=== PATIENT | female | born 1945 | race Caucasian/White ===

== ENCOUNTER → 2017-06-18 | Outpatient (CLI) | payer MEDICARE, OTHER ==
--- NOTE | 2017-06-18 11:33 | RADIOLOGY REPORT (SQ) ---
EXAM DESCRIPTION: CT HEAD WITHOUT COMPLETED DATE/TIME: 06/18/2017 11:15 am REASON FOR STUDY: R20.2 PARESTHESIA OF SKIN R20.2 PARESTHESIA OF SKIN COMPARISON: MRA exam [facility] [place] 08/06/2012 CT brain 08/05/2012 TECHNIQUE: Axial images acquired through the brain without intravenous contrast. Images reviewed wi th bone, brain and subdural windows. Images stored on PACS. All CT scanners at this facility use dose modulation, iterative reconstruction, and/or weight based d osing when appropriate to reduce radiation dose to as low as reasonably achievable (ALARA). [facility]: Dose Right [facility]: CareDose [facility]: Dose Right [facility]: Teradose 4D [facility]: [employer] Digital RADIATION DOSE: CT Rad equipment meets quality standard of care and radiation dose reduction techniq ues were employed. CTDIvol: 21.6 mGy. DLP: 389 mGy-cm. mGy. LIMITATIONS: Very mild motion artifact FINDINGS: VENTRICLES: Normal size and contour. CEREBRUM: No masses. No hemorrhage. No midline shift. No evidence for acute infarction. Normal gra y/white matter differentiation. No areas of low density in the white matter. CEREBELLUM: No masses. No hemorrhage. No alteration of density. No evidence for acute infarction. EXTRAAXIAL SPACES: No fluid collections. No masses. ORBITS AND GLOBE: No intra- or extraconal masses. Normal contour of globe without masses. CALVARIUM: No fracture. PARANASAL SINUSES: No fluid or mucosal thickening. SOFT TISSUES: No mass or hematoma. OTHER: No other significant finding. IMPRESSION: NORMAL BRAIN CT WITHOUT CONTRAST. EVIDENCE OF ACUTE STROKE: NO. COMMENT: Quality ID # 436: Final reports with documentation of one or more dose reduction techniques (e.g., Automated exposure control, adjustment of the mA and/or kV according to patient size, use of iterative reconstruction technique) TECHNICAL DOCUMENTATION: JOB ID: [id number] [employer]- All Rights Reserved Reading location - IP/workstation name: [email or web address]
== END ==
LOC: RAD 11:48
PROVIDERS: ATTEND Physician Assistant
DX: R20.2 Paresthesia of skin (principal)
CPT/HCPCS: 70450

== ENCOUNTER → 2017-06-19 | Outpatient (CLI) | payer MEDICARE, MEDICAID ==
--- NOTE | 2017-06-19 12:16 | RADIOLOGY REPORT (SQ) ---
EXAM DESCRIPTION: CAROTID DOPPLER COMPLETED DATE/TIME: 06/19/2017 12:06 pm REASON FOR STUDY: PARESTHESIA OF SKIN R20.0 R20.2 PARESTHESIA OF SKIN COMPARISON: None. TECHNIQUE: Grayscale ultrasound, Doppler velocity and spectra, and color Doppler images acquired of the extra-cranial carotid and vertebral arteries. Images stored on PACS. LIMITATIONS: None. FINDINGS: RIGHT CAROTID CCA Velocities: Within normal limits. ICA Velocities Peak systolic 1.7 m/s. End diastolic 0.55 m/s. Proximal ICA/CCA peak systolic ratio 1.9. Spectra normal. No significant plaque. LEFT CAROTID CCA Velocities: Within normal limits. ICA Velocities Peak systolic 1.23 m/s. End diastolic 0.46 m/s. Proximal ICA/CCA peak systolic ratio 1.7. Spectra normal. No significant plaque. VERTEBRAL ARTERIES: Antegrade flow SUBCLAVIAN ARTERIES: No significant fine OTHER: No other significant findings IMPRESSION: Flow velocities in the right internal carotid artery are consistent with a 50 to 69% april nosis. Flow velocities in the left internal carotid artery are borderline for a 50 to 69% stenosis. COMMENT: Quality ID #[id number]: Velocity criteria are extrapolated from the diameter data as defined by t he Society of Radiologists in Ultrasound Consensus Conference. Radiology 2003: 229; 340-346. TECHNICAL DOCUMENTATION: JOB ID: [id number] [employer]- All Rights Reserved Reading location - IP/workstation name: [facility]
== END ==
LOC: SP 10:19
PROVIDERS: ATTEND Physician Assistant
DX: R20.2 Paresthesia of skin (principal)
CPT/HCPCS: 93880

== ENCOUNTER → 2017-10-08 | Outpatient (CLI) | payer MEDICARE ==
[2017-10-08 09:46] LABS: BLOOD UREA NITROGEN 11 mg/dL (7-20); CALCIUM 9.4 mg/dL (8.4-10.2); CHLORIDE 99 mmol/L (98-107); GLUCOSE 102 mg/dL (75-110); POTASSIUM 3.5 mmol/L (3.6-5.0); SODIUM 147.5 mmol/L (137-145)
[2017-10-08 10:23] LABS: ANION GAP 12 (5-19)
[2017-10-08 10:24] LABS: CARBON DIOXIDE 37 mmol/L (22-30)
== END ==
LOC: OD 08:29
PROVIDERS: ATTEND Internal Medicine Cardiovascular Disease
DX: R60.9 Edema, unspecified (principal); I10 Essential (primary) hypertension; R06.02 Shortness of breath; I48.2 Chronic atrial fibrillation; Z79.899 Other long term (current) drug therapy
CPT/HCPCS: 36415; 80048; 83735; 83880

== ENCOUNTER → 2017-10-10 | Outpatient (CLI) | payer MEDICARE ==
--- NOTE | 2017-10-10 12:15 | RADIOLOGY REPORT (SQ) ---
EXAM DESCRIPTION: CHEST 2 VIEWS COMPLETED DATE/TIME: 10/10/2017 11:58 am REASON FOR STUDY: MILD INTERMITTENT ASTHMA WITH (ACUTE) EXACERBATION COMPARISON: 08/05/2012 EXAM PARAMETERS: NUMBER OF VIEWS: two views TECHNIQUE: Digital Frontal and Lateral radiographic views of the chest acquired. RADIATION DOSE: NA LIMITATIONS: none FINDINGS: LUNGS AND PLEURA: COPD. Mild chronic interstitial changes. MEDIASTINUM AND HILAR STRUCTURES: Small hiatal hernia. HEART AND VASCULAR STRUCTURES: Mild cardiomegaly. No evidence of failure. BONES: No acute findings. Osteopenia. HARDWARE: Status post CABG and valve replacement. OTHER: No other significant finding. IMPRESSION: Chronic changes without evidence of acute cardiopulmonary disease. TECHNICAL DOCUMENTATION: JOB ID: [id number] [employer]- All Rights Reserved Reading location - IP/workstation name: [email or web address]
== END ==
LOC: RAD 11:28
PROVIDERS: ATTEND Physician Assistant
DX: J45.21 Mild intermittent asthma with (acute) exacerbation (principal)
CPT/HCPCS: 71046

== ENCOUNTER → 2017-10-15 | Outpatient (CLI) | payer MEDICARE ==
[2017-10-15 17:24] LABS: INTERNATIONAL RATION (INR) 2.26
[2017-10-15 17:40] LABS: ANION GAP 10 (5-19); BLOOD UREA NITROGEN 13 mg/dL (7-20); CARBON DIOXIDE 36 mmol/L (22-30); CHLORIDE 99 mmol/L (98-107); GLUCOSE 84 mg/dL (75-110); POTASSIUM 4.2 mmol/L (3.6-5.0); SODIUM 145.1 mmol/L (137-145)
== END ==
LOC: OD 16:01
PROVIDERS: ATTEND Internal Medicine Cardiovascular Disease
DX: E87.6 Hypokalemia (principal); R60.9 Edema, unspecified; I48.2 Chronic atrial fibrillation; I10 Essential (primary) hypertension
CPT/HCPCS: 36415; 80048; 85610

== ENCOUNTER → 2017-10-22 | Outpatient (CLI) | payer MEDICARE ==
[2017-10-22 10:59] LABS: INTERNATIONAL RATION (INR) 2.51; PROTHROMBIN TIME 28.2 SEC (11.4-15.4)
== END ==
LOC: LAB 10:22
PROVIDERS: ATTEND Internal Medicine Cardiovascular Disease
DX: I48.2 Chronic atrial fibrillation (principal)
CPT/HCPCS: 36415; 85610

== ENCOUNTER → 2017-10-30 | Outpatient (CLI) | payer MEDICAID, MEDICARE ==
--- NOTE | 2017-10-30 12:39 | XCELERA REPORT ---
[address] [address] Lower Extremity Arterial Evaluation Name: SOFIA MISTRY Age: 72 yrs Gender: Female : 1945 Patient Status: Outpatient Patient Location: Study Date: 10/30/2017 08:28 AM Procedure: A color flow and duplex scan of the lower extremity arteries was performed bilaterally with velocity and waveform anaylsis. Reason For Study: ABSENT PULSES Ordering Physician: GÓMEZ REYNOSO Performed By: Kobe Wong Measurements and Calculations Right Left REINSTATEMENT CLERK PSV 166.0 165.9 cm/sec Prox PFA PSV -157.2 -103.4 cm/sec Prox SFA PSV 111.9 163.3 cm/sec Mid SFA PSV -148.5 -130.6 cm/sec Dist SFA PSV -69.0 -93.3 cm/sec Prox Pop A PSV 130.4 128.7 cm/sec Dist SURESH PSV 71.2 76.6 cm/sec Dist TELEVISION WRITER PSV 97.8 75.5 cm/sec Rk Pedis PSV 32.2 84.0 cm/sec Right Side Arterial Evaluation Normal velocity and biphasic waveforms noted from the Common Femoral artery to the infrageniculate vessels. 20-19 % stenosis, inflow. Ankle Brachial index not done. Left Side Arterial Evaluation Normal velocity and triphasic waveforms noted in the Common Femoral artery. Biphasic thereafter to the infrageniculate vessels. 0-19% stenosis at the Femoral artery. Ankle Brachial index not done. Interpretation Summary Moderate hemodynamically significant lesions in the right lower extremity only, on duplex imaging, at rest. Mild hemodynamically significant lesions in the left lower extremity only, on duplex imaging, at rest. : GÓMEZ REYNOSO > Gómez Reynoso
== END ==
LOC: SP 07:55
PROVIDERS: ATTEND Surgery
DX: R09.89 Other specified symptoms and signs involving the circulatory and respiratory systems (principal)
CPT/HCPCS: 93925

== ENCOUNTER → 2017-11-06 | Outpatient (CLI) | payer MEDICARE ==
[2017-11-06 10:11] LABS: ANION GAP 7 (5-19); BLOOD UREA NITROGEN 14 mg/dL (7-20); CALCIUM 9.1 mg/dL (8.4-10.2); CARBON DIOXIDE 39 mmol/L (22-30); CHLORIDE 99 mmol/L (98-107); GLUCOSE 102 mg/dL (75-110); POTASSIUM 4.2 mmol/L (3.6-5.0); SODIUM 144.6 mmol/L (137-145)
[2017-11-06 10:13] LABS: INTERNATIONAL RATION (INR) 2.63; PROTHROMBIN TIME 29.3 SEC (11.4-15.4)
== END ==
LOC: LAB 09:29
PROVIDERS: ATTEND Internal Medicine Cardiovascular Disease
DX: I48.2 Chronic atrial fibrillation (principal); I10 Essential (primary) hypertension; E87.6 Hypokalemia; R60.9 Edema, unspecified; Z79.01 Long term (current) use of anticoagulants
CPT/HCPCS: 36415; 80048; 85610

== ENCOUNTER → 2017-11-26 | Outpatient (CLI) | payer MEDICARE, MEDICAID ==
[2017-11-26 14:17] LABS: INTERNATIONAL RATION (INR) 3.63; PROTHROMBIN TIME 37.8 SEC (11.4-15.4)
== END ==
LOC: LAB 13:26
PROVIDERS: ATTEND Internal Medicine Cardiovascular Disease
DX: I48.2 Chronic atrial fibrillation (principal)
CPT/HCPCS: 36415; 85610

== ENCOUNTER → 2018-01-07 | Outpatient (CLI) | payer MEDICARE, MEDICAID ==
[2018-01-07 10:23] LABS: INTERNATIONAL RATION (INR) 3.13; PROTHROMBIN TIME 33.6 SEC (11.4-15.4)
--- NOTE | 2018-01-07 11:23 | RADIOLOGY REPORT (SQ) ---
EXAM DESCRIPTION: CHEST 2 VIEWS COMPLETED DATE/TIME: 01/07/2018 10:18 am REASON FOR STUDY: SHORTNESS OF BREATH COMPARISON: 10/30/2017, 08/05/2012 EXAM PARAMETERS: NUMBER OF VIEWS: two views TECHNIQUE: Digital Frontal and Lateral radiographic views of the chest acquired. RADIATION DOSE: NA LIMITATIONS: none FINDINGS: LUNGS AND PLEURA: Lungs are hyperinflated with flattening of the hemidiaphragms. No focal acute infiltrates. No pleural effusion or pneumothorax. MEDIASTINUM AND HILAR STRUCTURES: Retrocardiac moderate-sized hiatal hernia with air-fluid level HEART AND VASCULAR STRUCTURES: Stable moderate cardiomegaly with old sternotomy and aortic valve repl acement/CABG BONES: Osteoporotic without acute thoracic compression deformity HARDWARE: None in the chest. OTHER: No other significant finding. IMPRESSION: Hyperinflation and hyperlucency from obstructive disease Stable cardiomegaly Old sternotomy with cardiac valve replacement and CABG TECHNICAL DOCUMENTATION: JOB ID: [id number] [employer]- All Rights Reserved Reading location - IP/workstation name: [facility]-[email or web address]
== END ==
LOC: LAB 09:42
PROVIDERS: ATTEND Internal Medicine Cardiovascular Disease
DX: I48.2 Chronic atrial fibrillation (principal); R06.02 Shortness of breath; I51.7 Cardiomegaly; Z95.2 Presence of prosthetic heart valve; Z95.1 Presence of aortocoronary bypass graft; K44.9 Diaphragmatic hernia without obstruction or gangrene
CPT/HCPCS: 36415; 71046; 85610

== ENCOUNTER → 2018-01-13 | Outpatient (CLI) | payer MEDICARE, MEDICAID ==
[2018-01-13 07:37] LABS: INTERNATIONAL RATION (INR) 3.06
[2018-01-14 08:14] LABS: ANION GAP 8 (5-19); BLOOD UREA NITROGEN 16 mg/dL (7-20); CALCIUM 9.7 mg/dL (8.4-10.2); CARBON DIOXIDE 35 mmol/L (22-30); CHLORIDE 100 mmol/L (98-107); GLUCOSE 92 mg/dL (75-110); POTASSIUM 4.4 mmol/L (3.6-5.0); SODIUM 143.3 mmol/L (137-145)
== END ==
LOC: LAB 07:08
PROVIDERS: ATTEND Internal Medicine Cardiovascular Disease
DX: I48.2 Chronic atrial fibrillation (principal); R06.02 Shortness of breath; R60.9 Edema, unspecified
CPT/HCPCS: 36415; 80048; 83880; 85610

== ENCOUNTER 2018-01-23 08:19 | Emergency (ER) | payer MEDICARE, MEDICAID ==
[2018-01-23] MEDS ORDERED: ACETAMINOPHEN 325 MG TABLET PO ONE (09:11)
[2018-01-23] MEDS ORDERED: DIPH/PERTUSS(ACELL)/TETANUS VAC/PF 0.5 ML SYR (>=10YO) IM ONE (09:11)
--- NOTE | 2018-01-23 09:11 | RADIOLOGY REPORT (SQ) ---
EXAM DESCRIPTION: CT HEAD WITHOUT COMPLETED DATE/TIME: 01/23/2018 9:02 am REASON FOR STUDY: fall, head injury, on coumadin COMPARISON: None. TECHNIQUE: Axial images acquired through the brain without intravenous contrast. Images reviewed wi th bone, brain and subdural windows. Additional sagittal and coronal reconstructions were generated. Images stored on PACS. All CT scanners at this facility use dose modulation, iterative reconstruction, and/or weight based d osing when appropriate to reduce radiation dose to as low as reasonably achievable (ALARA). [facility]: Dose Right [facility]: CareDose [facility]: Dose Right [facility]: Teradose 4D [facility]: [employer] RADIATION DOSE: CT Rad equipment meets quality standard of care and radiation dose reduction techniq ues were employed. CTDIvol: 23.1 mGy. DLP: 464 mGy-cm. mGy. LIMITATIONS: None. FINDINGS: VENTRICLES: Prominent. CEREBRUM: No masses. No hemorrhage. No midline shift. Areas of low density in the white matter mos t likely due to chronic micro-vascular ischemic change. No evidence for acute infarction. CEREBELLUM: No masses. No hemorrhage. No alteration of density. No evidence for acute infarction. EXTRAAXIAL SPACES: Mild age-related involutional change. No fluid collections. No masses. ORBITS AND GLOBE: No intra- or extraconal masses. Normal contour of globe without masses. CALVARIUM: No fracture. PARANASAL SINUSES: No fluid or mucosal thickening. SOFT TISSUES: Right frontal scalp hematoma. OTHER: No other significant finding. IMPRESSION: MILD CHRONIC CHANGES OF ATROPHY AND MICROVASCULAR ISCHEMIA. NO ACUTE PROCESS. EVIDENCE OF ACUTE STROKE: NO. TECHNICAL DOCUMENTATION: JOB ID: [id number] Quality ID # 436: Final reports with documentation of one or more dose reduction techniques (e.g., Au tomated exposure control, adjustment of the mA and/or kV according to patient size, use of iterative reconstruction technique) 2010 [employer]- All Rights Reserved Reading location - IP/workstation name: [email or web address]
--- NOTE | 2018-01-23 09:13 | RADIOLOGY REPORT (SQ) ---
EXAM DESCRIPTION: CT CERVICAL SPINE WITHOUT COMPLETED DATE/TIME: 01/23/2018 9:02 am REASON FOR STUDY: fall, head injury, on coumadin COMPARISON: None. TECHNIQUE: Axial images acquired through the cervical spine without intravenous contrast. Images re viewed with lung, soft tissue and bone windows. Reconstructed coronal and sagittal MPR images review ed. Images stored on PACS. All CT scanners at this facility use dose modulation, iterative reconstruction, and/or weight based d osing when appropriate to reduce radiation dose to as low as reasonably achievable (ALARA). [facility]: Dose Right [facility]: CareDose [facility]: Dose Right [facility]: Teradose 4D [facility]: [employer] RADIATION DOSE: CT Rad equipment meets quality standard of care and radiation dose reduction techniq ues were employed. CTDIvol: 36.2 mGy. DLP: 739 mGy-cm. mGy. LIMITATIONS: None. FINDINGS: ALIGNMENT: Kyphosis. MINERALIZATION: Normal. VERTEBRAL BODIES: No fractures or dislocation. DISCS: Multilevel disc space narrowing with osteophytes. FACETS, LATERAL MASSES, POSTERIOR ELEMENTS: Facet arthropathy. No fractures. No dislocation. No ac benton findings. HARDWARE: None in the spine. VISUALIZED RIBS: No fractures. LUNG APICES AND SOFT TISSUES: No significant or acute findings. OTHER: No other significant finding. IMPRESSION: CHRONIC DEGENERATIVE CHANGES. NO ACUTE FINDINGS. TECHNICAL DOCUMENTATION: JOB ID: [id number] Quality ID # [id number]: Final reports with documentation of one or more dose reduction techniques (e.g., Au tomated exposure control, adjustment of the mA and/or kV according to patient size, use of iterative reconstruction technique) 2010 [employer]- All Rights Reserved Reading location - IP/workstation name: [email or web address]
--- NOTE | 2018-01-23 09:38 | RADIOLOGY REPORT (SQ) ---
EXAM DESCRIPTION: FINGER RIGHT COMPLETED DATE/TIME: 01/23/2018 9:29 am REASON FOR STUDY: r 5th finger injury COMPARISON: None. NUMBER OF VIEWS: Three views. TECHNIQUE: AP, lateral, and oblique images acquired of the right fifth finger. LIMITATIONS: None. FINDINGS: MINERALIZATION: Osteopenia. BONES: No acute fracture or dislocation. No worrisome bone lesions. SOFT TISSUES: No soft tissue swelling. No foreign body. OTHER: No other significant finding. IMPRESSION: NO RADIOGRAPHIC EVIDENCE OF ACUTE INJURY. COMMENT: SITE OF TRAUMA/COMPLAINT MARKED/STAMP COMPLETED: NOT APPLICABLE. TECHNICAL DOCUMENTATION: JOB ID: [id number] [employer]- All Rights Reserved Reading location - IP/workstation name: [email or web address]
--- NOTE | 2018-01-23 09:40 | ER Document Report ---
ED Fall - General Chief Complaint: Fall Injury Stated Complaint: FALL Time Seen by Provider: 01/23/18 08:40 Mode of Arrival: Wheelchair Information source: Patient, Relative Notes: Patient states that she was walking on a ramp and someone had left a board on the ramp over which she tripped. Patient fell hitting her head on the ramp. Patient does take Coumadin. Patient complains of right sided forehead pain with swelling, bilateral knee abrasions and ecchymosis to right hand. Patient denies any loss of consciousness nausea or vomiting. TRAVEL OUTSIDE OF THE [place] IN LAST 30 DAYS: No - HPI Occurred: Just prior to arrival Where: Home Context: Tripped Associated symptoms: denies: Lost consciousness, Seizure, Difficulty walking Location of injury/pain: Hand, Head, Knee Quality of pain: Achy Pain Level: 1 - Related data Allergies/Adverse Reactions: JANUSZ Inhibitors [Janusz Inhibitors] Allergy (Verified 01/23/18 08:30) Rash ACEINHIBITORS [JANUSZ Inhibitors] Allergy (Verified 01/23/18 08:30) RASH fish derived [Fish derived] Allergy (Verified 01/23/18 08:30) RASH latex Allergy (Verified 01/23/18 08:30) NSAIDS (Non-Steroidal Anti-Inflamma [Nsaids] Allergy (Verified 01/23/18 08:30) RASH tramadol [Tramadol] Allergy (Verified 01/23/18 08:30) RASH Past Medical History - General Information source: Patient - Social History Smoking Status: Former Smoker Chew tobacco use (# tins/day): No Frequency of alcohol use: None Drug Abuse: None Lives with: Family Family History: CVA, DM Patient has suicidal ideation: No Patient has homicidal ideation: No - Past Medical History Cardiac Medical History: Reports: Hx Atrial Fibrillation, Hx Congestive Heart Failure, Hx Coronary Artery Disease, Hx Hypercholesterolemia, Hx Hypertension - MEDS Denies: Hx Heart Attack Pulmonary Medical History: Reports: Hx COPD Denies: Hx Asthma, Hx Bronchitis, Hx Pneumonia Neurological Medical History: Denies: Hx Cerebrovascular Accident, Hx Seizures Renal/ Medical History: Denies: Hx Peritoneal Dialysis GI Medical History: Denies: Hx Hepatitis, Hx Hiatal Hernia, Hx Ulcer Musculoskeletal Medical History: Reports Hx Arthritis Infectious Medical History: Reports: Hx MRSA. Denies: Hx Hepatitis Past Surgical History: Reports: Hx Cardiac Catheterization, Hx Cardiac Surgery, Hx Coronary Artery Bypass Graft, Hx Open Heart Surgery - CABG X2, VALVE REPLACEMENT. Denies: Hx Hysterectomy, Hx Mastectomy, Hx Pacemaker - Immunizations Hx Diphtheria, Pertussis, Tetanus Vaccination: No Hx Pneumococcal Vaccination: 12/08/11 Review of Systems - Review of Systems Constitutional: No symptoms reported. denies: Fever EENT: No symptoms reported Cardiovascular: No symptoms reported. denies: Chest pain Respiratory: No symptoms reported. denies: Cough, Short of breath Gastrointestinal: No symptoms reported. denies: Abdominal pain, Nausea, Vomiting Genitourinary: No symptoms reported Female Genitourinary: No symptoms reported Musculoskeletal: Joint pain - Right hand fifth MCP joint. denies: Back pain Skin: Other - Abrasion to bilateral knees, hematoma to right side of forehead Hematologic/Lymphatic: No symptoms reported Neurological/Psychological: Headaches Physical Exam - Vital signs Vitals: Temp Pulse Resp BP Pulse Ox 97.7 F 82 18 100/81 89 L 01/23/18 08:41 01/23/18 08:41 01/23/18 08:41 01/23/18 08:41 01/23/18 08:41 - General General appearance: Appears well, Alert In distress: None - HEENT Head: Abrasions - Abrasion overlying hematoma to right side of forehead, Ecchymosis, Tenderness. No: Racoon's eyes Eyes: Normal Conjunctiva: Normal Eyelashes: Normal Pupils: PERRL Ears: Normal External canal: Normal Tympanic membrane: Normal. No: Hemotympanum Mouth/Lips: Normal Mucous membranes: Normal Pharynx: Normal Neck: Normal, Supple, Other - Cervical tenderness C 4 through 6 area, no step- offs or deformity. No: Lymphadenopathy - Respiratory Respiratory status: No respiratory distress Chest status: Nontender Breath sounds: Normal. No: Rales, Rhonchi, Stridor, Wheezing Chest palpation: Normal - Cardiovascular Rhythm: Regular Heart sounds: S1 appreciated, S2 appreciated - Abdominal Inspection: Normal Distension: No distension Bowel sounds: Normal Tenderness: Nontender Organomegaly: No organomegaly - Back Back: Normal, Nontender. No: Deformity/step-off, CVA tenderness, Vertebra tenderness - Extremities General upper extremity: Normal strength, Other - Mild ecchymosis overlying right fifth MCP joint, normal range of motion to the joint. General lower extremity: Nontender, Normal strength Knee: Nontender, Abrasion, Patellar tendon intact. No: Deformity, Dislocation, Joint effusion, Laceration, Laxity with valgus stress, Laxity with varus stress , Pain with ROM - Neurological Neuro grossly intact: Yes Cognition: Normal Avalon Coma Scale Eye Opening: Spontaneous Romero Coma Scale Verbal: Oriented Romero Coma Scale Motor: Obeys Commands Avalon Coma Scale Total: 15 - Psychological Associated symptoms: Normal affect, Normal mood - Skin Skin Temperature: Warm Skin Moisture: Dry Skin Color: Ecchymosis - Right side of forehead, right fifth finger Course - Re-evaluation Re-evalutation: 01/23/18 10:12 Patient continues awake alert and oriented. No focal neurologic deficit. Pt without any skull fracture or intracranial hemorrhage after fall. Discussed worsening symptoms of patient should return immediately for. Patient verbalized understanding and agrees with discharge plan of care. Patient's INR is 1.99. Patient does have a mechanical valve. Patient will be advised of her INR and instructed to contact her primary care provider for further instructions regarding her medication regimen. 01/23/18 10:12 - Vital Signs Vital signs: Temp Pulse Resp BP Pulse Ox 97.9 F 80 18 119/64 94 01/23/18 10:48 01/23/18 10:48 01/23/18 10:48 01/23/18 10:48 01/23/18 10:48 - Laboratory Result Diagrams: 01/23/18 09:33 Laboratory results interpreted by me: 01/23/18 01/23/18 09:33 09:33 Hgb 15.7 H PT 23.6 H Labs- Entire Visit 01/23/18 01/23/18 09:33 09:33 WBC 5.4 RBC 4.94 Hgb 15.7 H Hct 46.8 MCV 95 MCH 31.7 MCHC 33.4 RDW 13.3 Plt Count 178 Seg Neutrophils % 67.1 Lymphocytes % 19.9 Monocytes % 9.3 Eosinophils % 2.7 Basophils % 1.0 Absolute Neutrophils 3.6 Absolute Lymphocytes 1.1 Absolute Monocytes 0.5 Absolute Eosinophils 0.1 Absolute Basophils 0.1 PT 23.6 H INR 1.99 - Diagnostic Test Radiology reviewed: Image reviewed, Reports reviewed Discharge - Discharge Clinical Impression: Abrasion of knee, bilateral Fall Qualifiers: Encounter type: initial encounter Qualified Code(s): W19.XXXA - Unspecified fall, initial encounter Head injury Qualifiers: Encounter type: initial encounter Qualified Code(s): S09.90XA - Unspecified injury of head, initial encounter Hematoma of scalp Qualifiers: Encounter type: initial encounter Qualified Code(s): S00.03XA - Contusion of scalp, initial encounter Contusion, hand Qualifiers: Encounter type: initial encounter Laterality: right Qualified Code(s): S60.221A - Contusion of right hand, initial encounter Condition: Stable Disposition: HOME, SELF-CARE Instructions: Abrasions ([facility]), Head Injury Precautions ([facility]), Scalp Hematoma ( [facility]) Additional Instructions: Return immediately for any new or worsening symptoms Followup with your primary care provider, call tomorrow to make a followup appointment You may take Tylenol [id number] to help with any body pain. Your INR today was 1.99. Contact your primary care provider and let them know about your visit today and watch her INR was. They may need to adjust your medications. Referrals: OTTO ALLEN MD [Primary Care Provider] - Follow up as needed KRUPA VANCE PA-C [NO LOCAL MD] - Follow up tomorrow
[2018-01-23 09:50] LABS: ABSOLUTE BASOPHILS # (AUTO) 0.1 10^3/uL (0.0-0.2); ABSOLUTE EOSINOPHILS # (AUTO) 0.1 10^3/uL (0.0-0.6); ABSOLUTE LYMPHOCYTES (AUTO) 1.1 10^3/uL (0.5-4.7); ABSOLUTE MONOCYTES (AUTO) 0.5 10^3/uL (0.1-1.4); ABSOLUTE NEUT (AUTO) 3.6 10^3/uL (1.7-8.2); EOSINOPHILS % (AUTO) 2.7 % (0-6); HEMATOCRIT 46.8 % (36.0-47.0); HEMOGLOBIN 15.7 g/dL (12.0-15.5); LYMPHOCYTES % (AUTO) 19.9 % (13-45); MEAN CORPUSCULAR HEMOGLOBIN 31.7 pg (27.0-33.4); MEAN CORPUSCULAR HGB CONC 33.4 g/dL (32.0-36.0); MEAN CORPUSCULAR VOLUME 95 fl (80-97); MONOCYTES % (AUTO) 9.3 % (3-13); PLATELET COUNT 178 10^3/uL (150-450); RED BLOOD COUNT 4.94 10^6/uL (3.72-5.28); RED CELL DISTRIBUTION WIDTH 13.3 % (11.5-14.0); SEGMENTED NEUTROPHILS % (AUTO) 67.1 % (42-78); TOTAL CELLS COUNTED % (AUTO) 100 %; WHITE BLOOD COUNT 5.4 10^3/uL (4.0-10.5)
[2018-01-23 09:55] LABS: INTERNATIONAL RATION (INR) 1.99; PROTHROMBIN TIME 23.6 SEC (11.4-15.4)
[2018-01-23 10:54] VITALS: BP 119/64
== END 2018-01-23 10:55 | disposition home or self-care (01) ==
LOC: ER 08:19
DX: S09.90XA Unspecified injury of head, initial encounter (principal); S00.03XA Contusion of scalp, initial encounter; S60.221A Contusion of right hand, initial encounter; S60.511A Abrasion of right hand, initial encounter; Z23 Encounter for immunization; W01.0XXA Fall on same level from slipping, tripping and stumbling without subsequent striking against object, initial encounter; Y92.009 Unspecified place in unspecified non-institutional (private) residence as the place of occurrence of the external cause; I48.91 Unspecified atrial fibrillation; I50.9 Heart failure, unspecified; E78.00 Pure hypercholesterolemia, unspecified; I11.0 Hypertensive heart disease with heart failure; J44.9 Chronic obstructive pulmonary disease, unspecified; Z95.1 Presence of aortocoronary bypass graft; Z88.6 Allergy status to analgesic agent; Z91.040 Latex allergy status; Z95.2 Presence of prosthetic heart valve
CPT/HCPCS: 36415; 70450; 72125; 85025; 85610; 90471; 90715; 99284

== ENCOUNTER → 2018-01-28 | Outpatient (CLI) | payer MEDICARE, MEDICAID ==
[2018-01-28 08:16] LABS: INTERNATIONAL RATION (INR) 3.17
== END ==
LOC: LAB 07:52
PROVIDERS: ATTEND Internal Medicine Cardiovascular Disease
DX: I48.2 Chronic atrial fibrillation (principal); Z79.01 Long term (current) use of anticoagulants
CPT/HCPCS: 36415; 85610

== ENCOUNTER → 2018-02-03 | Outpatient (CLI) | payer MEDICARE, MEDICAID ==
[2018-02-03 11:11] LABS: INTERNATIONAL RATION (INR) 1.64; PROTHROMBIN TIME 20.2 SEC (11.4-15.4)
[2018-02-03 11:31] LABS: ANION GAP 9 (5-19); BLOOD UREA NITROGEN 18 mg/dL (7-20); CALCIUM 9.5 mg/dL (8.4-10.2); CARBON DIOXIDE 39 mmol/L (22-30); CHLORIDE 96 mmol/L (98-107); GLUCOSE 106 mg/dL (75-110); POTASSIUM 4.7 mmol/L (3.6-5.0)
== END ==
LOC: LAB 10:34
PROVIDERS: ATTEND Internal Medicine Cardiovascular Disease
DX: R60.9 Edema, unspecified (principal); R06.02 Shortness of breath; I48.2 Chronic atrial fibrillation; Z79.01 Long term (current) use of anticoagulants
CPT/HCPCS: 36415; 80048; 85610

== ENCOUNTER → 2018-02-10 | Outpatient (CLI) | payer MEDICARE, MEDICAID ==
[2018-02-10 10:51] LABS: INTERNATIONAL RATION (INR) 2.55; PROTHROMBIN TIME 28.6 SEC (11.4-15.4)
[2018-02-10 11:04] LABS: ANION GAP 11 (5-19); BLOOD UREA NITROGEN 15 mg/dL (7-20); CALCIUM 9.5 mg/dL (8.4-10.2); CARBON DIOXIDE 36 mmol/L (22-30); CHLORIDE 97 mmol/L (98-107); GLUCOSE 103 mg/dL (75-110); POTASSIUM 4.6 mmol/L (3.6-5.0); SODIUM 144.2 mmol/L (137-145)
== END ==
LOC: LAB 10:13
PROVIDERS: ATTEND Internal Medicine Cardiovascular Disease
DX: R80.9 Proteinuria, unspecified (principal); I48.2 Chronic atrial fibrillation; Z79.01 Long term (current) use of anticoagulants
CPT/HCPCS: 36415; 80048; 85610

== ENCOUNTER → 2018-02-24 | Outpatient (CLI) | payer MEDICARE, MEDICAID ==
[2018-02-24 09:02] LABS: INTERNATIONAL RATION (INR) 2.86; PROTHROMBIN TIME 31.3 SEC (11.4-15.4)
[2018-02-24 09:18] LABS: ANION GAP 11 (5-19); BLOOD UREA NITROGEN 17 mg/dL (7-20); CALCIUM 9.1 mg/dL (8.4-10.2); CARBON DIOXIDE 35 mmol/L (22-30); CHLORIDE 97 mmol/L (98-107); GLUCOSE 102 mg/dL (75-110); POTASSIUM 4.2 mmol/L (3.6-5.0); SODIUM 142.7 mmol/L (137-145)
== END ==
LOC: LAB 08:34
PROVIDERS: ATTEND Internal Medicine Cardiovascular Disease
DX: I48.2 Chronic atrial fibrillation (principal); R60.9 Edema, unspecified; R06.02 Shortness of breath
CPT/HCPCS: 36415; 80048; 85610

== ENCOUNTER → 2018-03-04 | Outpatient (CLI) | payer MEDICARE, MEDICAID ==
[2018-03-04 10:17] LABS: HEMATOCRIT 38.7 % (36.0-47.0); HEMOGLOBIN 12.9 g/dL (12.0-15.5); MEAN CORPUSCULAR HEMOGLOBIN 31.9 pg (27.0-33.4); MEAN CORPUSCULAR HGB CONC 33.2 g/dL (32.0-36.0); MEAN CORPUSCULAR VOLUME 96 fl (80-97); PLATELET COUNT 162 10^3/uL (150-450); RED BLOOD COUNT 4.03 10^6/uL (3.72-5.28); RED CELL DISTRIBUTION WIDTH 13.4 % (11.5-14.0); WHITE BLOOD COUNT 4.2 10^3/uL (4.0-10.5)
[2018-03-04 10:30] LABS: INTERNATIONAL RATION (INR) 3.17
[2018-03-04 10:43] LABS: ALANINE AMINOTRANSFERASE 21 U/L (9-52); ALBUMIN 3.8 g/dL (3.5-5.0); ALKALINE PHOSPHATASE 87 U/L (38-126); ASPARTATE AMINO TRANSFERASE 28 U/L (14-36); BILIRUBIN,DIRECT 0.2 mg/dL (0.0-0.4); BILIRUBIN,TOTAL 0.4 mg/dL (0.2-1.3); BLOOD UREA NITROGEN 18 mg/dL (7-20); CHLORIDE 96 mmol/L (98-107); CHOLESTEROL 125.02 mg/dL (0-200); GLUCOSE 97 mg/dL (75-110); POTASSIUM 4.1 mmol/L (3.6-5.0); SODIUM 143.3 mmol/L (137-145); TOTAL PROTEIN 6.5 g/dL (6.3-8.2); TRIGLYCERIDES 92 mg/dL (<150)
[2018-03-04 10:50] LABS: ANION GAP 8 (5-19); CARBON DIOXIDE 39 mmol/L (22-30)
[2018-03-04 10:54] LABS: DIRECT LDL 80 mg/dL (<100)
== END ==
LOC: LAB 09:49
PROVIDERS: ATTEND Internal Medicine Cardiovascular Disease
DX: I25.10 Atherosclerotic heart disease of native coronary artery without angina pectoris (principal); I10 Essential (primary) hypertension; M25.561 Pain in right knee; M25.562 Pain in left knee; I48.2 Chronic atrial fibrillation
CPT/HCPCS: 36415; 80053; 80061; 85027; 85610

== ENCOUNTER → 2018-03-17 | Outpatient (CLI) | payer MEDICARE, MEDICAID ==
[2018-03-17 09:46] LABS: PROTHROMBIN TIME 20.8 SEC (11.4-15.4)
== END ==
LOC: LAB 09:12
PROVIDERS: ATTEND Internal Medicine Cardiovascular Disease
DX: I48.2 Chronic atrial fibrillation (principal); Z79.01 Long term (current) use of anticoagulants
CPT/HCPCS: 36415; 85610

== ENCOUNTER → 2018-03-28 | Outpatient (CLI) | payer MEDICARE, MEDICAID ==
[2018-03-28 10:58] LABS: PROTHROMBIN TIME 31.7 SEC (11.4-15.4)
== END ==
LOC: LAB 10:36
PROVIDERS: ATTEND Internal Medicine Cardiovascular Disease
DX: I48.2 Chronic atrial fibrillation (principal)
CPT/HCPCS: 36415; 85610

== ENCOUNTER → 2018-04-09 | Outpatient (CLI) | payer MEDICARE, MEDICAID ==
[2018-04-09 10:12] LABS: INTERNATIONAL RATION (INR) 1.72
[2018-04-09 10:22] LABS: ANION GAP 6 (5-19); BLOOD UREA NITROGEN 16 mg/dL (7-20); CALCIUM 9.7 mg/dL (8.4-10.2); CARBON DIOXIDE 38 mmol/L (22-30); CHLORIDE 98 mmol/L (98-107); GLUCOSE 96 mg/dL (75-110); POTASSIUM 4.1 mmol/L (3.6-5.0); SODIUM 141.7 mmol/L (137-145)
== END ==
LOC: LAB 09:36
PROVIDERS: ATTEND Internal Medicine Cardiovascular Disease
DX: R60.9 Edema, unspecified (principal); I10 Essential (primary) hypertension; Z79.899 Other long term (current) drug therapy
CPT/HCPCS: 36415; 80048; 83735; 85610

== ENCOUNTER → 2018-04-18 | Outpatient (CLI) | payer MEDICARE, MEDICAID ==
[2018-04-18 12:15] LABS: INTERNATIONAL RATION (INR) 2.43; PROTHROMBIN TIME 27.6 SEC (11.4-15.4)
== END ==
LOC: LAB 11:49
PROVIDERS: ATTEND Internal Medicine Cardiovascular Disease
DX: I48.2 Chronic atrial fibrillation (principal)
CPT/HCPCS: 36415; 85610

== ENCOUNTER → 2018-05-05 | Outpatient (CLI) | payer MEDICARE, MEDICAID ==
[2018-05-05 13:52] LABS: INTERNATIONAL RATION (INR) 2.03; PROTHROMBIN TIME 23.9 SEC (11.4-15.4)
== END ==
LOC: LAB 13:15
PROVIDERS: ATTEND Internal Medicine Cardiovascular Disease
DX: I48.2 Chronic atrial fibrillation (principal)
CPT/HCPCS: 36415; 85610

== ENCOUNTER → 2018-05-19 | Outpatient (CLI) | payer MEDICARE, MEDICAID ==
[2018-05-19 09:31] LABS: HEMATOCRIT 40.8 % (36.0-47.0); HEMOGLOBIN 13.8 g/dL (12.0-15.5); MEAN CORPUSCULAR HEMOGLOBIN 31.9 pg (27.0-33.4); MEAN CORPUSCULAR HGB CONC 33.8 g/dL (32.0-36.0); MEAN CORPUSCULAR VOLUME 95 fl (80-97); PLATELET COUNT 156 10^3/uL (150-450); RED BLOOD COUNT 4.32 10^6/uL (3.72-5.28); RED CELL DISTRIBUTION WIDTH 12.4 % (11.5-14.0)
[2018-05-19 09:46] LABS: INTERNATIONAL RATION (INR) 2.51; PROTHROMBIN TIME 28.2 SEC (11.4-15.4)
== END ==
LOC: LAB 09:12
PROVIDERS: ATTEND Internal Medicine Cardiovascular Disease
DX: I48.2 Chronic atrial fibrillation (principal); R42 Dizziness and giddiness; Z79.01 Long term (current) use of anticoagulants
CPT/HCPCS: 36415; 85027; 85610

== ENCOUNTER → 2018-06-03 | Outpatient (CLI) | payer MEDICARE, MEDICAID ==
[2018-06-03 10:49] LABS: INTERNATIONAL RATION (INR) 2.21; PROTHROMBIN TIME 25.6 SEC (11.4-15.4)
== END ==
LOC: LAB 10:10
PROVIDERS: ATTEND Internal Medicine Cardiovascular Disease
DX: I48.2 Chronic atrial fibrillation (principal)
CPT/HCPCS: 36415; 85610

== ENCOUNTER → 2018-06-17 | Outpatient (CLI) | payer MEDICARE ==
[2018-06-17 08:51] LABS: INTERNATIONAL RATION (INR) 2.26; PROTHROMBIN TIME 26.1 SEC (11.4-15.4)
--- NOTE | 2018-06-17 10:23 | RADIOLOGY REPORT (SQ) ---
EXAM DESCRIPTION: MRI CERVICAL SPINE WITHOUT COMPLETED DATE/TIME: 06/17/2018 10:06 am REASON FOR STUDY: RADICULOPATHY, CERVICAL REGION M54.12 RADICULOPATHY, CERVICAL REGION I48.2 CHRON IC ATRIAL FIBRILLATION COMPARISON: CT cervical spine 01/23/2018 TECHNIQUE: Sagittal and Axial imaging includes T1, T2, STIR and gradient echo sequences. LIMITATIONS: Patient's kyphosis prevented S from using the standard cervical coil, limited signal to noise FINDINGS: ALIGNMENT: Reversal of cervical curvature similar compared to CT exam 01/23/2018. VERTEBRAE: Intact. BONE MARROW: Normal. No marrow replacement or reactive changes. DISCS: Diffuse decreased T2 weighted intervertebral disc signal with disc space loss of height at C5- 6 and C6-7 HARDWARE: None in the spine. CORD AND BASE OF BRAIN: Normal in size and signal intensity. SOFT TISSUES: No soft tissue masses. C1-C2: No significant spinal stenosis. C2-C3: No significant spinal stenosis or exit foraminal stenosis. C3-C4: No significant spinal stenosis or exit foraminal stenosis. C4-C5: No significant spinal stenosis or exit foraminal stenosis. C5-C6: No significant spinal stenosis or exit foraminal stenosis. C6-C7: No significant spinal stenosis or exit foraminal stenosis. C7-T1: No significant spinal stenosis or exit foraminal stenosis. OTHER: No other significant finding. IMPRESSION: Reversal of cervical curvature due to patient positioning. Otherwise unremarkable study . No high-grade central or foraminal encroachment. TECHNICAL DOCUMENTATION: JOB ID: [id number] [employer]- All Rights Reserved Reading location - IP/workstation name: [email or web address]
== END ==
LOC: RAD 08:43
PROVIDERS: ATTEND Physician Assistant
DX: M54.12 Radiculopathy, cervical region (principal); I48.2 Chronic atrial fibrillation; Z79.01 Long term (current) use of anticoagulants
CPT/HCPCS: 36415; 72141; 85610

== ENCOUNTER → 2018-07-17 | Outpatient (CLI) | payer MEDICARE ==
[2018-07-17 12:44] LABS: PROTHROMBIN TIME 21.8 SEC (11.4-15.4)
== END ==
LOC: LAB 11:44
PROVIDERS: ATTEND Internal Medicine Cardiovascular Disease
DX: I48.2 Chronic atrial fibrillation (principal)
CPT/HCPCS: 36415; 85610

== ENCOUNTER → 2018-07-30 | Outpatient (CLI) | payer MEDICARE ==
[2018-07-30 09:25] LABS: INTERNATIONAL RATION (INR) 2.97; PROTHROMBIN TIME 32.3 SEC (11.4-15.4)
== END ==
LOC: LAB 08:59
PROVIDERS: ATTEND Internal Medicine Cardiovascular Disease
DX: I48.2 Chronic atrial fibrillation (principal)
CPT/HCPCS: 36415; 85610

== ENCOUNTER → 2018-08-13 | Outpatient (CLI) | payer MEDICARE, MEDICAID ==
[2018-08-13 08:43] LABS: INTERNATIONAL RATION (INR) 1.96; PROTHROMBIN TIME 23.3 SEC (11.4-15.4)
[2018-08-13 08:53] LABS: ANION GAP 8 (5-19); BLOOD UREA NITROGEN 19 mg/dL (7-20); CALCIUM 9.2 mg/dL (8.4-10.2); CARBON DIOXIDE 39 mmol/L (22-30); CHLORIDE 98 mmol/L (98-107); GLUCOSE 117 mg/dL (75-110); POTASSIUM 4.3 mmol/L (3.6-5.0); SODIUM 145.2 mmol/L (137-145)
== END ==
LOC: LAB 08:05
PROVIDERS: ATTEND Internal Medicine Cardiovascular Disease
DX: I48.2 Chronic atrial fibrillation (principal); I10 Essential (primary) hypertension; Z79.899 Other long term (current) drug therapy; Z79.01 Long term (current) use of anticoagulants
CPT/HCPCS: 36415; 80048; 85610

== ENCOUNTER → 2018-08-27 | Outpatient (CLI) | payer MEDICARE, MEDICAID ==
[2018-08-27 10:15] LABS: HEMATOCRIT 42.2 % (36.0-47.0); HEMOGLOBIN 13.8 g/dL (12.0-15.5); MEAN CORPUSCULAR HEMOGLOBIN 30.8 pg (27.0-33.4); MEAN CORPUSCULAR HGB CONC 32.6 g/dL (32.0-36.0); MEAN CORPUSCULAR VOLUME 95 fl (80-97); PLATELET COUNT 145 10^3/uL (150-450); RED BLOOD COUNT 4.47 10^6/uL (3.72-5.28); RED CELL DISTRIBUTION WIDTH 13.3 % (11.5-14.0); WHITE BLOOD COUNT 3.4 10^3/uL (4.0-10.5)
[2018-08-27 10:30] LABS: INTERNATIONAL RATION (INR) 2.47; PROTHROMBIN TIME 27.9 SEC (11.4-15.4)
[2018-08-27 10:34] LABS: ALANINE AMINOTRANSFERASE 23 U/L (9-52); ALBUMIN 3.8 g/dL (3.5-5.0); ALKALINE PHOSPHATASE 92 U/L (38-126); ANION GAP 7 (5-19); ASPARTATE AMINO TRANSFERASE 37 U/L (14-36); BILIRUBIN,DIRECT 0.3 mg/dL (0.0-0.4); BILIRUBIN,TOTAL 0.4 mg/dL (0.2-1.3); BLOOD UREA NITROGEN 20 mg/dL (7-20); CALCIUM 9.3 mg/dL (8.4-10.2); CARBON DIOXIDE 39 mmol/L (22-30); CHLORIDE 97 mmol/L (98-107); CHOLESTEROL 137.61 mg/dL (0-200); GLUCOSE 97 mg/dL (75-110); POTASSIUM 4.1 mmol/L (3.6-5.0); SODIUM 143.3 mmol/L (137-145); TOTAL PROTEIN 6.8 g/dL (6.3-8.2); TRIGLYCERIDES 88 mg/dL (<150)
[2018-08-27 10:45] LABS: DIRECT LDL 73 mg/dL (<100)
== END ==
LOC: LAB 09:47
PROVIDERS: ATTEND Internal Medicine Cardiovascular Disease
DX: I48.2 Chronic atrial fibrillation (principal); E78.00 Pure hypercholesterolemia, unspecified; I10 Essential (primary) hypertension; Z79.899 Other long term (current) drug therapy
CPT/HCPCS: 36415; 80048; 80061; 80076; 83735; 85027; 85610

== ENCOUNTER → 2018-09-12 | Outpatient (CLI) | payer MEDICARE, MEDICAID ==
[2018-09-12 11:05] LABS: INTERNATIONAL RATION (INR) 2.04
== END ==
LOC: LAB 10:31
PROVIDERS: ATTEND Internal Medicine Cardiovascular Disease
DX: I48.2 Chronic atrial fibrillation (principal)
CPT/HCPCS: 36415; 85610

== ENCOUNTER → 2018-09-25 | Outpatient (CLI) | payer MEDICARE, MEDICAID ==
[2018-09-25 10:58] LABS: INTERNATIONAL RATION (INR) 2.46; PROTHROMBIN TIME 27.8 SEC (11.4-15.4)
== END ==
LOC: LAB 10:30
PROVIDERS: ATTEND Internal Medicine Cardiovascular Disease
DX: I48.2 Chronic atrial fibrillation (principal)
CPT/HCPCS: 36415; 85610

== ENCOUNTER → 2018-10-13 | Outpatient (CLI) | payer MEDICARE, MEDICAID ==
[2018-10-13 09:48] LABS: HEMATOCRIT 41.9 % (36.0-47.0); MEAN CORPUSCULAR HEMOGLOBIN 31.5 pg (27.0-33.4); MEAN CORPUSCULAR HGB CONC 33.4 g/dL (32.0-36.0); MEAN CORPUSCULAR VOLUME 94 fl (80-97); PLATELET COUNT 141 10^3/uL (150-450); RED BLOOD COUNT 4.45 10^6/uL (3.72-5.28); RED CELL DISTRIBUTION WIDTH 13.1 % (11.5-14.0); WHITE BLOOD COUNT 4.1 10^3/uL (4.0-10.5)
[2018-10-13 09:54] LABS: INTERNATIONAL RATION (INR) 2.77; PROTHROMBIN TIME 29.8 SEC (11.4-15.4)
[2018-10-13 10:15] LABS: ANION GAP 8 (5-19); BLOOD UREA NITROGEN 19 mg/dL (7-20); CALCIUM 9.1 mg/dL (8.4-10.2); CARBON DIOXIDE 39 mmol/L (22-30); CHLORIDE 95 mmol/L (98-107); GLUCOSE 103 mg/dL (75-110); POTASSIUM 4.4 mmol/L (3.6-5.0); SODIUM 141.7 mmol/L (137-145)
== END ==
LOC: LAB 09:30
PROVIDERS: ATTEND Internal Medicine Cardiovascular Disease
DX: I48.2 Chronic atrial fibrillation (principal); R06.02 Shortness of breath
CPT/HCPCS: 36415; 80048; 83880; 85027; 85610

== ENCOUNTER → 2018-10-20 | Outpatient (CLI) | payer MEDICARE, MEDICAID ==
[2018-10-20 11:35] LABS: INTERNATIONAL RATION (INR) 2.85; PROTHROMBIN TIME 30.5 SEC (11.4-15.4)
== END ==
LOC: LAB 11:06
PROVIDERS: ATTEND Internal Medicine Cardiovascular Disease
DX: Z79.01 Long term (current) use of anticoagulants (principal); I48.2 Chronic atrial fibrillation
CPT/HCPCS: 36415; 85610

== ENCOUNTER → 2018-11-12 | Outpatient (CLI) | payer MEDICARE, MEDICAID ==
[2018-11-12 09:34] LABS: INTERNATIONAL RATION (INR) 1.85; PROTHROMBIN TIME 21.6 SEC (11.4-15.4)
== END ==
LOC: LAB 09:17
PROVIDERS: ATTEND Internal Medicine Cardiovascular Disease
DX: I48.2 Chronic atrial fibrillation (principal); Z79.01 Long term (current) use of anticoagulants
CPT/HCPCS: 36415; 85610

== ENCOUNTER → 2018-11-26 | Outpatient (CLI) | payer MEDICARE, MEDICAID ==
[2018-11-26 09:47] LABS: INTERNATIONAL RATION (INR) 1.67; PROTHROMBIN TIME 19.9 SEC (11.4-15.4)
== END ==
LOC: LAB 08:06
PROVIDERS: ATTEND Internal Medicine Cardiovascular Disease
DX: I48.2 Chronic atrial fibrillation (principal); Z79.01 Long term (current) use of anticoagulants
CPT/HCPCS: 36415; 85610

== ENCOUNTER → 2018-12-05 | Outpatient (CLI) | payer MEDICARE, MEDICAID ==
[2018-12-05 09:26] LABS: INTERNATIONAL RATION (INR) 3.48; PROTHROMBIN TIME 35.8 SEC (11.4-15.4)
== END ==
LOC: LAB 08:46
PROVIDERS: ATTEND Internal Medicine Cardiovascular Disease
DX: I48.2 Chronic atrial fibrillation (principal); Z79.01 Long term (current) use of anticoagulants
CPT/HCPCS: 36415; 85610

== ENCOUNTER → 2018-12-17 | Outpatient (CLI) | payer MEDICARE, MEDICAID ==
[2018-12-17 08:42] LABS: INTERNATIONAL RATION (INR) 2.12; PROTHROMBIN TIME 24.1 SEC (11.4-15.4)
[2018-12-17 08:58] LABS: ALBUMIN 4.2 g/dL (3.5-5.0); ALKALINE PHOSPHATASE 95 U/L (38-126); ANION GAP 8 (5-19); ASPARTATE AMINO TRANSFERASE 34 U/L (14-36); BILIRUBIN,DIRECT 0.2 mg/dL (0.0-0.4); BILIRUBIN,TOTAL 0.5 mg/dL (0.2-1.3); BLOOD UREA NITROGEN 17 mg/dL (7-20); CALCIUM 9.2 mg/dL (8.4-10.2); CARBON DIOXIDE 37 mmol/L (22-30); CHLORIDE 96 mmol/L (98-107); CHOLESTEROL 135.08 mg/dL (0-200); GLUCOSE 94 mg/dL (75-110); POTASSIUM 4.3 mmol/L (3.6-5.0); TOTAL PROTEIN 6.8 g/dL (6.3-8.2); TRIGLYCERIDES 78 mg/dL (<150)
[2018-12-17 09:09] LABS: DIRECT LDL 74 mg/dL (<100)
== END ==
LOC: LAB 08:21
PROVIDERS: ATTEND Internal Medicine Cardiovascular Disease
DX: E78.00 Pure hypercholesterolemia, unspecified (principal); I10 Essential (primary) hypertension; I48.2 Chronic atrial fibrillation; Z79.01 Long term (current) use of anticoagulants; Z79.899 Other long term (current) drug therapy
CPT/HCPCS: 36415; 80048; 80061; 80076; 85610

== ENCOUNTER → 2019-01-14 | Outpatient (CLI) | payer MEDICARE, MEDICAID ==
[2019-01-14 11:28] LABS: INTERNATIONAL RATION (INR) 2.19; PROTHROMBIN TIME 24.7 SEC (11.4-15.4)
== END ==
LOC: LAB 11:07
PROVIDERS: ATTEND Internal Medicine Cardiovascular Disease
DX: I48.20 Chronic atrial fibrillation, unspecified (principal); Z79.01 Long term (current) use of anticoagulants
CPT/HCPCS: 36415; 85610

== ENCOUNTER → 2019-02-02 | Outpatient (CLI) | payer MEDICARE, MEDICAID ==
[2019-02-02 10:55] LABS: HEMATOCRIT 42.5 % (36.0-47.0); HEMOGLOBIN 14.1 g/dL (12.0-15.5); MEAN CORPUSCULAR HEMOGLOBIN 31.1 pg (27.0-33.4); MEAN CORPUSCULAR HGB CONC 33.1 g/dL (32.0-36.0); MEAN CORPUSCULAR VOLUME 94 fl (80-97); PLATELET COUNT 147 10^3/uL (150-450); RED BLOOD COUNT 4.54 10^6/uL (3.72-5.28); RED CELL DISTRIBUTION WIDTH 13.3 % (11.5-14.0)
[2019-02-02 11:15] LABS: ALKALINE PHOSPHATASE 100 U/L (38-126); ANION GAP 6 (5-19); ASPARTATE AMINO TRANSFERASE 32 U/L (14-36); BILIRUBIN,DIRECT 0.1 mg/dL (0.0-0.4); BILIRUBIN,TOTAL 0.6 mg/dL (0.2-1.3); BLOOD UREA NITROGEN 17 mg/dL (7-20); CALCIUM 9.2 mg/dL (8.4-10.2); CARBON DIOXIDE 39 mmol/L (22-30); CHLORIDE 94 mmol/L (98-107); GLUCOSE 96 mg/dL (75-110); POTASSIUM 3.9 mmol/L (3.6-5.0); TOTAL PROTEIN 6.9 g/dL (6.3-8.2); TRIGLYCERIDES 98 mg/dL (<150)
[2019-02-02 11:16] LABS: PROTHROMBIN TIME 24.8 SEC (11.4-15.4)
[2019-02-02 11:26] LABS: DIRECT LDL 77 mg/dL (<100)
== END ==
LOC: LAB 10:34
PROVIDERS: ATTEND Internal Medicine Cardiovascular Disease
DX: I48.20 Chronic atrial fibrillation, unspecified (principal); Z79.01 Long term (current) use of anticoagulants; I10 Essential (primary) hypertension; Z79.899 Other long term (current) drug therapy
CPT/HCPCS: 36415; 80048; 80061; 80076; 83735; 85027; 85610

== ENCOUNTER → 2019-02-16 | Outpatient (CLI) | payer MEDICARE, MEDICAID ==
[2019-02-16 10:32] LABS: INTERNATIONAL RATION (INR) 3.53; PROTHROMBIN TIME 36.2 SEC (11.4-15.4)
== END ==
LOC: LAB 10:00
PROVIDERS: ATTEND Internal Medicine Cardiovascular Disease
DX: I48.20 Chronic atrial fibrillation, unspecified (principal); Z79.01 Long term (current) use of anticoagulants
CPT/HCPCS: 36415; 85610

== ENCOUNTER → 2019-03-04 | Outpatient (CLI) | payer MEDICARE, MEDICAID ==
[2019-03-04 11:08] LABS: INTERNATIONAL RATION (INR) 1.67; PROTHROMBIN TIME 19.9 SEC (11.4-15.4)
== END ==
LOC: LAB 10:34
PROVIDERS: ATTEND Internal Medicine Cardiovascular Disease
DX: I48.20 Chronic atrial fibrillation, unspecified (principal); Z79.01 Long term (current) use of anticoagulants
CPT/HCPCS: 36415; 85610

== ENCOUNTER → 2019-03-16 | Outpatient (CLI) | payer MEDICARE, MEDICAID ==
[2019-03-16 09:43] LABS: INTERNATIONAL RATION (INR) 2.04; PROTHROMBIN TIME 23.4 SEC (11.4-15.4)
[2019-03-16 10:00] LABS: ANION GAP 6 (5-19); BLOOD UREA NITROGEN 18 mg/dL (7-20); CALCIUM 9.6 mg/dL (8.4-10.2); CARBON DIOXIDE 39 mmol/L (22-30); CHLORIDE 96 mmol/L (98-107); GLUCOSE 102 mg/dL (75-110)
== END ==
LOC: LAB 09:19
PROVIDERS: ATTEND Internal Medicine Cardiovascular Disease
DX: I10 Essential (primary) hypertension (principal); R06.02 Shortness of breath; I48.20 Chronic atrial fibrillation, unspecified; Z79.01 Long term (current) use of anticoagulants; Z79.899 Other long term (current) drug therapy
CPT/HCPCS: 36415; 80048; 83880; 85610

== ENCOUNTER → 2019-05-20 | Outpatient (CLI) | payer MEDICARE, MEDICAID ==
[2019-05-20 10:26] LABS: HEMATOCRIT 34.9 % (36.0-47.0); HEMOGLOBIN 11.5 g/dL (12.0-15.5); MEAN CORPUSCULAR HEMOGLOBIN 31.2 pg (27.0-33.4); MEAN CORPUSCULAR HGB CONC 32.9 g/dL (32.0-36.0); MEAN CORPUSCULAR VOLUME 95 fl (80-97); PLATELET COUNT 342 10^3/uL (150-450); RED BLOOD COUNT 3.69 10^6/uL (3.72-5.28); RED CELL DISTRIBUTION WIDTH 15.5 % (11.5-14.0); WHITE BLOOD COUNT 13.5 10^3/uL (4.0-10.5)
[2019-05-20 10:29] LABS: INTERNATIONAL RATION (INR) 3.37; PROTHROMBIN TIME 34.9 SEC (11.4-15.4)
[2019-05-20 10:59] LABS: ABSOLUTE MONOCYTES # (MANUAL) 1.6 10^3/uL (0.1-1.4); BAND NEUTROPHILS % (MANUAL) 1 % (3-5); BASOPHILS % (MANUAL) 0 % (0-2); EOSINOPHILS % (MANUAL) 0 % (0-6); LYMPHOCYTES % (MANUAL) 0 % (13-45); MONOCYTES % (MANUAL) 12 % (3-13); SEGMENTED NEUTROPHILS % (MAN) 87 % (42-78); TOTAL CELLS COUNTED 100
[2019-05-20 11:00] LABS: ANISOCYTOSIS SLIGHT; POLYCHROMASIA SLIGHT
[2019-05-20 11:01] LABS: PLATELET COMMENT ADEQUATE
[2019-05-20 13:17] LABS: ALBUMIN 3.6 g/dL (3.5-5.0); ALKALINE PHOSPHATASE 124 U/L (38-126); ANION GAP 11 (5-19); ASPARTATE AMINO TRANSFERASE 42 U/L (14-36); BILIRUBIN,DIRECT 0.1 mg/dL (0.0-0.4); BILIRUBIN,TOTAL 0.7 mg/dL (0.2-1.3); BLOOD UREA NITROGEN 20 mg/dL (7-20); CARBON DIOXIDE 35 mmol/L (22-30); CHLORIDE 90 mmol/L (98-107); GLUCOSE 132 mg/dL (75-110); POTASSIUM 3.7 mmol/L (3.6-5.0); TOTAL PROTEIN 6.6 g/dL (6.3-8.2)
== END ==
LOC: LAB 09:40
PROVIDERS: ATTEND Internal Medicine Cardiovascular Disease
DX: I48.91 Unspecified atrial fibrillation (principal); J41.1 Mucopurulent chronic bronchitis; R25.1 Tremor, unspecified; R60.0 Localized edema; Z79.01 Long term (current) use of anticoagulants
CPT/HCPCS: 36415; 80053; 85025; 85610

== ENCOUNTER → 2019-06-02 | Outpatient (CLI) | payer MEDICARE, MEDICAID ==
[2019-06-02 10:59] LABS: BLOOD UREA NITROGEN 13 mg/dL (7-20); CALCIUM 8.6 mg/dL (8.4-10.2); CHLORIDE 90 mmol/L (98-107); GLUCOSE 112 mg/dL (75-110); POTASSIUM 3.7 mmol/L (3.6-5.0)
[2019-06-02 11:13] LABS: ANION GAP 7 (5-19)
[2019-06-02 11:29] LABS: INTERNATIONAL RATION (INR) 5.43
[2019-06-02 11:31] LABS: PROTHROMBIN TIME 51.1 SEC (11.4-15.4)
[2019-06-02 11:34] LABS: CARBON DIOXIDE 41 mmol/L (22-30)
== END ==
LOC: LAB 09:44
PROVIDERS: ATTEND Internal Medicine Cardiovascular Disease
DX: I48.20 Chronic atrial fibrillation, unspecified (principal); Z79.01 Long term (current) use of anticoagulants; Z79.899 Other long term (current) drug therapy
CPT/HCPCS: 36415; 80048; 85610

== ENCOUNTER → 2019-06-02 | Outpatient (CLI) | payer MEDICARE, MEDICAID ==
--- NOTE | 2019-06-02 17:00 | RADIOLOGY REPORT (SQ) ---
EXAM DESCRIPTION: CHEST 2 VIEWS COMPLETED DATE/TIME: 06/02/2019 1:41 pm REASON FOR STUDY: J18.9 PNEUMONIA, UNSPECIFIED ORGANISM J18.9 PNEUMONIA, UNSPECIFIED ORGANISM COMPARISON: Chest x-ray from [facility] dated 05/20/2019. NUMBER OF VIEWS: Two view. TECHNIQUE: Frontal and lateral radiographic views of the chest acquired. LIMITATIONS: None. FINDINGS: LUNGS AND PLEURA: Chronic parenchymal scarring. No infiltrates, masses or pneumothorax. N o pleural effusion. Attenuated blood vessels and flattened fatou-diaphragms. MEDIASTINUM AND HILAR STRUCTURES: No masses. No contour abnormalities. HEART AND VASCULAR STRUCTURES: Heart normal in size and contour. No evidence for failure. BONES: No acute findings. HARDWARE: Sternotomy wires and prosthetic valve. OTHER: No other significant finding. IMPRESSION: COPD. CHRONIC SCARRING. NO ACUTE RADIOGRAPHIC FINDING IN THE CHEST. TECHNICAL DOCUMENTATION: JOB ID: [id number] [employer]- All Rights Reserved Reading location - IP/workstation name: [email or web address]
== END ==
LOC: RAD 12:57
PROVIDERS: ATTEND Internal Medicine Cardiovascular Disease
DX: J18.9 Pneumonia, unspecified organism (principal)
CPT/HCPCS: 71046

== ENCOUNTER 2019-06-05 00:53 | Emergency (ER) | payer MEDICARE, MEDICAID ==
--- NOTE | 2019-06-05 04:15 | ER Document Report ---
ED General - General Chief Complaint: Skin Problem Stated Complaint: BLEEDING FROM BED SORES Time Seen by Provider: 06/05/19 03:26 Primary Care Provider: KRUPA VANCE PA-C [Primary Care Provider] - 06/05/19 Information source: Patient, Relative Notes: Patient presents due to bleeding to a decubitus ulcer to the sacral area. Patient's daughter states that her INR was recently supratherapeutic and she has been taken off of her Coumadin for the past 2 days. Patient denies any other abnormal bleeding or bruising. Patient states that she slid and scraped sacral area which was already being treated for decubitus wound. Patient without any fever. TRAVEL OUTSIDE OF THE [place] IN LAST 30 DAYS: No - HPI Onset: Just prior to arrival Onset/Duration: Worse Quality of pain: Achy Pain Level: 3 Associated symptoms: Other - Bleeding to sacral wound. denies: Fever Exacerbated by: Denies Relieved by: Denies Similar symptoms previously: No Recently seen / treated by doctor: Yes - Related Data Allergies/Adverse Reactions: JANUSZ Inhibitors [Janusz Inhibitors] Allergy (Verified 01/23/18 08:30) Rash ACEINHIBITORS [JANUSZ Inhibitors] Allergy (Verified 01/23/18 08:30) RASH fish derived [Fish derived] Allergy (Verified 01/23/18 08:30) RASH latex Allergy (Verified 01/23/18 08:30) NSAIDS (Non-Steroidal Anti-Inflamma [Nsaids] Allergy (Verified 01/23/18 08:30) RASH tramadol [Tramadol] Allergy (Verified 01/23/18 08:30) RASH Home Medications: coumadin. baclofen. Escitalopram. xtampza. Gabapentin. Ezetimibe. Lasix. atovastatin. Potassium Past Medical History - General Information source: Patient, Relative - Social History Smoking Status: Former Smoker Chew tobacco use (# tins/day): No Frequency of alcohol use: None Drug Abuse: None Lives with: Family Family History: CVA, DM Patient has suicidal ideation: No Patient has homicidal ideation: No - Past Medical History Cardiac Medical History: Reports: Hx Atrial Fibrillation, Hx Congestive Heart Failure, Hx Coronary Artery Disease, Hx Hypercholesterolemia, Hx Hypertension - MEDS Denies: Hx Heart Attack Pulmonary Medical History: Reports: Hx COPD Renal/ Medical History: Denies: Hx Peritoneal Dialysis Musculoskeletal Medical History: Reports Hx Arthritis Infectious Medical History: Reports: Hx MRSA. Denies: Hx Hepatitis Past Surgical History: Reports: Hx Cardiac Catheterization, Hx Cardiac Surgery, Hx Coronary Artery Bypass Graft, Hx Open Heart Surgery - CABG X2, VALVE REPLACEMENT - Immunizations Hx Diphtheria, Pertussis, Tetanus Vaccination: No Hx Pneumococcal Vaccination: 12/08/11 Review of Systems - Review of Systems Constitutional: No symptoms reported. denies: Fever EENT: No symptoms reported Cardiovascular: No symptoms reported. denies: Chest pain Respiratory: No symptoms reported. denies: Short of breath Gastrointestinal: No symptoms reported Genitourinary: No symptoms reported Musculoskeletal: No symptoms reported Skin: Other - Bleeding to sacral wound Hematologic/Lymphatic: No symptoms reported Neurological/Psychological: No symptoms reported Physical Exam - Vital signs Vitals: Temp Pulse Resp BP Pulse Ox 98.4 F 110 H 18 106/46 L 96 06/05/19 01:23 06/05/19 01:23 06/05/19 01:23 06/05/19 01:23 06/05/19 01:23 - General General appearance: Appears well, Alert In distress: None - HEENT Head: Normocephalic, Atraumatic Eyes: Normal Conjunctiva: Normal Nasal: Normal Mouth/Lips: Normal Mucous membranes: Normal Neck: Normal, Supple - Respiratory Respiratory status: No respiratory distress Chest status: Nontender Breath sounds: Nonproductive cough, Rhonchi Chest palpation: Normal - Cardiovascular Rhythm: Regular Heart sounds: S1 appreciated, S2 appreciated - Abdominal Inspection: Obese Distension: No distension Tenderness: Nontender - Back Back: Nontender, Scoliosis - Extremities General upper extremity: Normal inspection, Normal strength General lower extremity: Edema - bilat LE - Neurological Neuro grossly intact: Yes Clayton Coma Scale Eye Opening: Spontaneous Romero Coma Scale Verbal: Oriented Clayton Coma Scale Motor: Obeys Commands Clayton Coma Scale Total: 15 - Psychological Associated symptoms: Normal affect, Normal mood - Skin Skin Temperature: Warm Skin Moisture: Dry Skin irregularity: Decubitus ulcer - Bilateral buttocks, active bleeding to left buttock from small skin tear Course - Re-evaluation Re-evalutation: 06/05/19 06:00 Patient's bleeding stopped after application of Gelfoam dressing to the right buttock. RN to place Allevyn dressing to buttocks. Copy of patient's INR given to patient's daughter to discuss with her primary doctor. Consulted with Dr. Zhao regarding patient's diagnostic tests, no additional tests or treatment advised at this time. Agrees with discharge plan of care. Patient does have an elevated CO2 although has known COPD and her elevated CO2 is comparable to her test performed 3 days ago. - Vital Signs Vital signs: Temp Pulse Resp BP Pulse Ox 97.5 F 107 H 18 100/48 L 100 06/05/19 05:31 06/05/19 05:31 06/05/19 05:31 06/05/19 05:31 06/05/19 05:31 - Laboratory Result Diagrams: 06/05/19 04:58 06/05/19 04:58 Laboratory results interpreted by me: 06/05/19 06/05/19 06/05/19 04:58 04:58 04:58 RBC 3.39 L Hgb 10.4 L Hct 32.0 L RDW 15.4 H Lymph % (Auto) 7.6 L Seg Neutrophils % 79.5 H PT 40.7 H Potassium 3.5 L Chloride 88 L Carbon Dioxide 42 H* AST 38 H Total Protein 6.2 L Albumin 3.3 L Labs- Entire Visit 06/05/19 06/05/19 06/05/19 04:58 04:58 04:58 WBC 6.7 RBC 3.39 L Hgb 10.4 L Hct 32.0 L MCV 94 MCH 30.7 MCHC 32.5 RDW 15.4 H Plt Count 202 Lymph % (Auto) 7.6 L [place] % (Auto) 10.6 Eos % (Auto) 1.8 Baso % (Auto) 0.5 Absolute Neuts (auto) 5.3 Absolute Lymphs (auto) 0.5 Absolute Monos (auto) 0.7 Absolute Eos (auto) 0.1 Absolute Basos (auto) 0.0 Seg Neutrophils % 79.5 H PT 40.7 H INR 4.09 Sodium 137.6 Potassium 3.5 L Chloride 88 L Carbon Dioxide 42 H* Anion Gap 8 BUN 15 Creatinine 0.66 Est GFR ( Amer) > 60 Est GFR (MDRD) Non-Af > 60 Glucose 99 Calcium 8.9 Total Bilirubin 0.7 Direct Bilirubin 0.3 Neonat Total Bilirubin Not Reportable Neonat Direct Bilirubin Not Reportable Neonat Indirect Bili Not Reportable AST 38 H ALT 19 Alkaline Phosphatase 107 Total Protein 6.2 L Albumin 3.3 L Reviewed patient's outpatient lab work from this month Discharge - Discharge Clinical Impression: Decubitus skin ulcer Qualifiers: Pressure injury location: sacral region Pressure injury stage: unspecified pressure injury stage Qualified Code(s): L89.159 - Pressure ulcer of sacral region, unspecified stage Condition: Stable Disposition: HOME, SELF-CARE Instructions: Decubitus Ulcer ([facility]) Additional Instructions: Return immediately for any new or worsening symptoms Followup with your primary care provider, call today to make follow-up appointment Change positions frequently to avoid continued pressure to the sacrum Referrals: KRUPA VANCE PA-C [Primary Care Provider] - 06/05/19
[2019-06-05 05:08] LABS: ABSOLUTE EOSINOPHILS # (AUTO) 0.1 10^3/uL (0.0-0.6); ABSOLUTE LYMPHOCYTES (AUTO) 0.5 10^3/uL (0.5-4.7); ABSOLUTE MONOCYTES (AUTO) 0.7 10^3/uL (0.1-1.4); ABSOLUTE NEUT (AUTO) 5.3 10^3/uL (1.7-8.2); BASOPHILS % (AUTO) 0.5 % (0-2); EOSINOPHILS % (AUTO) 1.8 % (0-6); HEMOGLOBIN 10.4 g/dL (12.0-15.5); LYMPHOCYTES % (AUTO) 7.6 % (13-45); MEAN CORPUSCULAR HEMOGLOBIN 30.7 pg (27.0-33.4); MEAN CORPUSCULAR HGB CONC 32.5 g/dL (32.0-36.0); MEAN CORPUSCULAR VOLUME 94 fl (80-97); MONOCYTES % (AUTO) 10.6 % (3-13); PLATELET COUNT 202 10^3/uL (150-450); RED BLOOD COUNT 3.39 10^6/uL (3.72-5.28); RED CELL DISTRIBUTION WIDTH 15.4 % (11.5-14.0); SEGMENTED NEUTROPHILS % (AUTO) 79.5 % (42-78); TOTAL CELLS COUNTED % (AUTO) 100 %; WHITE BLOOD COUNT 6.7 10^3/uL (4.0-10.5)
[2019-06-05 05:14] LABS: INTERNATIONAL RATION (INR) 4.09; PROTHROMBIN TIME 40.7 SEC (11.4-15.4)
[2019-06-05 05:33] LABS: ALBUMIN 3.3 g/dL (3.5-5.0); ALKALINE PHOSPHATASE 107 U/L (38-126); ASPARTATE AMINO TRANSFERASE 38 U/L (14-36); BILIRUBIN,DIRECT 0.3 mg/dL (0.0-0.4); BILIRUBIN,TOTAL 0.7 mg/dL (0.2-1.3); BLOOD UREA NITROGEN 15 mg/dL (7-20); CALCIUM 8.9 mg/dL (8.4-10.2); CHLORIDE 88 mmol/L (98-107); GLUCOSE 99 mg/dL (75-110); POTASSIUM 3.5 mmol/L (3.6-5.0); TOTAL PROTEIN 6.2 g/dL (6.3-8.2)
[2019-06-05 05:44] LABS: ANION GAP 8 (5-19)
[2019-06-05 05:47] LABS: CARBON DIOXIDE 42 mmol/L (22-30)
[2019-06-05 06:40] VITALS: BP 123/69
== END 2019-06-05 06:41 | disposition home or self-care (01) ==
LOC: ER 00:53
DX: L89.159 Pressure ulcer of sacral region, unspecified stage (principal); I48.91 Unspecified atrial fibrillation; I50.9 Heart failure, unspecified; E78.00 Pure hypercholesterolemia, unspecified; I11.0 Hypertensive heart disease with heart failure; J44.9 Chronic obstructive pulmonary disease, unspecified; Z88.6 Allergy status to analgesic agent; Z91.040 Latex allergy status; Z86.14 Personal history of Methicillin resistant Staphylococcus aureus infection; Z95.1 Presence of aortocoronary bypass graft; Z95.2 Presence of prosthetic heart valve; E66.9 Obesity, unspecified
CPT/HCPCS: 36415; 80053; 85025; 85610; 99283

== ENCOUNTER → 2019-06-10 | Outpatient (CLI) | payer MEDICARE, MEDICAID ==
[2019-06-10 09:48] LABS: HEMATOCRIT 30.6 % (36.0-47.0); HEMOGLOBIN 10.1 g/dL (12.0-15.5); MEAN CORPUSCULAR HEMOGLOBIN 31.2 pg (27.0-33.4); MEAN CORPUSCULAR HGB CONC 33.1 g/dL (32.0-36.0); MEAN CORPUSCULAR VOLUME 94 fl (80-97); PLATELET COUNT 248 10^3/uL (150-450); RED BLOOD COUNT 3.24 10^6/uL (3.72-5.28); RED CELL DISTRIBUTION WIDTH 15.8 % (11.5-14.0); WHITE BLOOD COUNT 4.8 10^3/uL (4.0-10.5)
[2019-06-10 09:51] LABS: INTERNATIONAL RATION (INR) 2.51; PROTHROMBIN TIME 27.6 SEC (11.4-15.4)
[2019-06-10 10:11] LABS: BLOOD UREA NITROGEN 13 mg/dL (7-20); CALCIUM 8.9 mg/dL (8.4-10.2); CHLORIDE 86 mmol/L (98-107); GLUCOSE 101 mg/dL (75-110); POTASSIUM 3.3 mmol/L (3.6-5.0)
[2019-06-10 10:25] LABS: ANION GAP 10 (5-19)
[2019-06-10 10:36] LABS: CARBON DIOXIDE 42 mmol/L (22-30)
== END ==
LOC: LAB 09:22
PROVIDERS: ATTEND Internal Medicine Cardiovascular Disease
DX: D64.9 Anemia, unspecified (principal); R60.9 Edema, unspecified; I48.20 Chronic atrial fibrillation, unspecified; Z79.01 Long term (current) use of anticoagulants; Z79.899 Other long term (current) drug therapy
CPT/HCPCS: 36415; 80048; 82272; 85027; 85610

== ENCOUNTER 2019-06-16 09:44 | Inpatient (IN) | payer MEDICARE, MEDICAID ==
--- NOTE | 2019-06-16 10:03 | ER Document Report ---
ED Medical Screen (RME) - General Chief Complaint: Shortness Of Breath Stated Complaint: SHORTNESS OF BREATH Time Seen by Provider: 06/16/19 09:56 Primary Care Provider: KRUPA VANCE PA-C [Primary Care Provider] - Follow up as needed Mode of Arrival: Wheelchair Information source: Relative Notes: 74-year-old female presented to ED for dyspnea. Her O2 sats were 75% on 3 L. She has severe COPD. Family states she is been very confused for the last 3 days. She is extremely short of breath. When I have ordered BiPAP from the pit area. I have talked with Dr. Stone to and see the patient. I have greeted and performed a rapid initial assessment of this patient. A comprehensive ED assessment and evaluation of the patient, analysis of test results and completion of medical decision making process will be conducted by an additional ED providers. TRAVEL OUTSIDE OF THE [place] IN LAST 30 DAYS: No - Related Data Allergies/Adverse Reactions: JANUSZ Inhibitors [Janusz Inhibitors] Allergy (Verified 06/16/19 09:57) Rash ACEINHIBITORS [JANUSZ Inhibitors] Allergy (Verified 06/16/19 09:57) RASH fish derived [Fish derived] Allergy (Verified 06/16/19 09:57) RASH latex Allergy (Verified 06/16/19 09:57) NSAIDS (Non-Steroidal Anti-Inflamma [Nsaids] Allergy (Verified 06/16/19 09:57) RASH tramadol [Tramadol] Allergy (Verified 06/16/19 09:57) RASH Past Medical History - Past Medical History Cardiac Medical History: Reports: Hx Atrial Fibrillation, Hx Congestive Heart Failure, Hx Coronary Artery Disease, Hx Hypercholesterolemia, Hx Hypertension - MEDS Denies: Hx Heart Attack Pulmonary Medical History: Reports: Hx COPD Denies: Hx Asthma, Hx Bronchitis, Hx Pneumonia Neurological Medical History: Denies: Hx Cerebrovascular Accident, Hx Seizures Renal/ Medical History: Denies: Hx Peritoneal Dialysis GI Medical History: Denies: Hx Hepatitis, Hx Hiatal Hernia, Hx Ulcer Musculoskeltal Medical History: Reports Hx Arthritis Infectious Medical History: Reports: Hx MRSA. Denies: Hx Hepatitis Past Surgical History: Reports: Hx Cardiac Catheterization, Hx Cardiac Surgery, Hx Coronary Artery Bypass Graft, Hx Open Heart Surgery - CABG X2, VALVE REPLACEMENT. Denies: Hx Hysterectomy, Hx Mastectomy, Hx Pacemaker - Immunizations Hx Diphtheria, Pertussis, Tetanus Vaccination: No Physical Exam - Vital signs Vitals: Pulse Resp BP Pulse Ox 116 H 22 H 117/71 75 L 06/16/19 09:48 06/16/19 09:48 06/16/19 09:48 06/16/19 09:48 Course - Vital Signs Vital signs: Temp Pulse Resp BP Pulse Ox 116 H 22 H 117/71 75 L 06/16/19 09:48 06/16/19 09:48 06/16/19 09:48 06/16/19 09:48 Doctor's Discharge - Discharge Referrals: KRUPA VANCE PA-C [Primary Care Provider] - Follow up as needed
[2019-06-16 10:38] LABS: HEMATOCRIT 30.9 % (36.0-47.0); HEMOGLOBIN 10.2 g/dL (12.0-15.5); MEAN CORPUSCULAR HEMOGLOBIN 30.9 pg (27.0-33.4); MEAN CORPUSCULAR HGB CONC 33.1 g/dL (32.0-36.0); MEAN CORPUSCULAR VOLUME 94 fl (80-97); PLATELET COUNT 272 10^3/uL (150-450); RED BLOOD COUNT 3.31 10^6/uL (3.72-5.28); RED CELL DISTRIBUTION WIDTH 15.5 % (11.5-14.0); WHITE BLOOD COUNT 6.2 10^3/uL (4.0-10.5)
[2019-06-16] MEDS ORDERED: METOPROLOL TARTRATE PF/INJ 5 MG/5 ML SDV IV ONE (10:47)
[2019-06-16 10:49] LABS: ALBUMIN 3.8 g/dL (3.5-5.0); ALKALINE PHOSPHATASE 130 U/L (38-126); ASPARTATE AMINO TRANSFERASE 87 U/L (14-36); BILIRUBIN,DIRECT 0.4 mg/dL (0.0-0.4); BILIRUBIN,TOTAL 1.1 mg/dL (0.2-1.3); BLOOD UREA NITROGEN 17 mg/dL (7-20); CALCIUM 9.1 mg/dL (8.4-10.2); CHLORIDE 84 mmol/L (98-107); CREATINE KINASE 50 U/L (30-135); GLUCOSE 117 mg/dL (75-110); POTASSIUM 3.9 mmol/L (3.6-5.0); TOTAL PROTEIN 6.9 g/dL (6.3-8.2)
[2019-06-16 11:00] LABS: ANION GAP 12 (5-19); CARBON DIOXIDE 41 mmol/L (22-30)
--- NOTE | 2019-06-16 11:00 | RADIOLOGY REPORT (SQ) ---
EXAM DESCRIPTION: CHEST SINGLE VIEW COMPLETED DATE/TIME: 06/16/2019 10:48 am REASON FOR STUDY: dyspnea COMPARISON: Chest films 10/10/2017, 01/07/2018, 06/02/2019 EXAM PARAMETERS: NUMBER OF VIEWS: One view. TECHNIQUE: Single frontal radiographic view of the chest acquired. RADIATION DOSE: NA LIMITATIONS: None. FINDINGS: LUNGS AND PLEURA: New trace left pleural effusion. Padmini lines at both lung bases from m ild interstitial edema. Mild pulmonary vascular congestion. No fluffy alveolar infiltrates worrisome for alveolar edema or pneumonia. No pneumothorax. MEDIASTINUM AND HILAR STRUCTURES: No masses. Contour normal. HEART AND VASCULAR STRUCTURES: Old sternotomy and aortic valve replacement, mild cardiomegaly BONES: No acute findings. HARDWARE: Old sternotomy and aortic valve replacement OTHER: No other significant finding. IMPRESSION: Fluid overload or congestive failure TECHNICAL DOCUMENTATION: JOB ID: [id number] 2010 [employer]- All Rights Reserved Reading location - IP/workstation name: [email or web address]
[2019-06-16 11:01] LABS: ABSOLUTE LYMPHOCYTES# (MANUAL) 0.2 10^3/uL (0.5-4.7); ABSOLUTE MONOCYTES # (MANUAL) 0.6 10^3/uL (0.1-1.4); BAND NEUTROPHILS % (MANUAL) 1 % (3-5); BASOPHILS % (MANUAL) 0 % (0-2); EOSINOPHILS % (MANUAL) 0 % (0-6); LYMPHOCYTES % (MANUAL) 4 % (13-45); MONOCYTES % (MANUAL) 10 % (3-13); SEGMENTED NEUTROPHILS % (MAN) 85 % (42-78); TOTAL CELLS COUNTED 100
[2019-06-16 11:04] LABS: TROPONIN I 0.168 ng/mL
[2019-06-16 11:08] LABS: ANISOCYTOSIS SLIGHT
[2019-06-16 11:09] LABS: OVALOCYTES SLIGHT; PLATELET COMMENT ADEQUATE; TEAR DROP CELLS SLIGHT
[2019-06-16] MEDS ORDERED: FUROSEMIDE INJ/PF 40 MG/4 ML SDV IV ONE (11:18)
[2019-06-16] MEDS ORDERED: ASPIRIN 81 MG TABLET, CHEWABLE PO ONE (11:18)
[2019-06-16] MEDS ORDERED: ESMOLOL HCL INJ/PF 100 MG/10 ML SDV IV ONE (11:19)
[2019-06-16] MEDS ORDERED: ESMOLOL HCL/SOD CL 2,500 MG/250 ML RTUINJ IV PRN (11:19)
[2019-06-16 11:39] LABS: INTERNATIONAL RATION (INR) 6.43; PROTHROMBIN TIME 58.5 SEC (11.4-15.4)
--- NOTE | 2019-06-16 11:41 | EKG REPORT ---
SEVERITY:- ABNORMAL ECG - ECTOPIC ATRIAL TACHYCARDIA VS SINUS TACHYCARDIA NONSPECIFIC IVCD WITH LAD LVH WITH SECONDARY REPOLARIZATION ABNORMALITY : Confirmed by: River Alfonso 16-Jun-2019 11:41:35
[2019-06-16 12:14] LABS: APPEARANCE,URINE CLEAR; BILIRUBIN,URINE NEGATIVE (NEGATIVE); COLOR,URINE YELLOW; GLUCOSE, URINE NEGATIVE (NEGATIVE); KETONES,URINE NEGATIVE (NEGATIVE); LEUKOCYTE ESTERASE,URINE TRACE (NEGATIVE); NITRITE,URINE POSITIVE (NEGATIVE); PROTEIN,URINE NEGATIVE (NEGATIVE); UROBILINOGEN,URINE NEGATIVE mg/dL (<2.0)
[2019-06-16] MEDS ORDERED: CEFTRIAXONE 1 GM/D5W RTU 1 GM/50 ML RTUPB IV ONE (12:44)
--- NOTE | 2019-06-16 12:47 | ER Document Report ---
ED General - General Chief Complaint: Shortness Of Breath Stated Complaint: SHORTNESS OF BREATH Time Seen by Provider: 06/16/19 09:56 Mode of Arrival: Wheelchair TRAVEL OUTSIDE OF THE [place] IN LAST 30 DAYS: No - HPI Notes: This is a 74-year-old female who presents to the emergency department for evaluation of shortness of breath. Is been ongoing for the last several days. She has had a cough is been minimally productive. No fevers or chills. No nausea or vomiting. She has upper back pain which she states is not any different than her baseline. She has a history of scoliosis. She states she been taking her medications as prescribed. Her shortness of breath is worsened by laying flat. She has been waking up short of breath in the middle of the night. Patient's [id number] notes that she was on amiodarone, this was recently discontinued at the end of last month. Patient has chronic lower extremity edema, that per family may be slightly worse. Her weights have been stable. - Related Data Allergies/Adverse Reactions: JANUSZ Inhibitors [Janusz Inhibitors] Allergy (Verified 06/16/19 10:31) Rash ACEINHIBITORS [JANUSZ Inhibitors] Allergy (Verified 06/16/19 10:31) RASH fish derived [Fish derived] Allergy (Verified 06/16/19 10:31) RASH latex Allergy (Verified 06/16/19 10:31) NSAIDS (Non-Steroidal Anti-Inflamma [Nsaids] Allergy (Verified 06/16/19 10:31) RASH tramadol [Tramadol] Allergy (Verified 06/16/19 10:31) RASH Home Medications: Patient unsure of all medications, last list reviewed Past Medical History - General Information source: Patient, Relative - Social History Smoking Status: Former Smoker Family History: CVA, DM Patient has suicidal ideation: No Patient has homicidal ideation: No - Past Medical History Cardiac Medical History: Reports: Hx Atrial Fibrillation, Hx Congestive Heart Failure, Hx Coronary Artery Disease, Hx Hypercholesterolemia, Hx Hypertension - MEDS Denies: Hx Heart Attack Pulmonary Medical History: Reports: Hx COPD Denies: Hx Asthma, Hx Bronchitis, Hx Pneumonia Neurological Medical History: Denies: Hx Cerebrovascular Accident, Hx Seizures Renal/ Medical History: Denies: Hx Peritoneal Dialysis GI Medical History: Denies: Hx Hepatitis, Hx Hiatal Hernia, Hx Ulcer Musculoskeletal Medical History: Reports Hx Arthritis Infectious Medical History: Reports: Hx MRSA. Denies: Hx Hepatitis Past Surgical History: Reports: Hx Cardiac Catheterization, Hx Cardiac Surgery, Hx Coronary Artery Bypass Graft, Hx Open Heart Surgery - CABG X2, VALVE REPLACEMENT. Denies: Hx Hysterectomy, Hx Mastectomy, Hx Pacemaker - Immunizations Hx Diphtheria, Pertussis, Tetanus Vaccination: No Hx Pneumococcal Vaccination: 12/08/11 Review of Systems - Review of Systems Constitutional: Weakness Cardiovascular: See HPI Respiratory: See HPI Genitourinary: Frequency -: Yes All other systems reviewed and negative Physical Exam - Vital signs Vitals: Pulse Resp BP Pulse Ox 116 H 22 H 117/71 75 L 06/16/19 09:48 06/16/19 09:48 06/16/19 09:48 06/16/19 09:48 - Notes Notes: This is a 74-year-old female who appears older than her stated age in a mild amount of stress. She is mildly tachypneic, but no other significant signs of increased work of breathing. Vital signs reviewed, please refer to chart. Head is normocephalic, atraumatic. Pupils equal round, reactive to light. Neck is supple without meningismus. Heart is irregularly irregular. Lungs reveal rales to the apices bilaterally. Abdomen is soft, nontender, normoactive bowel sounds throughout. Extremities without cyanosis, clubbing. She does have 3+ pitting edema to bilateral lower extremities, left greater than right. Posterior calves are nontender. Peripheral pulses are equal. Skin is warm and dry. Patient is awake, alert, neurological exam is nonfocal. Course - Re-evaluation Re-evalutation: 06/16/19 12:46 Patient presents emergency department for evaluation. She was initially placed on BiPAP. She laboratory investigations as ordered. Chest x-ray showed findings consistent with congestive heart failure, she has interstitial edema as well as pulmonary Antwan vascular congestion. She was given IV Lasix. Her heart rate remained between 110 and 125. As she was in heart failure and Cardizem is not preferred, decision was made to advance with Brevibloc. She was given at push dose and then started on a drip. She was further given aspirin department her elevated troponin, but I suspect this is secondary leak from the heart failure. Patient is feeling significantly improved, although she does continue to mildly desaturate if she lays flat. Urinalysis reveals a nitrate positive specimen. This was sent for culture and she is given IV Rocephin. I spoke with Dr. Beth, then Daisy Thompson, R[place]. The patient will be admitted for further care. Protocol at this facility does not allow Brevibloc to be titrated anywhere but the ICU. The patient is stable, and her heart rate has responded. I do not think that this medication needs to be continued at this time, there is room to come up on her oral metoprolol. I discussed this with Daisy Thompson as well. The patient will be admitted to telemetry. - Vital Signs Vital signs: Temp Pulse Resp BP Pulse Ox 98 F 110 H 19 116/57 L 100 06/16/19 17:36 06/16/19 17:36 06/16/19 17:36 06/16/19 17:36 06/16/19 17:36 - Laboratory Result Diagrams: 06/16/19 15:52 06/16/19 10:15 Laboratory results interpreted by me: 06/16/19 06/16/19 06/16/19 10:15 10:15 10:15 RBC 3.31 L Hgb 10.2 L Hct 30.9 L RDW 15.5 H Seg Neuts % (Manual) 85 H Band Neutrophils % 1 L Lymphocytes % (Manual) 4 L Abs Lymphs (Manual) 0.2 L PT INR Chloride 84 L Carbon Dioxide 41 H* Glucose 117 H AST 87 H ALT 48 H Alkaline Phosphatase 130 H NT-Pro-B Natriuret Pep 3780 H Urine Blood Urine Nitrite Ur Leukocyte Esterase 06/16/19 06/16/19 10:52 12:00 RBC Hgb Hct RDW Seg Neuts % (Manual) Band Neutrophils % Lymphocytes % (Manual) Abs Lymphs (Manual) PT 58.5 H* D INR 6.43 H* Chloride Carbon Dioxide Glucose AST ALT Alkaline Phosphatase NT-Pro-B Natriuret Pep Urine Blood LARGE H Urine Nitrite POSITIVE H Ur Leukocyte Esterase TRACE H - Diagnostic Test Radiology reviewed: Image reviewed, Reports reviewed Radiology results interpreted by me: 06/16/19 12:48 Chest X-Ray 06/16/19 10:08 IMPRESSION: Fluid overload or congestive failure - EKG Interpretation by Me Additional EKG results interpreted by me: 06/16/19 12:48 Atrial fibrillation with a rate of 115 bpm. Left axis deviation. IVCD. Nonspecific ST changes but no acute changes concerning for infarction. This was a change when compared to prior study of September 07, 2014. Critical Care Note - Critical Care Note Total time excluding time spent on procedures (mins): 40 Discharge - Discharge Clinical Impression: Rapid atrial fibrillation, Urinary tract infection Congestive heart failure Qualifiers: Heart failure type: unspecified Heart failure chronicity: acute on chronic Qualified Code(s): I50.9 - Heart failure, unspecified Condition: Stable Disposition: ADMITTED INPATIENT Admitting Provider: Ignacia (Hospitalist) - Daisy Thompson NP Unit Admitted: Telemetry
[2019-06-16] MEDS ORDERED: ACETAMINOPHEN 325 MG TABLET PO PRN (14:08)
[2019-06-16] MEDS ORDERED: MAG HYDROX/AL HYDROX/SIMETH SUSP 30 ML UDCUP PO PRN (14:08)
[2019-06-16] MEDS ORDERED: MAGNESIUM HYDROXIDE SUSP 30 ML UDCUP PO PRN (14:08)
[2019-06-16] MEDS ORDERED: ONDANSETRON HCL INJ/PF 4 MG/2 ML SDV IV PRN (14:08)
[2019-06-16] MEDS ORDERED: BACLOFEN 10 MG TABLET PO PRN (14:14)
[2019-06-16] MEDS ORDERED: PHYTONADIONE 5 MG TABLET PO ONE (14:53)
--- NOTE | 2019-06-16 15:05 | PDOC H&P ---
History of Present Illness Admission Date/PCP: KRUPA VANCE PA-C Patient complains of: Shortness of breath History of Present Illness: SOFIA MISTRY is a 74 year old female with a past medical history of atrial fibrillation, chronically anticoagulated on Coumadin, CAD, CHF, chronic respiratory failure; on home O2, and obesity who presented to the emergency [facility] today with a complaint of sudden onset shortness of breath. Patient was recently discharged from [facility] where she received treatment for urinary tract infection and atrial fibrillation RVR. She was briefly placed on amiodarone but was instructed to discontinue by her primary textile converter, Dr. Camp. She has been off amiodarone for 2 weeks and has had a persistently elevated heart rate since that time. Further evaluation in the emergency department revealed atrial fibrillation RVR with a heart rate 1 15-1 20, labile blood pressures, and initial hypoxia of 70% on her baseline oxygen requirement. Laboratory evaluation revealed baseline anemia with a hemoglobin of 10.2, supratherapeutic INR at 6.43, elevated bicarb of 41, baseline proBNP of 3000, troponin of 0.168 (likely secondary to demand ischemia, and urinalysis suggestive of UTI. Chest x-ray showed vascular congestion. She was provided IV furosemide, Rocephin, and placed on BiPAP. She was briefly placed on an esmolol drip for A. fib RVR, however, this was discontinued as it made minimal difference to her heart rate. She is referred to the hospitalist service for admission and management of the above-stated complaints and findings. Past Medical History Cardiac Medical History: Reports: Atrial Fibrillation, Congestive Heart Failure, Coronary Artery Disease, Hyperlipidema, Hypertension Denies: Myocardial Infarction Pulmonary Medical History: Reports: Chronic Obstructive Pulmonary Disease (COPD), Respiratory Failure Denies: Pneumonia Neurological Medical History: Denies: Ischemic CVA, Seizures Endocrine Medical History: Reports: Obesity Denies: Hypothyroidism Renal/ Medical History: Reports: None Malignancy Medical History: Reports: None GI Medical History: Denies: Hepatitis, Hiatal Hernia Musculoskeltal Medical History: Reports: Arthritis Psychiatric Medical History: Reports: None Hematology: Reports: Anemia Denies: Sickle Cell Disease Infectious Medical History: Reports: Methicillin-Resistant Staph Aureus Past Surgical History Past Surgical History: Reports: Cardiac Catheterization, Coronary Artery Bypass Graft, Valve Replacement Denies: Amputation, Hysterectomy, Mastectomy, Pacemaker Social History Information Source: Patient, Relative Lives with: Family Smoking Status: Former Smoker Electronic Cigarette use?: No Frequency of Alcohol Use: None Hx Recreational Drug Use: No Hx Prescription Drug Abuse: No Family History Family History: CVA, DM Parental Family History Reviewed: Yes Children Family History Reviewed: Yes Sibling(s) Family History Reviewed.: Yes Medication/Allergy Home Medications: Aspirin [Ecotrin 81 mg EC Tablet] 81 mg PO QHS 01/08/12 Atorvastatin Calcium [Lipitor 40 mg Tablet] 40 mg PO QHS 01/08/12 Baclofen [Baclofen 10 mg Tablet] 10 mg PO Q8HP PRN 01/08/12 Gabapentin 800 mg PO QIDP PRN 01/08/12 Ezetimibe [Zetia 10 mg Tablet] 10 mg PO DAILY 02/06/13 Furosemide [Lasix 80 mg Tablet] 80 mg PO WESA@1000 02/06/13 Potassium Chloride [Klor-Con] 10 meq PO DAILY 02/06/13 Cholecalciferol (Vitamin D3) [Vitamin D3 1000 Unit Tablet] 5,000 unit PO DAILY 06/16/19 Escitalopram Oxalate [Lexapro 10 mg Tablet] 10 mg PO DAILY 06/16/19 Furosemide [Lasix 40 mg Tablet] 40 mg PO SUMOTUTHFR@1000 06/16/19 Guaifenesin 400 mg PO Q4HP PRN 06/16/19 Oxycodone HCl/Acetaminophen [Oxycodone-Acetaminophen 10-325] 1 each PO TIDP PRN 06/16/19 Oxycodone Myristate [Xtampza ER] 9 mg PO BID 06/16/19 Warfarin Sodium [Coumadin 1 mg Tablet] 1 mg PO DAILY 06/16/19 Allergies/Adverse Reactions: JANUSZ Inhibitors [Janusz Inhibitors] Allergy (Verified 06/16/19 10:31) Rash ACEINHIBITORS [JANUSZ Inhibitors] Allergy (Verified 06/16/19 10:31) RASH fish derived [Fish derived] Allergy (Verified 06/16/19 10:31) RASH latex Allergy (Verified 06/16/19 10:31) NSAIDS (Non-Steroidal Anti-Inflamma [Nsaids] Allergy (Verified 06/16/19 10:31) RASH tramadol [Tramadol] Allergy (Verified 06/16/19 10:31) RASH Review of Systems Constitutional: PRESENT: fatigue, weakness. ABSENT: chills, fever(s), headache(s), weight gain, weight loss Eyes: ABSENT: visual disturbances Ears: ABSENT: hearing changes Cardiovascular: PRESENT: dyspnea on exertion, edema, orthropnea. ABSENT: chest pain, palpitations Respiratory: PRESENT: cough, dyspnea, sputum. ABSENT: hemoptysis Gastrointestinal: ABSENT: abdominal pain, constipation, diarrhea, hematemesis, hematochezia, nausea, vomiting Genitourinary: ABSENT: dysuria, hematuria Musculoskeletal: ABSENT: joint swelling Integumentary: ABSENT: rash, wounds Neurological: ABSENT: abnormal gait, abnormal speech, confusion, dizziness, focal weakness, syncope Psychiatric: ABSENT: anxiety, depression, homidical ideation, suicidal ideation Endocrine: ABSENT: cold intolerance, heat intolerance, polydipsia, polyuria Hematologic/Lymphatic: ABSENT: easy bleeding, easy bruising Physical Exam Vital Signs: Temp Pulse Resp BP Pulse Ox 115 H 17 99/79 L 93 06/16/19 13:40 06/16/19 14:01 06/16/19 14:00 06/16/19 14:01 Intake & Output 06/15/19 06/16/19 06/17/19 06:59 06:59 06:59 Intake Total 67 Balance 67 Weight 84.7 kg General appearance: PRESENT: no acute distress, cooperative, obese, well- developed, well-nourished Head exam: PRESENT: atraumatic, normocephalic Eye exam: PRESENT: conjunctiva pink, EOMI, PERRLA. ABSENT: scleral icterus Ear exam: PRESENT: normal external ear exam Mouth exam: PRESENT: moist, tongue midline Neck exam: ABSENT: carotid bruit, JVD, lymphadenopathy, thyromegaly Respiratory exam: PRESENT: crackles, symmetrical, tachypnea, other - BiPAP dependent. ABSENT: rales, rhonchi, wheezes Cardiovascular exam: PRESENT: irregular rhythm, +S1, +S2, tachycardia - Heart rate 110. ABSENT: diastolic murmur, rubs, systolic murmur Pulses: PRESENT: normal dorsalis pedis pul Vascular exam: PRESENT: normal capillary refill GI/Abdominal exam: PRESENT: normal bowel sounds, soft. ABSENT: distended, gua rding, mass, organolmegaly, rebound, tenderness Rectal exam: PRESENT: deferred Extremities exam: PRESENT: full ROM, +1 edema - Pitting RLE, +2 edema - Pitting LLE. ABSENT: calf tenderness, clubbing, pedal edema Neurological exam: PRESENT: alert, awake, oriented to person, oriented to place, oriented to time, oriented to situation, CN II-XII grossly intact. ABSENT: motor sensory deficit Psychiatric exam: PRESENT: appropriate affect, normal mood. ABSENT: homicidal ideation, suicidal ideation Skin exam: PRESENT: dry, intact, warm. ABSENT: cyanosis, rash Results Laboratory Results: 06/16/19 10:15 06/16/19 10:15 06/16/19 06/16/19 06/16/19 10:15 10:15 12:00 WBC 6.2 RBC 3.31 L Hgb 10.2 L Hct 30.9 L MCV 94 MCH 30.9 MCHC 33.1 RDW 15.5 H Plt Count 272 Seg Neutrophils % Not Reportable Sodium 137.0 Potassium 3.9 Chloride 84 L Carbon Dioxide 41 H* Anion Gap 12 BUN 17 Creatinine 0.63 Est GFR ( Amer) > 60 Glucose 117 H Calcium 9.1 Magnesium 2.1 Total Bilirubin 1.1 AST 87 H Alkaline Phosphatase 130 H Total Protein 6.9 Albumin 3.8 Urine Color YELLOW Urine Appearance CLEAR Urine pH 6.0 Ur Specific [place] 1.010 Urine Protein NEGATIVE Urine Glucose (UA) NEGATIVE Urine Ketones NEGATIVE Urine Blood LARGE H Urine Nitrite POSITIVE H Ur Leukocyte Esterase TRACE H Urine WBC (Auto) 14 Urine RBC (Auto) 8 06/16/19 06/16/19 10:15 10:15 Creatine Kinase 50 Troponin I 0.168 NT-Pro-B Natriuret Pep 3780 H Impressions: Chest X-Ray 06/16/19 10:08 IMPRESSION: Fluid overload or congestive failure Assessment and Plan - Diagnosis (1) Acute and chronic respiratory failure with hypoxia Is this a current diagnosis for this admission?: Yes Plan: Secondary to acute CHF exacerbation. Patient is admitted to the medical floor on continuous cardiac telemetry. We will provide supplemental oxygen and BiPAP as needed to maintain oxygen saturations. Management of acute CHF exacerbation as below. (2) Congestive heart failure Qualifiers: Heart failure type: unspecified Heart failure chronicity: acute on chronic Qualified Code(s): I50.9 - Heart failure, unspecified Is this a current diagnosis for this admission?: Yes Plan: Likely secondary to acute respiratory failure with hypoxia. Esmolol is discontinued. Patient was briefly placed on amiodarone which was discontinued 2 weeks ago. Family does report that the patient has had persistent tachycardia since that time. We will start metoprolol 12.5 mg twice daily. Start digoxin 0.125 mg daily. Monitor on continuous cardiac telemetry. We will consult the patient's primary textile converter, Dr. Gil. We will request echocardiogram report; completed during recent admission to [facility]. IV furosemide for diuresis. Daily weights, strict I&O's, Cardiac diet. (3) Rapid atrial fibrillation Is this a current diagnosis for this admission?: Yes Plan: We will start metoprolol 12.5 mg twice daily. Start digoxin 0.125 mg daily. Monitor on continuous cardiac telemetry. We will consult the patient's primary textile converter, Dr. Gil. Coumadin as below. (4) Coronary artery disease Is this a current diagnosis for this admission?: Yes Plan: Continue daily aspirin therapy. Coumadin management as below. Will monitor on continuous cardiac telemetry. Troponin is elevated; however, this is likely secondary to demand mismatch ischemia as the patient presented with an SPO2 of 70% on her baseline oxygen requirement and currently denies chest pain. (5) Supratherapeutic INR Is this a current diagnosis for this admission?: Yes Plan: INR 6.43 P.o. vitamin K x1. Holding Coumadin. Daily PT/INR. Pharmacy to dose Coumadin when appropriate to resume. (6) Anticoagulated on Coumadin Is this a current diagnosis for this admission?: Yes Plan: Daily PT/INR. Coumadin per pharmacy. - Time Time Spent with patient: 35 or more minutes Medications reviewed and adjusted accordingly: Yes Anticipated discharge: Home with Homehealth - Inpatient Certification Based on my medical assessment, after consideration of the patient's comorbidities, presenting symptoms, or acuity I expect that the services needed warrant INPATIENT care.: Yes I certify that my determination is in accordance with my understanding of Medicare's requirements for reasonable and necessary INPATIENT services [42 CFR 412.3e].: Yes Medical Necessity: Need Close Monitoring Due to Risk of Patient Decompensation, Need For IV Fluids, Need For Continuous Telemetry Monitoring, Risk of Complication if Not Cared For in Hospital
[2019-06-16 16:55] LABS: HEMATOCRIT 31.9 % (36.0-47.0); HEMOGLOBIN 10.3 g/dL (12.0-15.5); MEAN CORPUSCULAR HEMOGLOBIN 30.1 pg (27.0-33.4); MEAN CORPUSCULAR HGB CONC 32.3 g/dL (32.0-36.0); MEAN CORPUSCULAR VOLUME 93 fl (80-97); PLATELET COUNT 241 10^3/uL (150-450); RED BLOOD COUNT 3.43 10^6/uL (3.72-5.28); RED CELL DISTRIBUTION WIDTH 15.6 % (11.5-14.0); WHITE BLOOD COUNT 5.7 10^3/uL (4.0-10.5)
[2019-06-16] MEDS: FUROSEMIDE INJ/PF 40 MG/4 ML SDV IV SCH (22:19)
[2019-06-16] MEDS: ATORVASTATIN CALCIUM 40 MG TABLET PO SCH (22:20)
[2019-06-16] MEDS: METOPROLOL SUCCINATE 25 MG TAB.SR.24H PO SCH (22:21)
[2019-06-17] MEDS: KETOROLAC TROMETHAMINE INJ/PF 30 MG/1 ML SDV IV PRN ×4 (03:10→22:19)
[2019-06-17 06:20] LABS: INTERNATIONAL RATION (INR) 8.36; PROTHROMBIN TIME 72.1 SEC (11.4-15.4)
[2019-06-17] MEDS ORDERED: PHYTONADIONE 5 MG TABLET PO ONE ×2 (07:00→11:00)
[2019-06-17] MEDS: EZETIMIBE 10 MG TABLET PO SCH (09:22)
[2019-06-17] MEDS: POTASSIUM CHLORIDE 20 MEQ PACKET PO SCH (09:22)
[2019-06-17] MEDS: FUROSEMIDE INJ/PF 40 MG/4 ML SDV IV SCH (09:22)
[2019-06-17] MEDS: ESCITALOPRAM OXALATE 10 MG TABLET PO SCH (09:22)
[2019-06-17] MEDS: ASPIRIN 81 MG TABLET, ENT COATED PO SCH (09:23)
[2019-06-17] MEDS: METOPROLOL SUCCINATE 25 MG TAB.SR.24H PO SCH (09:23)
[2019-06-17] MEDS: DOCUSATE SODIUM 100 MG CAPSULE PO SCH (09:23)
[2019-06-17] MEDS ORDERED: DIGOXIN 0.125 MG TABLET PO SCH (10:00)
[2019-06-17] MEDS: SPIRONOLACTONE 25 MG TABLET PO SCH (11:26)
--- NOTE | 2019-06-17 22:11 | PDOC PROGRESS REPORT ---
Subjective Progress Note for:: 06/17/19 Subjective:: SOFIA MISTRY is a 74 year old female with a past medical history of atrial fibrillation, chronically anticoagulated on Coumadin, CAD, CHF, chronic respiratory failure; on home O2, and obesity who was admitted 06/16/2019 with acute respiratory failure with hypoxia secondary to acute CHF exacerbation. Patient was seen on morning rounds with her son present. She was found sitting up to the edge of the bed, comfortably, on supplemental oxygen at 3 L/min. She utilizes 3 L/min at home., However, after approximately 5 to 10 minutes of sitting upright, she became very fatigued, with increased work of breathing, and accessory muscle use. She was placed on BiPAP with near immediate relief of her symptoms. She does report continued fatigue, dyspnea at rest, nonproductive cough, and peripheral edema. She does report that her orthopnea is significantly improv ed, especially when utilizing BiPAP. She denies fever, chest pain, palpitations, abdominal pain, nausea and vomiting. She does report a poor appetite. They have no questions or concerns at this time. Nursing notes decreased urinary output; have requested bladder scanning. May need to institute Loo catheter while diuresing with furosemide to accurately track I&Os Reason For Visit: HEART FAILURE Physical Exam Vital Signs: Temp Pulse Resp BP Pulse Ox 97.6 F 108 H 18 119/53 L 97 06/17/19 18:02 06/17/19 18:02 06/17/19 20:11 06/17/19 18:02 06/17/19 20:11 Intake & Output 06/16/19 06/17/19 06/18/19 06:59 06:59 06:59 Intake Total 307 480 Output Total 400 700 Balance -93 -220 Weight 67.1 kg General appearance: PRESENT: no acute distress, cooperative, hard of hearing, obese, well-developed, well-nourished Head exam: PRESENT: atraumatic, normocephalic Eye exam: PRESENT: conjunctiva pink, EOMI, PERRLA. ABSENT: scleral icterus Ear exam: PRESENT: normal external ear exam Mouth exam: PRESENT: moist, tongue midline Respiratory exam: PRESENT: accessory muscle use, crackles, symmetrical, tachypnea, other - Oxygen and intermittent BiPAP use.. ABSENT: rales, rhonchi, wheezes Cardiovascular exam: PRESENT: irregular rhythm, +S1, +S2, tachycardia. ABSENT: diastolic murmur, rubs, systolic murmur Pulses: PRESENT: +1 pedal pulses bilateral Vascular exam: PRESENT: normal capillary refill Rectal exam: PRESENT: deferred Extremities exam: PRESENT: full ROM, pedal edema, +2 edema - +2 BLE pitting edema. ABSENT: calf tenderness, clubbing Neurological exam: PRESENT: alert, awake, oriented to person, oriented to place, oriented to time, oriented to situation, CN II-XII grossly intact. ABSENT: motor sensory deficit Psychiatric exam: PRESENT: appropriate affect, normal mood. ABSENT: homicidal ideation, suicidal ideation Skin exam: PRESENT: dry, intact, warm. ABSENT: cyanosis, rash Results Laboratory Results: 06/16/19 15:52 06/16/19 10:15 06/17/19 06/17/19 04:18 04:18 Magnesium 2.1 TSH 4.51 06/16/19 06/16/19 06/17/19 10:15 10:15 04:18 Creatine Kinase 50 Troponin I 0.168 NT-Pro-B Natriuret Pep 3780 H 4040 H Impressions: Chest X-Ray 06/16/19 10:08 IMPRESSION: Fluid overload or congestive failure Assessment and Plan - Diagnosis (1) Acute and chronic respiratory failure with hypoxia Is this a current diagnosis for this admission?: Yes Plan: Slight improvement today; now tolerating periods off BiPAP. Secondary to acute CHF exacerbation. Patient is admitted to the medical floor on continuous cardiac telemetry. We will provide supplemental oxygen and BiPAP as needed to maintain oxygen saturations. Management of acute CHF exacerbation as below. (2) Congestive heart failure Qualifiers: Heart failure type: unspecified Heart failure chronicity: acute on chronic Qualified Code(s): I50.9 - Heart failure, unspecified Is this a current diagnosis for this admission?: Yes Plan: Likely secondary to uncontrolled A. fib Esmolol is discontinued. Patient was briefly placed on amiodarone which was discontinued 2 weeks ago. Family does report that the patient has had persistent tachycardia since that time. Has been increased to 25 mg twice daily Monitor on continuous cardiac telemetry. We will consult the patient's primary legal internship, Dr. Gil. Appreciate ADEEL Heaton with Dr. Gil's clinic, evaluations and recommendations. Medications have been adjusted per her expertise. Toprol increased, now on spironolactone. Furosemide is increased, additional p.o. vitamin K. Patient We will request echocardiogram report; completed during recent admission to [facility]. Daily weights, strict I&O's, Cardiac diet, fluid restricted 2 L daily (3) Rapid atrial fibrillation Is this a current diagnosis for this admission?: Yes Plan: Metoprolol increased to 25 mg twice daily Monitor on continuous cardiac telemetry. We will consult the patient's primary legal internship, Dr. Gil. Appreciate cardiology's recommendations Coumadin as below. (4) Coronary artery disease Is this a current diagnosis for this admission?: Yes Plan: Continue daily aspirin therapy. Coumadin management as below. Will monitor on continuous cardiac telemetry. Troponin is elevated; however, this is likely secondary to demand mismatch ischemia as the patient presented with an SPO2 of 70% on her baseline oxygen requirement and currently denies chest pain. (5) Supratherapeutic INR Is this a current diagnosis for this admission?: Yes Plan: INR 6.43-> 8.36 PO vitamin K 7.5 mg today. Holding Coumadin. May need to consider FFP if she has not made significant improvements by tomorrow lab eval. Daily PT/INR. Occult stool pending. Pharmacy to dose Coumadin when appropriate to resume. (6) Anticoagulated on Coumadin Is this a current diagnosis for this admission?: Yes Plan: Daily PT/INR. Coumadin per pharmacy. - Time Time Spent with patient: 35 or more minutes Medications reviewed and adjusted accordingly: Yes Anticipated discharge: Home with Homehealth
--- NOTE | 2019-06-17 22:14 | PDOC CONSULTATION ---
Consultation Consult Date: 06/17/19 Provider Consulted: OTTO GIL Consult reason:: A/C CHF History of Present Illness Admission Date/PCP: 06/16/19 13:41 KRUPA VANCE PA-C History of Present Illness: SOFIA MISTRY is a 74 year old female with a past medical history of atrial fibrillation, chronically anticoagulated on Coumadin, CAD, CHF, chronic respiratory failure; on home O2, and obesity who presented to the emergency department today with a complaint of sudden onset shortness of breath. Patient was recently discharged from [facility] where she received treatment for urinary tract infection and atrial fibrillation RVR. She was placed on amiodarone 1200mg/day there, d/c to [place] [facility] then home but was seen in the office and sent back to [facility] for eval of Amio toxicity. However, they continued the Amio at 1200/day and was on that for approx 6wks when she was instructed to discontinue by her primary director of search engine marketing, Dr Gil. She has been off amiodarone for 2 weeks and has had a persistently elevated heart rate since that time (no documentation as to what that HR elevation has been). Of note, her INR has been consistently supratherapeutic and Coumadin has been held. When in the office approx 2 wks ago, was noted to be just over 3. Further evaluation in the emergency department revealed atrial fibrillation RVR with a heart rate 115-120, labile blood pressures, and initial hypoxia of 70% on her baseline oxygen requirement. Laboratory evaluation revealed baseline anemia with a hemoglobin of 10.2, supratherapeutic INR at 6.43, elevated bicarb of 41, baseline proBNP of 3000, troponin of 0.168 (likely secondary to demand ischemia, and urinalysis suggestive of UTI). Chest x-ray showed mild pulmonary vascular congestion with breanne lines both lung bases She was provided IV furosemide, Rocephin, and placed on BiPAP. She was briefly placed on an esmolol drip for A. fib RVR, however, this was discontinued as it made minimal difference to her heart rate. At this time, urine culture is pending and so far positive for gram neg rods. Past Medical History Cardiac Medical History: Reports: Atrial Fibrillation, Congestive Heart Failure, Coronary Artery Disease, Hyperlipidema, Hypertension - MEDS Denies: Myocardial Infarction Pulmonary Medical History: Reports: Chronic Obstructive Pulmonary Disease (COPD), Respiratory Failure Denies: Asthma, Bronchitis, Pneumonia Neurological Medical History: Denies: Ischemic CVA, Seizures Endocrine Medical History: Reports: Obesity Denies: Hypothyroidism Renal/ Medical History: Reports: None Malignancy Medical History: Reports: None GI Medical History: Denies: Hepatitis, Hiatal Hernia Musculoskeltal Medical History: Reports: Arthritis Psychiatric Medical History: Reports: None Hematology: Reports: Anemia Denies: Sickle Cell Disease Infectious Medical History: Reports: Methicillin-Resistant Staph Aureus Past Surgical History Past Surgical History: Reports: Cardiac Catheterization, Coronary Artery Bypass Graft, Valve Replacement Denies: Amputation, Hysterectomy, Mastectomy, Pacemaker Social History Lives with: Family Smoking Status: Former Smoker Electronic Cigarette use?: No Frequency of Alcohol Use: None Hx Recreational Drug Use: No Hx Prescription Drug Abuse: No Family History Family History: CVA, DM Parental Family History Reviewed: Yes Children Family History Reviewed: Yes Sibling(s) Family History Reviewed.: Yes Medication/Allergy Home Medications: Aspirin [Ecotrin 81 mg EC Tablet] 81 mg PO QHS 01/08/12 Atorvastatin Calcium [Lipitor 40 mg Tablet] 40 mg PO QHS 01/08/12 Baclofen [Baclofen 10 mg Tablet] 10 mg PO Q8HP PRN 01/08/12 Gabapentin 800 mg PO QIDP PRN 01/08/12 Ezetimibe [Zetia 10 mg Tablet] 10 mg PO DAILY 02/06/13 Furosemide [Lasix 80 mg Tablet] 80 mg PO WESA@1000 02/06/13 Potassium Chloride [Klor-Con] 10 meq PO DAILY 02/06/13 Cholecalciferol (Vitamin D3) [Vitamin D3 1000 Unit Tablet] 5,000 unit PO DAILY 06/16/19 Escitalopram Oxalate [Lexapro 10 mg Tablet] 10 mg PO DAILY 06/16/19 Furosemide [Lasix 40 mg Tablet] 40 mg PO SUMOTUTHFR@1000 06/16/19 Guaifenesin 400 mg PO Q4HP PRN 06/16/19 Oxycodone HCl/Acetaminophen [Oxycodone-Acetaminophen 10-325] 1 each PO TIDP PRN 06/16/19 Oxycodone Myristate [Xtampza ER] 9 mg PO BID 06/16/19 Warfarin Sodium [Coumadin 1 mg Tablet] 1 mg PO DAILY 06/16/19 Allergies/Adverse Reactions: JANUSZ Inhibitors [Janusz Inhibitors] Allergy (Verified 06/16/19 10:31) Rash ACEINHIBITORS [JANUSZ Inhibitors] Allergy (Verified 06/16/19 10:31) RASH fish derived [Fish derived] Allergy (Verified 06/16/19 10:31) RASH latex Allergy (Verified 06/16/19 10:31) NSAIDS (Non-Steroidal Anti-Inflamma [Nsaids] Allergy (Verified 06/16/19 10:31) RASH tramadol [Tramadol] Allergy (Verified 06/16/19 10:31) RASH Review of Systems Constitutional: PRESENT: anorexia, fatigue, weakness. ABSENT: chills, fever(s), headache(s) Eyes: ABSENT: visual disturbances Ears: ABSENT: hearing changes Cardiovascular: PRESENT: dyspnea on exertion - fairly inactive at present from bed to chair, edema. ABSENT: chest pain, palpitations Respiratory: PRESENT: dyspnea Gastrointestinal: ABSENT: abdominal pain, diarrhea, melena, nausea, vomiting Genitourinary: ABSENT: difficulty urinating, dysuria, hematuria Musculoskeletal: PRESENT: back pain, joint swelling Integumentary: ABSENT: rash, wounds Neurological: ABSENT: confusion, dizziness, focal weakness, syncope, vertigo Psychiatric: ABSENT: anxiety, depression Endocrine: ABSENT: cold intolerance, heat intolerance, polydipsia, polyuria Hematologic/Lymphatic: ABSENT: easy bleeding, easy bruising Physical Exam Vital Signs: Temp Pulse Resp BP Pulse Ox 97.6 F 103 H 20 135/87 H 97 06/17/19 12:28 06/17/19 12:28 06/17/19 12:28 06/17/19 12:28 06/17/19 12:28 Intake & Output 06/16/19 06/17/19 06/18/19 06:59 06:59 06:59 Intake Total 307 480 Output Total 400 600 Balance -93 -120 Weight 67.1 kg General appearance: PRESENT: no acute distress, cooperative, obese Head exam: PRESENT: atraumatic, normocephalic Eye exam: PRESENT: conjunctiva pink, EOMI. ABSENT: scleral icterus Mouth exam: PRESENT: dry mucosa, tongue midline Neck exam: ABSENT: carotid bruit, JVD, lymphadenopathy, thyromegaly Respiratory exam: PRESENT: crackles - bilateal teran, decreased breath sounds - bilateral bases, unlabored. ABSENT: tachypnea, wheezes Cardiovascular exam: PRESENT: irregular rhythm, +S1, +S2, systolic murmur - 2/6, other - S3 on exam today Pulses: PRESENT: normal dorsalis pedis pul Vascular exam: PRESENT: normal capillary refill GI/Abdominal exam: PRESENT: normal bowel sounds, soft. ABSENT: distended, guarding, mass, organolmegaly, rebound, tenderness Extremities exam: PRESENT: +1 edema - just over her knees and trace at sacrum Musculoskeletal exam: PRESENT: ambulatory, full ROM Neurological exam: PRESENT: alert, awake, oriented to person, oriented to place, oriented to time Psychiatric exam: PRESENT: appropriate affect, normal mood Skin exam: PRESENT: dry, intact, warm. ABSENT: cyanosis, rash Results Laboratory Results: 06/16/19 15:52 06/16/19 10:15 06/16/19 06/17/19 06/17/19 15:52 04:18 04:18 WBC 5.7 RBC 3.43 L Hgb 10.3 L Hct 31.9 L MCV 93 MCH 30.1 MCHC 32.3 RDW 15.6 H Plt Count 241 Magnesium 2.1 TSH 4.51 06/16/19 06/16/19 06/17/19 10:15 10:15 04:18 Creatine Kinase 50 Troponin I 0.168 NT-Pro-B Natriuret Pep 3780 H 4040 H Impressions: Chest X-Ray 06/16/19 10:08 IMPRESSION: Fluid overload or congestive failure Assessment & Plan - Diagnosis (1) Congestive heart failure Qualifiers: Heart failure type: unspecified Heart failure chronicity: acute on chronic Qualified Code(s): I50.9 - Heart failure, unspecified Is this a current diagnosis for this admission?: Yes Plan: NTBNP 06/15 = 3780, 06/16 after IV Lasix 40mg bid = 4040. clearly needs more aggressive diuresis. Inc IV Lasix to 80mg bid likely for 2 days but will follow her RFT and NTBNP. Want her NTBNP closer to 1800 if we can get it there. Also, add Aldactone 25mg for additional diuresis and K sparing since her K is 3.9. No need for Digoxin, won't help her and will likely effect her RFT. Cont daily weights, close I&O and daily CXR for resolution of CHF. (2) Rapid atrial fibrillation Is this a current diagnosis for this admission?: Yes Plan: Change Metoprolol Succ 12.5 bid to Metoprolol Tart 50 bid for better rate control. Monitor BP and and keep her hydrated. As it is, her HR staying around 115 bpm is not excessive but needs to be decreased to control her TI and HF. Will consider going back to a much lower dose of Amio at a later date. First, need to let her LFTs recover, check PFT w/DLCO prior to discharge once her HF is improved. (3) Anticoagulated on Coumadin Is this a current diagnosis for this admission?: Yes (4) Urinary tract infection Qualifiers: Urinary tract infection type: acute cystitis Hematuria presence: with hematuria Qualified Code(s): N30.01 - Acute cystitis with hematuria Is this a current diagnosis for this admission?: Yes Plan: Was started on Rocephin pending culture results. Last check, positive for gram neg rods. Recommend cont with that until definitive tx can be planned per sensitivity. Of note, large hematuria, Hg dec to 10.2, INR supratherapeutic secondary to previous Amio dosing and Tylenol/NSAID use for pain control. (5) Acute and chronic respiratory failure with hypoxia Is this a current diagnosis for this admission?: Yes Plan: Currently on bipap with oxygen keeping her O2 sats appropriate. Continue as appropriate. Will be checking daily CXRs to follow resolution of HF. Plan to check PFT w/DLCO prior to d/c after HF improvement. (6) Supratherapeutic INR Is this a current diagnosis for this admission?: Yes Plan: Was previously on Amio at 1200/d, significantly increased INR and was holding Coumadin on outpt basis. Pos UTI with hematuria, need to follow CBC, needs stool checked for occult blood. Give one dose Vit K at 2.5mg and follow INR. (7) Coronary artery disease Is this a current diagnosis for this admission?: Yes Plan: Continue ASA 81mg, needs her bypass grafts protected. Currently denies chest pain despite elevated Troponin which is most likely due to her CHF and Afib. Check TI in as we diuresis and see if coming down.
[2019-06-17] MEDS: FUROSEMIDE INJ/PF 100 MG/10 ML SDV IV SCH (22:17)
[2019-06-17] MEDS: ATORVASTATIN CALCIUM 40 MG TABLET PO SCH (22:18)
[2019-06-17] MEDS: METOPROLOL TARTRATE 50 MG TABLET PO SCH (22:18)
[2019-06-18 06:40] LABS: HEMATOCRIT 29.8 % (36.0-47.0); HEMOGLOBIN 9.7 g/dL (12.0-15.5); MEAN CORPUSCULAR HEMOGLOBIN 30.3 pg (27.0-33.4); MEAN CORPUSCULAR HGB CONC 32.5 g/dL (32.0-36.0); MEAN CORPUSCULAR VOLUME 93 fl (80-97); PLATELET COUNT 253 10^3/uL (150-450); RED BLOOD COUNT 3.19 10^6/uL (3.72-5.28); RED CELL DISTRIBUTION WIDTH 15.5 % (11.5-14.0); WHITE BLOOD COUNT 8.2 10^3/uL (4.0-10.5)
[2019-06-18 06:48] LABS: INTERNATIONAL RATION (INR) 4.95; PROTHROMBIN TIME 47.5 SEC (11.4-15.4)
[2019-06-18 06:54] LABS: ARTERIAL BLOOD BASE EXCESS 15.6 mmol/L; ARTERIAL BLOOD HCO3 44.2 mmol/L (20-24); ARTERIAL BLOOD O2 SATURATION 97.6 % (94-98); ARTERIAL BLOOD PH 7.36 (7.35-7.45); ARTERIAL BLOOD PO2 109.2 mmHg (80-100); ARTERIAL BLOOD TOTAL CO2 46.6 mmol/L (21-25)
[2019-06-18 06:56] LABS: ARTERIAL BLOOD FIO2 45%; ARTERIAL BLOOD PCO2 79.6 mmHg (35-45)
[2019-06-18 07:07] LABS: BLOOD UREA NITROGEN 21 mg/dL (7-20); CALCIUM 8.8 mg/dL (8.4-10.2); CHLORIDE 85 mmol/L (98-107); GLUCOSE 91 mg/dL (75-110); POTASSIUM 3.8 mmol/L (3.6-5.0)
[2019-06-18 07:15] LABS: ANION GAP 7 (5-19)
[2019-06-18 07:18] LABS: CARBON DIOXIDE 47 mmol/L (22-30)
[2019-06-18] MEDS ORDERED: ALBUTEROL SULFATE 0.083% NEB 2.5 MG/3 ML AMPUL NEB PRN (07:35)
[2019-06-18] MEDS ORDERED: PHYTONADIONE 5 MG TABLET PO ONE (08:00)
[2019-06-18] MEDS: IPRATROPIUM/ALBUTEROL 0.5-2.5 MG/3 ML AMPUL NEB SCH ×2 (08:38→16:08)
[2019-06-18] MEDS: DOCUSATE SODIUM 100 MG CAPSULE PO SCH (10:05)
[2019-06-18] MEDS: POTASSIUM CHLORIDE 20 MEQ PACKET PO SCH (10:05)
[2019-06-18] MEDS: SPIRONOLACTONE 25 MG TABLET PO SCH (10:06)
[2019-06-18] MEDS: EZETIMIBE 10 MG TABLET PO SCH (10:06)
[2019-06-18] MEDS: ESCITALOPRAM OXALATE 10 MG TABLET PO SCH (10:06)
[2019-06-18] MEDS: METOPROLOL TARTRATE 50 MG TABLET PO SCH ×2 (10:06→21:39)
[2019-06-18] MEDS: ASPIRIN 81 MG TABLET, ENT COATED PO SCH (10:06)
[2019-06-18] MEDS: FUROSEMIDE INJ/PF 100 MG/10 ML SDV IV SCH ×2 (10:07→21:38)
--- NOTE | 2019-06-18 10:19 | RADIOLOGY REPORT (SQ) ---
EXAM DESCRIPTION: CHEST SINGLE VIEW COMPLETED DATE/TIME: 06/18/2019 9:34 am REASON FOR STUDY: hypoxia, dyspnea COMPARISON: 06/16/2019 NUMBER OF VIEWS: One view. TECHNIQUE: Single frontal radiographic image of the chest acquired. LIMITATIONS: None. FINDINGS: LUNGS AND PLEURA: Improved aeration in the left lung with residual small left effusion. T here is a background of chronic changes. MEDIASTINUM AND HEART: Stable heart size and mediastinal structures. BONY STRUCTURES: No acute findings. HARDWARE: Prosthetic heart valve. OTHER: No other significant finding. IMPRESSION: Improved aeration left lower lobe. TECHNICAL DOCUMENTATION: JOB ID: [id number] Reading location - IP/workstation name: [email or web address]
[2019-06-18 14:43] LABS: APPEARANCE,URINE CLEAR; BILIRUBIN,URINE NEGATIVE (NEGATIVE); COLOR,URINE YELLOW; GLUCOSE, URINE NEGATIVE (NEGATIVE); KETONES,URINE NEGATIVE (NEGATIVE); LEUKOCYTE ESTERASE,URINE NEGATIVE (NEGATIVE); NITRITE,URINE NEGATIVE (NEGATIVE); PROTEIN,URINE NEGATIVE (NEGATIVE); UROBILINOGEN,URINE NEGATIVE mg/dL (<2.0)
[2019-06-18 14:50] LABS: ADD MANUAL MICROSCOPIC YES
[2019-06-18 14:55] LABS: BACTERIA,URINE TRACE /HPF
[2019-06-18 16:58] LABS: ARTERIAL BLOOD BASE EXCESS 23.3 mmol/L; ARTERIAL BLOOD H2CO3 2.14 mmol/L (1.05-1.35); ARTERIAL BLOOD HCO3 50.4 mmol/L (20-24); ARTERIAL BLOOD O2 SATURATION 96.1 % (94-98); ARTERIAL BLOOD PH 7.47 (7.35-7.45); ARTERIAL BLOOD PO2 81.6 mmHg (80-100); ARTERIAL BLOOD TOTAL CO2 52.6 mmol/L (21-25)
[2019-06-18 17:05] LABS: ARTERIAL BLOOD FIO2 45%
[2019-06-18 17:06] LABS: ARTERIAL BLOOD PCO2 71.2 mmHg (35-45)
--- NOTE | 2019-06-18 17:32 | PDOC PROGRESS REPORT ---
Subjective Progress Note for:: 06/18/19 Subjective:: SOFIA MISTRY is a 74 year old female with a past medical history of atrial fibrillation, chronically anticoagulated on Coumadin, CAD, CHF, chronic respiratory failure; on home O2, and obesity who was admitted 06/16/2019 with acute respiratory failure with hypoxia secondary to acute CHF exacerbation. Patient was seen on morning rounds with her son present. She was found resting in bed on BiPAP. She utilizes 3 L/min at home but does not have CPAP or BiPAP.She reports increased fatigue, dyspnea, orthopnea, and general sense of feeling unwell. Peripheral edema is minimally improved. She denies fever, chest pain, palpitations, abdominal pain, nausea and vomiting. She does report a poor appetite. Discussed worsening dyspnea and elevated Bicarb with patient and family. All questions and concerns addressed. Patient confirms she is a DNR. Reason For Visit: HEART FAILURE Physical Exam Vital Signs: Temp Pulse Resp BP Pulse Ox 97.7 F 76 12 105/50 L 97 06/17/19 23:43 06/18/19 14:00 06/18/19 13:30 06/17/19 23:43 06/18/19 09:40 Intake & Output 06/17/19 06/18/19 06/19/19 06:59 06:59 06:59 Intake Total 307 480 Output Total 400 1100 Balance -93 -620 Weight 67.1 kg 66.8 kg General appearance: PRESENT: no acute distress, cooperative, hard of hearing, well-developed, well-nourished Head exam: PRESENT: atraumatic, normocephalic Eye exam: PRESENT: conjunctiva pink, EOMI, PERRLA. ABSENT: scleral icterus Ear exam: PRESENT: normal external ear exam Mouth exam: PRESENT: moist, tongue midline Respiratory exam: PRESENT: accessory muscle use, decreased breath sounds - t hroughout, symmetrical, other - shallow breaths; BiPAP. ABSENT: rales, rhonchi, wheezes Cardiovascular exam: PRESENT: irregular rhythm, +S1, +S2. ABSENT: diastolic murmur, rubs, systolic murmur Vascular exam: PRESENT: normal capillary refill Extremities exam: PRESENT: full ROM. ABSENT: calf tenderness, clubbing, pedal edema Neurological exam: PRESENT: alert, awake, oriented to person, oriented to place, oriented to time, oriented to situation, CN II-XII grossly intact, other - lethargic. ABSENT: motor sensory deficit Psychiatric exam: PRESENT: anxious, appropriate affect, normal mood. ABSENT: homicidal ideation, suicidal ideation Skin exam: PRESENT: dry, intact, warm. ABSENT: cyanosis, rash Results Laboratory Results: 06/18/19 06:25 06/18/19 06:25 06/18/19 06/18/19 06/18/19 06:25 06:25 06:35 WBC 8.2 RBC 3.19 L Hgb 9.7 L Hct 29.8 L MCV 93 MCH 30.3 MCHC 32.5 RDW 15.5 H Plt Count 253 Carbonic Acid 2.40 H HCO3/H2CO3 Ratio 18:1 ABG pH 7.36 ABG pCO2 79.6 H* ABG pO2 109.2 H ABG HCO3 44.2 H ABG O2 Saturation 97.6 ABG Base Excess 15.6 FiO2 45% Sodium 139.2 Potassium 3.8 Chloride 85 L Carbon Dioxide 47 H* Anion Gap 7 BUN 21 H Creatinine 0.74 Est GFR ( Amer) > 60 Glucose 91 Calcium 8.8 Urine Color Urine Appearance Urine pH Ur Specific Pilger Urine Protein Urine Glucose (UA) Urine Ketones Urine Blood Urine Nitrite Ur Leukocyte Esterase Ur Squamous Epith Cells 06/18/19 06/18/19 14:20 16:45 WBC RBC Hgb Hct MCV MCH MCHC RDW Plt Count Carbonic Acid 2.14 H HCO3/H2CO3 Ratio 23:1 ABG pH 7.47 H ABG pCO2 71.2 H* ABG pO2 81.6 ABG HCO3 50.4 H ABG O2 Saturation 96.1 ABG Base Excess 23.3 FiO2 45% Sodium Potassium Chloride Carbon Dioxide Anion Gap BUN Creatinine Est GFR ( Amer) Glucose Calcium Urine Color YELLOW Urine Appearance CLEAR Urine pH 5.0 Ur Specific Pilger 1.010 Urine Protein NEGATIVE Urine Glucose (UA) NEGATIVE Urine Ketones NEGATIVE Urine Blood MODERATE H Urine Nitrite NEGATIVE Ur Leukocyte Esterase NEGATIVE Ur Squamous Epith Cells FEW 06/16/19 06/16/19 06/17/19 10:15 10:15 04:18 Creatine Kinase 50 Troponin I 0.168 NT-Pro-B Natriuret Pep 3780 H 4040 H 06/18/19 06:25 Creatine Kinase Troponin I NT-Pro-B Natriuret Pep 5280 H Impressions: Chest X-Ray 06/18/19 00:00 IMPRESSION: Improved aeration left lower lobe. Assessment and Plan - Diagnosis (1) Acute and chronic respiratory failure with hypoxia Is this a current diagnosis for this admission?: Yes Plan: Worsened today; now on BiPAP ABG shows hypercapnia; PCO2 79.6. Repeat ABG after BiPAP is improved; PCO2 71.2. Repeat chest x-ray demonstrated improved aeration. Secondary to acute CHF exacerbation. Likely compounded by the patient's significant kyphosis. Patient is admitted to the medical floor on continuous cardiac telemetry. We will provide supplemental oxygen and BiPAP as needed to maintain oxygen saturations. Have asked nursing to utilize BiPAP 2 hours on 2 off while awake and continuous while sleeping. Will repeat ABG in am. Patient may require BiPAP at discharge. Management of acute CHF exacerbation as below. (2) Congestive heart failure Qualifiers: Heart failure type: unspecified Heart failure chronicity: acute on chronic Qualified Code(s): I50.9 - Heart failure, unspecified Is this a current diagnosis for this admission?: Yes Plan: Likely secondary to uncontrolled A. fib Esmolol is discontinued. Patient was briefly placed on amiodarone which was discontinued 2 weeks ago. Family does report that the patient has had persistent tachycardia since that time. Echocardiogram is pending. Medications per cardiology team. Metoprolol has been increased to 25 mg twice daily Has been placed on spironolactone. Furosemide has been increased. Patient with soft blood pressures; question whether or not she may benefit from short-term dobutamine drip while diuresing. Will defer to cardiology service. Daily weights, strict I&O's, Cardiac diet, fluid restricted 2 L daily (3) Rapid atrial fibrillation Is this a current diagnosis for this admission?: Yes Plan: Metoprolol increased to 25 mg twice daily Monitor on continuous cardiac telemetry. We will consult the patient's primary banquet captain, Dr. Gil. Appreciate cardiology's recommendations Coumadin as below. (4) Coronary artery disease Is this a current diagnosis for this admission?: Yes Plan: Continue daily aspirin therapy. Coumadin management as below. Will monitor on continuous cardiac telemetry. Troponin is elevated; however, this is likely secondary to demand mismatch ischemia as the patient presented with an SPO2 of 70% on her baseline oxygen requirement and currently denies chest pain. (5) Supratherapeutic INR Is this a current diagnosis for this admission?: Yes Plan: INR 6.43-> 8.36-> 4.95 PO vitamin K 7.5 mg yesterday Holding Coumadin. Occult stool pending. Follow up PT/INR Pharmacy to dose Coumadin when appropriate to resume. (6) Anticoagulated on Coumadin Is this a current diagnosis for this admission?: Yes Plan: Daily PT/INR. Coumadin per pharmacy. - Time Time Spent with patient: 35 or more minutes Medications reviewed and adjusted accordingly: Yes Anticipated discharge: Home with Homehealth
--- NOTE | 2019-06-18 21:29 | XCELERA REPORT ---
[address] [address] Transthoracic Echocardiogram Report Name: SOFIA MISTRY Age: 74 yrs Gender: Female : 1945 Patient Status: Inpatient Patient Location: ^[facility]^A Study Date: 06/18/2019 01:38 PM Height: 64 in Weight: 147 lb BSA: 1.7 m2 Reason For Study: chf exacerbation; acute resp failure Ordering Physician: DUKE HAYS Performed By: Geetha Greer Interpretation Summary Technically poor study, poor apical vviews, No AW visualization , LVEF probablyMild decreased 40-45%,with dilated LV, LVESD 47 mm, and multiple segmental wall motion (see pictorals), no LV diastolic dysfunction. Moderate aortic root calcium.Mild calcific aortic valvular stenosis, with no AR. MPG AV is 11mm Hg. Intact MV plasty ring, calcified M leaflets with no stenosis but moderate MR with moderate LA enlargement. R Heart enlarged,.moderate TV regurgitation with RVSP 42, and dilated IVC. MMode/2D Measurements & Calculations RVDd: 2.5 cm LVIDd: 5.8 cm FS: 18.5 % Ao root diam: 3.0 cm IVSd: 0.94 cm LVIDs: 4.7 cm EDV(Teich): Ao root area: LVPWd: 0.94 cm 166.1 ml ESV(Teich): 7.3 cm2 103.4 ml LA dimension: 4.4 cm EF(Teich): 37.8 % LVOT diam: 2.0 cm LVLd ap4: 7.1 cm SV(MOD-sp4): LVOT area: EDV(MOD-sp4): 42.0 ml 3.0 cm2 92.0 ml LVLs ap4: 5.9 cm ESV(MOD-sp4): 50.0 ml EF(MOD-sp4): 45.7 % Doppler Measurements & Calculations MV E max saleem: MV P1/2t max saleem: Ao V2 max: LV V1 max P.9 cm/sec 218.5 cm/sec 209.0 cm/sec 5.2 mmHg MV A max saleem: MV P1/2t: 83.0 msec Ao max PG: LV V1 mean P.4 cm/sec 17.5 mmHg 3.2 mmHg MV E/A: 1.6 MVA(P1/2t): 2.6 cm2 Ao V2 mean: LV V1 max: MV dec slope: 157.6 cm/sec 114.3 cm/sec 771.0 cm/sec2 MV dec time: 0.26 sec Ao mean PG: LV V1 mean: 11.4 mmHg 82.2 cm/sec Ao V2 VTI: 48.8 cm LV V1 VTI: 24.3 cm ADRIEL(I,D): 1.5 cm2 ADRIEL(V,D): 1.7 cm2 SV(LVOT): 73.8 ml PA V2 max: PI end-d saleem: TR max saleem: 100.2 cm/sec 149.3 cm/sec 291.8 cm/sec PA max P.0 mmHg TR max P.1 mmHg MV P1/2t-pr_phl: 83.0 msec Effusions Minimal pericardial effusion. I WMSI = 1.92 % Normal = 69 Segments Size X - Cannot 1 - Normal 2 - 3 - Akinetic4 - 1-2 small Interpret Hypokinetic Dyskinetic 3-5 moderate 5 - 6-14 large Aneurysmal 15-16 diffuse : DUKE HAYS Andre
[2019-06-18] MEDS: KETOROLAC TROMETHAMINE INJ/PF 30 MG/1 ML SDV IV PRN (21:38)
[2019-06-18] MEDS: ATORVASTATIN CALCIUM 40 MG TABLET PO SCH (21:39)
--- NOTE | 2019-06-18 22:11 | PDOC PROGRESS REPORT ---
Subjective Progress Note for:: 06/18/19 Subjective:: SOFIA MISTRY is a 74 year old female with a past medical history of atrial fibrillation, chronically anticoagulated on Coumadin, CAD, CHF, chronic respiratory failure; on home O2, and obesity who presented to the emergency department today with a complaint of sudden onset shortness of breath. Patient was recently discharged from [facility] where she received treatment for urinary tract infection and atrial fibrillation RVR. She was placed on amiodarone 1200mg/day there, d/c to alf then home but was seen in the office and sent back to [facility] for eval of Amio toxicity. However, they continued the Amio at 1200/day and was on that for approx 6wks when she was instructed to discontinue by her primary customer services supervisor, Dr Gil. She has been off amiodarone for 2 weeks and has had a persistently elevated heart rate since that time (no documentation as to what that HR elevation has been). Of note, her INR has been consistently supratherapeutic and Coumadin has been held. When in the office approx 2 wks ago, was noted to be just over 3. Further evaluation in the emergency department revealed atrial fibrillation RVR with a heart rate 115-120, labile blood pressures, and initial hypoxia of 70% on her baseline oxygen requirement. Laboratory evaluation revealed baseline anemia with a hemoglobin of 10.2, supratherapeutic INR at 6.43, elevated bicarb of 41, baseline proBNP of 3000, troponin of 0.168 (likely secondary to demand ischemia, and urinalysis suggestive of UTI). Chest x-ray showed mild pulmonary vascular congestion with breanne lines both lung bases She was provided IV furosemide, Rocephin, and placed on BiPAP. She was briefly placed on an esmolol drip for A. fib RVR, however, this was discontinued as it made minimal difference to her heart rate. At this time, urine culture is pending and so far positive for gram neg rods, Morganella Morganii. At this time, pt is not on abx tx. Reason For Visit: HEART FAILURE Physical Exam Vital Signs: Temp Pulse Resp BP Pulse Ox 98.1 F 93 18 102/62 98 06/18/19 19:51 06/18/19 19:51 06/18/19 19:51 06/18/19 19:51 06/18/19 19:51 Intake & Output 06/17/19 06/18/19 06/19/19 06:59 06:59 06:59 Intake Total 307 480 955 Output Total 400 1100 700 Balance -93 -620 255 Weight 67.1 kg 66.8 kg General appearance: PRESENT: no acute distress, well-developed, well-nourished Head exam: PRESENT: atraumatic, normocephalic Mouth exam: PRESENT: moist, tongue midline Respiratory exam: PRESENT: crackles - left greater than right base, decreased breath sounds. ABSENT: wheezes Cardiovascular exam: PRESENT: irregular rhythm, systolic murmur - 2/6. ABSENT: gallop, rubs GI/Abdominal exam: PRESENT: normal bowel sounds, soft. ABSENT: distended, guarding, mass, organolmegaly, rebound, tenderness Extremities exam: PRESENT: +1 edema - right greater than left Neurological exam: PRESENT: alert, awake, oriented to person, oriented to place, oriented to time Psychiatric exam: PRESENT: appropriate affect, normal mood. ABSENT: homicidal ideation, suicidal ideation Results Laboratory Results: 06/18/19 06:25 06/18/19 06:25 06/18/19 06/18/19 06/18/19 06:25 06:25 06:35 WBC 8.2 RBC 3.19 L Hgb 9.7 L Hct 29.8 L MCV 93 MCH 30.3 MCHC 32.5 RDW 15.5 H Plt Count 253 Carbonic Acid 2.40 H HCO3/H2CO3 Ratio 18:1 ABG pH 7.36 ABG pCO2 79.6 H* ABG pO2 109.2 H ABG HCO3 44.2 H ABG O2 Saturation 97.6 ABG Base Excess 15.6 FiO2 45% Sodium 139.2 Potassium 3.8 Chloride 85 L Carbon Dioxide 47 H* Anion Gap 7 BUN 21 H Creatinine 0.74 Est GFR ( Amer) > 60 Glucose 91 Calcium 8.8 Urine Color Urine Appearance Urine pH Ur Specific [place] Urine Protein Urine Glucose (UA) Urine Ketones Urine Blood Urine Nitrite Ur Leukocyte Esterase Ur Squamous Epith Cells 06/18/19 06/18/19 14:20 16:45 WBC RBC Hgb Hct MCV MCH MCHC RDW Plt Count Carbonic Acid 2.14 H HCO3/H2CO3 Ratio 23:1 ABG pH 7.47 H ABG pCO2 71.2 H* ABG pO2 81.6 ABG HCO3 50.4 H ABG O2 Saturation 96.1 ABG Base Excess 23.3 FiO2 45% Sodium Potassium Chloride Carbon Dioxide Anion Gap BUN Creatinine Est GFR ( Amer) Glucose Calcium Urine Color YELLOW Urine Appearance CLEAR Urine pH 5.0 Ur Specific [place] 1.010 Urine Protein NEGATIVE Urine Glucose (UA) NEGATIVE Urine Ketones NEGATIVE Urine Blood MODERATE H Urine Nitrite NEGATIVE Ur Leukocyte Esterase NEGATIVE Ur Squamous Epith Cells FEW 06/16/19 06/16/19 06/17/19 10:15 10:15 04:18 Creatine Kinase 50 Troponin I 0.168 NT-Pro-B Natriuret Pep 3780 H 4040 H 06/18/19 06:25 Creatine Kinase Troponin I NT-Pro-B Natriuret Pep 5280 H Impressions: Chest X-Ray 06/18/19 00:00 IMPRESSION: Improved aeration left lower lobe. Assessment & Plan - Diagnosis (1) Congestive heart failure Qualifiers: Heart failure type: unspecified Heart failure chronicity: acute on chronic Qualified Code(s): I50.9 - Heart failure, unspecified Is this a current diagnosis for this admission?: Yes Plan: NTBNP increased to 5280. CXR improved on left with better aeration. Edema has improved minimally, no longer above her knees. She has billy cath in for better output monitoring. Subjectively, states she is feeling better. Cont to monitor NTBNP, CXR, RFT. (2) Rapid atrial fibrillation Is this a current diagnosis for this admission?: Yes Plan: Now with CVR less than 100 on increased Metoprolol 50 bid. Cont same med. (3) Anticoagulated on Coumadin Is this a current diagnosis for this admission?: Yes Plan: Has been held due to supratherapeutic INR. Once INR is < 3.0, start back at 2.5mg Coumadin and maintain. (4) Acute and chronic respiratory failure with hypoxia Is this a current diagnosis for this admission?: Yes Plan: Worsened today; now on BiPAP ABG shows hypercapnia; PCO2 79.6. Repeat ABG after BiPAP is improved; PCO2 71.2. Repeat chest x-ray demonstrated improved aeration. Secondary to acute CHF exacerbation. Likely compounded by the patient's significant kyphosis. Patient is admitted to the medical floor on continuous cardiac telemetry. We will provide supplemental oxygen and BiPAP as needed to maintain oxygen saturations. Have asked nursing to utilize BiPAP 2 hours on 2 off while awake and continuous while sleeping. Will repeat ABG in am. Patient may require BiPAP at discharge. This per hospitalist. (5) Supratherapeutic INR Is this a current diagnosis for this admission?: Yes Plan: INR now 4.95 after Vit K dosing. Monitor, likely will drop further by AM. Once INR below 3.0, let her start back on Coumadin at 2.5mg daily and maintain that expecting her INR to be difficult to maintain secondary to Vit K, previous Amio use and any Tylenol use she may have. (6) Urinary tract infection Qualifiers: Urinary tract infection type: acute cystitis Hematuria presence: with hematuria Qualified Code(s): N30.01 - Acute cystitis with hematuria Is this a current diagnosis for this admission?: Yes Plan: Cx positive for Morganella Morganii. Tx per hospitalist recommendation (7) Coronary artery disease Is this a current diagnosis for this admission?: Yes Plan: Still no CPs. Maintain ASA81 and statin therapy. Plan to check TI Saturday AM.
[2019-06-19] MEDS: IPRATROPIUM/ALBUTEROL 0.5-2.5 MG/3 ML AMPUL NEB SCH ×4 (00:34→23:40)
[2019-06-19 05:05] LABS: INTERNATIONAL RATION (INR) 2.23; PROTHROMBIN TIME 25.1 SEC (11.4-15.4)
[2019-06-19 05:19] LABS: BLOOD UREA NITROGEN 23 mg/dL (7-20); CALCIUM 8.7 mg/dL (8.4-10.2); CHLORIDE 84 mmol/L (98-107); GLUCOSE 86 mg/dL (75-110); POTASSIUM 3.3 mmol/L (3.6-5.0)
[2019-06-19 05:30] LABS: ANION GAP 10 (5-19)
[2019-06-19 05:31] LABS: CARBON DIOXIDE 43 mmol/L (22-30)
[2019-06-19 06:00] LABS: ARTERIAL BLOOD BASE EXCESS 17.8 mmol/L; ARTERIAL BLOOD H2CO3 1.67 mmol/L (1.05-1.35); ARTERIAL BLOOD O2 SATURATION 95.7 % (94-98); ARTERIAL BLOOD PCO2 55.4 mmHg (35-45); ARTERIAL BLOOD PH 7.51 (7.35-7.45); ARTERIAL BLOOD PO2 74.2 mmHg (80-100); ARTERIAL BLOOD TOTAL CO2 44.7 mmol/L (21-25)
[2019-06-19 06:01] LABS: ARTERIAL BLOOD FIO2 30%
[2019-06-19] MEDS: POTASSIUM CHLORIDE 10 MEQ TABLET.ER PO SCH (10:04)
[2019-06-19] MEDS: METOPROLOL TARTRATE 50 MG TABLET PO SCH ×2 (10:05→22:23)
[2019-06-19] MEDS: ASPIRIN 81 MG TABLET, ENT COATED PO SCH (10:05)
[2019-06-19] MEDS: SPIRONOLACTONE 25 MG TABLET PO SCH (10:06)
[2019-06-19] MEDS: ESCITALOPRAM OXALATE 10 MG TABLET PO SCH (10:06)
[2019-06-19] MEDS: DOCUSATE SODIUM 100 MG CAPSULE PO SCH (10:06)
[2019-06-19] MEDS: FUROSEMIDE INJ/PF 100 MG/10 ML SDV IV SCH ×2 (10:07→22:22)
[2019-06-19] MEDS: EZETIMIBE 10 MG TABLET PO SCH (10:07)
[2019-06-19] MEDS: KETOROLAC TROMETHAMINE INJ/PF 30 MG/1 ML SDV IV PRN ×3 (10:19→22:23)
[2019-06-19] MEDS: CEFTRIAXONE 1 GM/D5W RTU 1 GM/50 ML RTUPB IV SCH (11:19)
[2019-06-19 15:14] LABS: HEMATOCRIT 28.8 % (36.0-47.0); HEMOGLOBIN 9.8 g/dL (12.0-15.5); MEAN CORPUSCULAR HEMOGLOBIN 30.8 pg (27.0-33.4); MEAN CORPUSCULAR HGB CONC 33.9 g/dL (32.0-36.0); MEAN CORPUSCULAR VOLUME 91 fl (80-97); PLATELET COUNT 249 10^3/uL (150-450); RED BLOOD COUNT 3.18 10^6/uL (3.72-5.28); RED CELL DISTRIBUTION WIDTH 15.5 % (11.5-14.0); WHITE BLOOD COUNT 7.7 10^3/uL (4.0-10.5)
[2019-06-19 16:34] LABS: APPEARANCE,URINE CLEAR; BILIRUBIN,URINE NEGATIVE (NEGATIVE); COLOR,URINE YELLOW; GLUCOSE, URINE NEGATIVE (NEGATIVE); KETONES,URINE TRACE mg/dL (NEGATIVE); LEUKOCYTE ESTERASE,URINE TRACE (NEGATIVE); NITRITE,URINE NEGATIVE (NEGATIVE); PROTEIN,URINE 30 mg/dL (NEGATIVE); UROBILINOGEN,URINE NEGATIVE mg/dL (<2.0)
--- NOTE | 2019-06-19 18:44 | PDOC PROGRESS REPORT ---
Subjective Progress Note for:: 06/19/19 Subjective:: SOFIA MISTRY is a 74 year old female with a past medical history of atrial fibrillation, chronically anticoagulated on Coumadin, CAD, CHF, chronic respiratory failure; on home O2, and obesity who was admitted 06/16/2019 with acute respiratory failure with hypoxia secondary to acute CHF exacerbation. Patient was seen on morning rounds with her son and [id number] present. She was found resting on bed on BiPAP; was transitioned to NC during out discussion. She utilizes 3 L/min at home but does not have CPAP or BiPAP. She reports improved fatigue and dyspnea. BLE edema is significantly improved. Overall, she is feeling much better. She denies fever, chest pain, palpitations, abdominal pain, nausea and vomiting. Appetite slightly better today. All questions and concerns are addressed. No concerns per family. Reason For Visit: HEART FAILURE Physical Exam Vital Signs: Temp Pulse Resp BP Pulse Ox 98.2 F 86 19 126/92 H 100 06/19/19 16:12 06/19/19 16:12 06/19/19 16:12 06/19/19 16:12 06/19/19 16:12 Intake & Output 06/18/19 06/19/19 06/20/19 06:59 06:59 06:59 Intake Total 480 955 470 Output Total 1100 1100 900 Balance -620 -145 -430 Weight 66.8 kg 70 kg 70 kg General appearance: PRESENT: no acute distress, cooperative, hard of hearing, well-developed, well-nourished, other - overwight Head exam: PRESENT: atraumatic, normocephalic Eye exam: PRESENT: conjunctiva pink, EOMI, PERRLA. ABSENT: scleral icterus Mouth exam: PRESENT: moist, tongue midline Respiratory exam: PRESENT: clear to auscultation samaria, symmetrical, unlabored, other - BiPAP/NC. ABSENT: rales, rhonchi, wheezes Cardiovascular exam: PRESENT: irregular rhythm, +S1, +S2. ABSENT: diastolic murmur, rubs, systolic murmur Pulses: PRESENT: normal dorsalis pedis pul Vascular exam: PRESENT: normal capillary refill Gentrourinary exam: PRESENT: indwelling catheter Extremities exam: PRESENT: full ROM, pedal edema - Trace BLE. ABSENT: calf tenderness, clubbing Neurological exam: PRESENT: alert, awake, oriented to person, oriented to place, oriented to time, oriented to situation, CN II-XII grossly intact. ABSENT: motor sensory deficit Psychiatric exam: PRESENT: appropriate affect, normal mood. ABSENT: homicidal ideation, suicidal ideation Skin exam: PRESENT: dry, intact, warm. ABSENT: cyanosis, rash Results Laboratory Results: 06/19/19 14:46 06/19/19 04:23 06/19/19 06/19/19 06/19/19 04:23 05:01 08:07 WBC RBC Hgb Hct MCV MCH MCHC RDW Plt Count Carbonic Acid 1.67 H HCO3/H2CO3 Ratio 25:1 ABG pH 7.51 H ABG pCO2 55.4 H ABG pO2 74.2 L ABG HCO3 43.0 H ABG O2 Saturation 95.7 ABG Base Excess 17.8 FiO2 30% Sodium 136.8 L Potassium 3.3 L Chloride 84 L Carbon Dioxide 43 H* Anion Gap 10 BUN 23 H Creatinine 0.58 Est GFR ( Amer) > 60 Glucose 86 Calcium 8.7 Urine Color Urine Appearance Urine pH Ur Specific [place] Urine Protein Urine Glucose (UA) Urine Ketones Urine Blood Urine Nitrite Ur Leukocyte Esterase Urine WBC (Auto) Urine RBC (Auto) Stool Occult Blood POSITIVE 06/19/19 06/19/19 14:46 15:59 WBC 7.7 RBC 3.18 L Hgb 9.8 L Hct 28.8 L MCV 91 MCH 30.8 MCHC 33.9 RDW 15.5 H Plt Count 249 Carbonic Acid HCO3/H2CO3 Ratio ABG pH ABG pCO2 ABG pO2 ABG HCO3 ABG O2 Saturation ABG Base Excess FiO2 Sodium Potassium Chloride Carbon Dioxide Anion Gap BUN Creatinine Est GFR ( Amer) Glucose Calcium Urine Color YELLOW Urine Appearance CLEAR Urine pH 8.0 Ur Specific [place] 1.010 Urine Protein 30 H Urine Glucose (UA) NEGATIVE Urine Ketones TRACE H Urine Blood MODERATE H Urine Nitrite NEGATIVE Ur Leukocyte Esterase TRACE H Urine WBC (Auto) 7 Urine RBC (Auto) 103 Stool Occult Blood 06/16/19 12:00 Catheterized Urine Urine Culture - Final Morganella Morganii 06/16/19 06/16/19 06/17/19 10:15 10:15 04:18 Creatine Kinase 50 Troponin I 0.168 NT-Pro-B Natriuret Pep 3780 H 4040 H 06/18/19 06/19/19 06:25 04:23 Creatine Kinase Troponin I NT-Pro-B Natriuret Pep 5280 H 3570 H Impressions: Chest X-Ray 06/18/19 00:00 IMPRESSION: Improved aeration left lower lobe. Assessment and Plan - Diagnosis (1) Acute and chronic respiratory failure with hypoxia Is this a current diagnosis for this admission?: Yes Plan: Worsened today; now on BiPAP ABG shows hypercapnia; PCO2 79.6. Repeat ABG after BiPAP is improved; PCO2 71.2-> 55.4 Repeat chest x-ray demonstrated improved aeration. Secondary to acute CHF exacerbation. Likely compounded by the patient's significant kyphosis. Patient is admitted to the medical floor on continuous cardiac telemetry. We will provide supplemental oxygen and BiPAP as needed to maintain oxygen saturations. Have asked nursing to utilize BiPAP 3h on/3h off while awake and continuous while sleeping. Management of acute CHF exacerbation as below. (2) Congestive heart failure Qualifiers: Heart failure type: unspecified Heart failure chronicity: acute on chronic Qualified Code(s): I50.9 - Heart failure, unspecified Is this a current diagnosis for this admission?: Yes Plan: Improved; stable vital signs, clear lung sounds, decreased peripheral edema. Likely secondary to uncontrolled A. fib Esmolol is discontinued. Patient was briefly placed on amiodarone which was discontinued 2 weeks ago. Family does report that the patient has had persistent tachycardia since that time. Echocardiogram revealed LVEF 40 to 45% Medications per cardiology team. Metoprolol has been increased to 25 mg twice daily Has been placed on spironolactone. Furosemide has been increased. Daily weights, strict I&O's, Cardiac diet, fluid restricted 2 L daily (3) Rapid atrial fibrillation Is this a current diagnosis for this admission?: Yes Plan: Improved rate control; HR 70-90 Metoprolol increased to 25 mg twice daily Monitor on continuous cardiac telemetry. We will consult the patient's primary hotel clerk, Dr. Gil. Appreciate cardiology's recommendations Coumadin as below. (4) Coronary artery disease Is this a current diagnosis for this admission?: Yes Plan: Continue daily aspirin therapy. Coumadin management as below. Will monitor on continuous cardiac telemetry. Troponin is elevated; however, this is likely secondary to demand mismatch ischemia as the patient presented with an SPO2 of 70% on her baseline oxygen requirement and currently denies chest pain. (5) Supratherapeutic INR Is this a current diagnosis for this admission?: Yes Plan: Corrected. INR 6.43-> 8.36-> 4.95-> 2.23 PO vitamin K 7.5 mg yesterday Follow up PT/INR Pharmacy to dose Coumadin when appropriate to resume. (6) Anticoagulated on Coumadin Is this a current diagnosis for this admission?: Yes Plan: INR is therapeutic today; goal 2-3 for chronic afib Daily PT/INR. Coumadin per pharmacy. (7) Urinary tract infection Qualifiers: Urinary tract infection type: acute cystitis Hematuria presence: with hematuria Qualified Code(s): N30.01 - Acute cystitis with hematuria Is this a current diagnosis for this admission?: Yes Plan: Urinalysis suggestive of UTI. Urine culture shows Morganella morganii She is placed on Rocephin. - Time Time Spent with patient: 25-34 minutes Medications reviewed and adjusted accordingly: Yes Anticipated discharge: Home with Homehealth Within: within 72 hours
[2019-06-19 19:07] LABS: HEMATOCRIT 29.2 % (36.0-47.0); HEMOGLOBIN 9.5 g/dL (12.0-15.5); MEAN CORPUSCULAR HEMOGLOBIN 29.8 pg (27.0-33.4); MEAN CORPUSCULAR HGB CONC 32.5 g/dL (32.0-36.0); MEAN CORPUSCULAR VOLUME 92 fl (80-97); PLATELET COUNT 239 10^3/uL (150-450); RED BLOOD COUNT 3.18 10^6/uL (3.72-5.28); RED CELL DISTRIBUTION WIDTH 15.4 % (11.5-14.0); WHITE BLOOD COUNT 7.8 10^3/uL (4.0-10.5)
[2019-06-19] MEDS: ATORVASTATIN CALCIUM 40 MG TABLET PO SCH (22:23)
[2019-06-19] MEDS: WARFARIN SODIUM 1 MG TABLET PO SCH (22:23)
--- NOTE | 2019-06-19 23:17 | PDOC PROGRESS REPORT ---
Subjective Progress Note for:: 06/19/19 Subjective:: Pt seen this evening with son at bedside. Feeling better, still on bipap. Labs reviewed. Denies CPs, increased SOB, swelling better, still has decreased appetite. Reason For Visit: HEART FAILURE Physical Exam Vital Signs: Temp Pulse Resp BP Pulse Ox 98.2 F 97 20 123/46 L 98 06/19/19 19:59 06/19/19 19:59 06/19/19 19:59 06/19/19 19:59 06/19/19 19:59 Intake & Output 06/18/19 06/19/19 06/20/19 06:59 06:59 06:59 Intake Total 480 955 470 Output Total 1100 1100 900 Balance -620 -145 -430 Weight 66.8 kg 70 kg 70 kg General appearance: PRESENT: no acute distress, well-developed, well-nourished Head exam: PRESENT: atraumatic, normocephalic Respiratory exam: PRESENT: decreased breath sounds. ABSENT: wheezes Cardiovascular exam: PRESENT: irregular rhythm, systolic murmur - 2/6. ABSENT: gallop, rubs GI/Abdominal exam: PRESENT: normal bowel sounds, soft. ABSENT: distended, guarding, mass, organolmegaly, rebound, tenderness Extremities exam: PRESENT: full ROM, pedal edema, other - Trace edema midway up to knees right worse than left. ABSENT: calf tenderness, clubbing Neurological exam: PRESENT: alert, awake, oriented to person, oriented to place, oriented to time, oriented to situation, CN II-XII grossly intact. ABSENT: motor sensory deficit Psychiatric exam: PRESENT: appropriate affect, normal mood. ABSENT: homicidal ideation, suicidal ideation Results Laboratory Results: 06/19/19 18:56 06/19/19 04:23 06/19/19 06/19/19 06/19/19 04:23 05:01 08:07 WBC RBC Hgb Hct MCV MCH MCHC RDW Plt Count Carbonic Acid 1.67 H HCO3/H2CO3 Ratio 25:1 ABG pH 7.51 H ABG pCO2 55.4 H ABG pO2 74.2 L ABG HCO3 43.0 H ABG O2 Saturation 95.7 ABG Base Excess 17.8 FiO2 30% Sodium 136.8 L Potassium 3.3 L Chloride 84 L Carbon Dioxide 43 H* Anion Gap 10 BUN 23 H Creatinine 0.58 Est GFR ( Amer) > 60 Glucose 86 Calcium 8.7 Urine Color Urine Appearance Urine pH Ur Specific [place] Urine Protein Urine Glucose (UA) Urine Ketones Urine Blood Urine Nitrite Ur Leukocyte Esterase Urine WBC (Auto) Urine RBC (Auto) Stool Occult Blood POSITIVE 06/19/19 06/19/19 06/19/19 14:46 15:59 18:56 WBC 7.7 7.8 RBC 3.18 L 3.18 L Hgb 9.8 L 9.5 L Hct 28.8 L 29.2 L MCV 91 92 MCH 30.8 29.8 MCHC 33.9 32.5 RDW 15.5 H 15.4 H Plt Count 249 239 Carbonic Acid HCO3/H2CO3 Ratio ABG pH ABG pCO2 ABG pO2 ABG HCO3 ABG O2 Saturation ABG Base Excess FiO2 Sodium Potassium Chloride Carbon Dioxide Anion Gap BUN Creatinine Est GFR ( Amer) Glucose Calcium Urine Color YELLOW Urine Appearance CLEAR Urine pH 8.0 Ur Specific [place] 1.010 Urine Protein 30 H Urine Glucose (UA) NEGATIVE Urine Ketones TRACE H Urine Blood MODERATE H Urine Nitrite NEGATIVE Ur Leukocyte Esterase TRACE H Urine WBC (Auto) 7 Urine RBC (Auto) 103 Stool Occult Blood 06/16/19 12:00 Catheterized Urine Urine Culture - Final Morganella Morganii 06/16/19 06/16/19 06/17/19 10:15 10:15 04:18 Creatine Kinase 50 Troponin I 0.168 NT-Pro-B Natriuret Pep 3780 H 4040 H 06/18/19 06/19/19 06:25 04:23 Creatine Kinase Troponin I NT-Pro-B Natriuret Pep 5280 H 3570 H Impressions: Chest X-Ray 06/18/19 00:00 IMPRESSION: Improved aeration left lower lobe. Assessment & Plan - Diagnosis (1) Congestive heart failure Qualifiers: Heart failure type: unspecified Heart failure chronicity: acute on chronic Qualified Code(s): I50.9 - Heart failure, unspecified Is this a current diagnosis for this admission?: Yes Plan: NTBNP = 3570 dec from 5280. Cont current meds. RFT remains normal. Lungs improving, needs repeat CXR tomorrow. Cont to follow labs, look to decrease Lasix Saturday or Saturday pending NTBNP. (2) Rapid atrial fibrillation Is this a current diagnosis for this admission?: Yes Plan: HR has remained in 80s-90s on Met[place] tart 50 bid. Cont. Consider Amio low dose at later date. (3) Anticoagulated on Coumadin Is this a current diagnosis for this admission?: Yes Plan: INR 2.23 today, pharmacy has given her 1mg dose today. Agree with Coumadin 1mg, pt now back on Rocephin for UTI and recent Vit K dosing. We planned 2.5mg if under 3.0, however, will wait for INR in AM to change IF needed. First Hg this AM up to 9.8 from 9.7, however, this evening, dec to 9.5. Will need to be followed. (4) Acute and chronic respiratory failure with hypoxia Is this a current diagnosis for this admission?: Yes Plan: Still on bipap per hospitalist, CO2 improving. (5) Troponin level elevated Is this a current diagnosis for this admission?: Yes Plan: TI previously elevated, now that her HF is improving, need to recheck TI in AM. (6) Hypokalemia Is this a current diagnosis for this admission?: Yes Plan: Pt now with hypoK secondary to increased Lasix 80mg bid. On KCl 10 daily, increase to KCl 20 daily for now, reassess daily with BMP
[2019-06-20] MEDS: KETOROLAC TROMETHAMINE INJ/PF 30 MG/1 ML SDV IV PRN ×2 (03:59→11:08)
[2019-06-20 05:45] LABS: HEMATOCRIT 29.2 % (36.0-47.0); HEMOGLOBIN 9.8 g/dL (12.0-15.5); MEAN CORPUSCULAR HEMOGLOBIN 30.5 pg (27.0-33.4); MEAN CORPUSCULAR HGB CONC 33.6 g/dL (32.0-36.0); MEAN CORPUSCULAR VOLUME 91 fl (80-97); PLATELET COUNT 225 10^3/uL (150-450); RED BLOOD COUNT 3.22 10^6/uL (3.72-5.28); RED CELL DISTRIBUTION WIDTH 15.6 % (11.5-14.0); WHITE BLOOD COUNT 6.7 10^3/uL (4.0-10.5)
[2019-06-20 05:54] LABS: INTERNATIONAL RATION (INR) 1.91; PROTHROMBIN TIME 22.1 SEC (11.4-15.4)
[2019-06-20 06:18] LABS: BLOOD UREA NITROGEN 18 mg/dL (7-20); CALCIUM 8.4 mg/dL (8.4-10.2); CHLORIDE 84 mmol/L (98-107); GLUCOSE 89 mg/dL (75-110)
[2019-06-20 06:29] LABS: TROPONIN I 0.103 ng/mL
[2019-06-20 06:33] LABS: ANION GAP 8 (5-19)
[2019-06-20 06:34] LABS: CARBON DIOXIDE 43 mmol/L (22-30)
[2019-06-20] MEDS ORDERED: POTASSIUM CHLORIDE 10 MEQ TABLET.ER PO ONE (08:00)
[2019-06-20] MEDS: BACLOFEN 10 MG TABLET PO PRN ×2 (08:03→22:15)
[2019-06-20] MEDS: POTASSIUM CHLORIDE 20 MEQ/50 ML RTU IV SCH ×2 (08:04→11:00)
[2019-06-20] MEDS: IPRATROPIUM/ALBUTEROL 0.5-2.5 MG/3 ML AMPUL NEB SCH ×2 (08:12→20:29)
--- NOTE | 2019-06-20 10:37 | RADIOLOGY REPORT (SQ) ---
EXAM DESCRIPTION: CHEST SINGLE VIEW COMPLETED DATE/TIME: 06/20/2019 10:15 am REASON FOR STUDY: pulmonary vascular congestion COMPARISON: 06/18/2019 FINDINGS: One-view chest AP portable upright. Hyperinflated lungs. Mild vascular congestion. No new or progressive infiltrates. No pneumothorax. Osteopenic. Stable cardiomediastinal silhouette. TECHNICAL DOCUMENTATION: JOB ID: [id number] Reading location - IP/workstation name: [email or web address]
[2019-06-20] MEDS: EZETIMIBE 10 MG TABLET PO SCH (11:00)
[2019-06-20] MEDS: METOPROLOL TARTRATE 50 MG TABLET PO SCH ×2 (11:01→22:11)
[2019-06-20] MEDS: ASPIRIN 81 MG TABLET, ENT COATED PO SCH (11:01)
[2019-06-20] MEDS: SPIRONOLACTONE 25 MG TABLET PO SCH (11:01)
[2019-06-20] MEDS: ESCITALOPRAM OXALATE 10 MG TABLET PO SCH (11:01)
[2019-06-20] MEDS: POTASSIUM CHLORIDE 10 MEQ TABLET.ER PO SCH (11:02)
[2019-06-20] MEDS: DOCUSATE SODIUM 100 MG CAPSULE PO SCH (11:02)
[2019-06-20] MEDS: CEFTRIAXONE 1 GM/D5W RTU 1 GM/50 ML RTUPB IV SCH (11:02)
[2019-06-20] MEDS: FUROSEMIDE INJ/PF 100 MG/10 ML SDV IV SCH (11:03)
[2019-06-20] MEDS: FUROSEMIDE 80 MG TABLET PO SCH ×2 (11:05→17:04)
[2019-06-20] MEDS ORDERED: (PENDING PHARMACY ID) (Oxycodone Hcl/Acetaminophen [Oxycodone-Acetaminophen 10-325] 1 EACH PO PRN (13:28)
[2019-06-20] MEDS: OXYCODONE-ACETAMINOPHEN 5-325 MG TABLET PO PRN ×2 (14:12→22:12)
[2019-06-20] MEDS: OXYCODONE HCL IR 5 MG TABLET PO PRN ×2 (14:13→22:12)
--- NOTE | 2019-06-20 14:15 | PDOC PROGRESS REPORT ---
Subjective Progress Note for:: 06/20/19 Subjective:: SOFIA MISTRY is a 74 year old female with a past medical history of atrial fibrillation, chronically anticoagulated on Coumadin, CAD, CHF, chronic respiratory failure; on home O2, and obesity who was admitted 06/16/2019 with acute respiratory failure with hypoxia secondary to acute CHF exacerbation. Patient was seen on morning rounds with her son present. She was found resting on bed on BiPAP. She utilizes 3 L/min at home and does have CPAP but admits to being largely noncompliant. She reports continued improved fatigue and dyspnea. BLE edema has resolved. Overall, she is feeling much better. She denies fever, chest pain, palpitations, abdominal pain, nausea and vomiting. Appetite slightly better today. All questions and concerns are addressed. No concerns per family. Reason For Visit: HEART FAILURE Physical Exam Vital Signs: Temp Pulse Resp BP Pulse Ox 98.3 F 94 19 118/58 L 100 06/20/19 11:11 06/20/19 11:11 06/20/19 11:11 06/20/19 11:11 06/20/19 11:11 Intake & Output 06/19/19 06/20/19 06/21/19 06:59 06:59 06:59 Intake Total 955 938 270 Output Total 1100 1350 Balance -145 -412 270 Weight 70 kg 67.2 kg General appearance: PRESENT: no acute distress, cooperative, hard of hearing, well-developed, well-nourished, other - overweight Head exam: PRESENT: atraumatic, normocephalic Eye exam: PRESENT: conjunctiva pink, EOMI, PERRLA. ABSENT: scleral icterus Mouth exam: PRESENT: moist, tongue midline Respiratory exam: PRESENT: clear to auscultation samaria, symmetrical, unlabored. A BSENT: rales, rhonchi, wheezes Cardiovascular exam: PRESENT: irregular rhythm, +S1, +S2. ABSENT: diastolic murmur, rubs, systolic murmur Pulses: PRESENT: normal dorsalis pedis pul Vascular exam: PRESENT: normal capillary refill GI/Abdominal exam: PRESENT: normal bowel sounds, soft. ABSENT: distended, guarding, mass, organolmegaly, rebound, tenderness Rectal exam: PRESENT: deferred Gentrourinary exam: PRESENT: indwelling catheter Extremities exam: PRESENT: full ROM. ABSENT: calf tenderness, clubbing, pedal edema Neurological exam: PRESENT: alert, awake, oriented to person, oriented to place, oriented to time, oriented to situation, CN II-XII grossly intact. ABSENT: motor sensory deficit Psychiatric exam: PRESENT: appropriate affect, normal mood. ABSENT: homicidal ideation, suicidal ideation Skin exam: PRESENT: dry, intact, warm. ABSENT: cyanosis, rash Results Laboratory Results: 06/20/19 05:10 06/20/19 05:10 06/19/19 06/19/19 06/19/19 14:46 15:59 18:56 WBC 7.7 7.8 RBC 3.18 L 3.18 L Hgb 9.8 L 9.5 L Hct 28.8 L 29.2 L MCV 91 92 MCH 30.8 29.8 MCHC 33.9 32.5 RDW 15.5 H 15.4 H Plt Count 249 239 Sodium Potassium Chloride Carbon Dioxide Anion Gap BUN Creatinine Est GFR ( Amer) Glucose Calcium Urine Color YELLOW Urine Appearance CLEAR Urine pH 8.0 Ur Specific [place] 1.010 Urine Protein 30 H Urine Glucose (UA) NEGATIVE Urine Ketones TRACE H Urine Blood MODERATE H Urine Nitrite NEGATIVE Ur Leukocyte Esterase TRACE H Urine WBC (Auto) 7 Urine RBC (Auto) 103 06/20/19 06/20/19 05:10 05:10 WBC 6.7 RBC 3.22 L Hgb 9.8 L Hct 29.2 L MCV 91 MCH 30.5 MCHC 33.6 RDW 15.6 H Plt Count 225 Sodium 135.0 L Potassium 3.0 L* Chloride 84 L Carbon Dioxide 43 H* Anion Gap 8 BUN 18 Creatinine 0.61 Est GFR ( Amer) > 60 Glucose 89 Calcium 8.4 Urine Color Urine Appearance Urine pH Ur Specific [place] Urine Protein Urine Glucose (UA) Urine Ketones Urine Blood Urine Nitrite Ur Leukocyte Esterase Urine WBC (Auto) Urine RBC (Auto) 06/16/19 06/16/19 06/17/19 10:15 10:15 04:18 Creatine Kinase 50 Troponin I 0.168 NT-Pro-B Natriuret Pep 3780 H 4040 H 06/18/19 06/19/19 06/20/19 06:25 04:23 05:10 Creatine Kinase Troponin I 0.103 NT-Pro-B Natriuret Pep 5280 H 3570 H 4060 H Assessment and Plan - Diagnosis (1) Acute and chronic respiratory failure with hypoxia Is this a current diagnosis for this admission?: Yes Plan: Improved. ABG shows hypercapnia; PCO2 79.6. Repeat ABG after BiPAP is improved; PCO2 71.2-> 55.4 Repeat CXR demonstrates continued improvement. Secondary to acute CHF exacerbation. Likely compounded by the patient's significant kyphosis. Patient is admitted to the medical floor on continuous cardiac telemetry. We will provide supplemental oxygen as needed. Will have patient trial her on her home CPAP settings tonight. Management of acute CHF exacerbation as below. (2) Congestive heart failure Qualifiers: Heart failure type: unspecified Heart failure chronicity: acute on chronic Qualified Code(s): I50.9 - Heart failure, unspecified Is this a current diagnosis for this admission?: Yes Plan: Improved; stable vital signs, clear lung sounds, decreased peripheral edema. Likely secondary to uncontrolled A. fib Esmolol is discontinued. Patient was briefly placed on amiodarone which was discontinued 2 weeks ago. Family does report that the patient has had persistent tachycardia since that time. Echocardiogram revealed LVEF 40 to 45% Cardiology is consulted; appreciate their recommendations. Continue Metoprolol and spironolactone. We will transition to oral furosemide 80 mg twice daily. Daily weights, strict I&O's, Cardiac diet, fluid restricted 2 L daily (3) Rapid atrial fibrillation Is this a current diagnosis for this admission?: Yes Plan: Improved rate control; HR 70-90 Metoprolol increased to 25 mg twice daily Monitor on continuous cardiac telemetry. We will consult the patient's primary it associate, Dr. Gil. Appreciate cardiology's recommendations Coumadin as below. (4) Coronary artery disease Is this a current diagnosis for this admission?: Yes Plan: Continue daily aspirin therapy. Coumadin management as below. Will monitor on continuous cardiac telemetry. Troponin is elevated; however, this is likely secondary to demand mismatch ischemia as the patient presented with an SPO2 of 70% on her baseline oxygen requirement and currently denies chest pain. (5) Supratherapeutic INR Is this a current diagnosis for this admission?: Yes Plan: Corrected. (6) Anticoagulated on Coumadin Is this a current diagnosis for this admission?: Yes Plan: INR is therapeutic today; goal 2-3 for chronic afib Daily PT/INR. Coumadin per pharmacy. (7) Urinary tract infection Qualifiers: Urinary tract infection type: acute cystitis Hematuria presence: with hematuria Qualified Code(s): N30.01 - Acute cystitis with hematuria Is this a current diagnosis for this admission?: Yes Plan: Urinalysis suggestive of UTI. Urine culture shows Morganella morganii She is placed on Rocephin; day #2 (8) NILDA (obstructive sleep apnea) Is this a current diagnosis for this admission?: Yes Plan: Supplemental oxygen with CPAP (9) Hypokalemia Is this a current diagnosis for this admission?: Yes Plan: Secondary to IV furosemide. Received oral and IV replacement today. Follow-up chemistry. - Time Time Spent with patient: 35 or more minutes Medications reviewed and adjusted accordingly: Yes Anticipated discharge: Home with Homehealth Within: within 48 hours
[2019-06-20] MEDS: WARFARIN SODIUM 1 MG TABLET PO SCH (22:11)
[2019-06-20] MEDS: ATORVASTATIN CALCIUM 40 MG TABLET PO SCH (22:12)
[2019-06-21 05:36] LABS: PROTHROMBIN TIME 22.1 SEC (11.4-15.4)
[2019-06-21 05:43] LABS: ALBUMIN 2.9 g/dL (3.5-5.0); ALKALINE PHOSPHATASE 82 U/L (38-126); ASPARTATE AMINO TRANSFERASE 42 U/L (14-36); BILIRUBIN,TOTAL 0.6 mg/dL (0.2-1.3); BLOOD UREA NITROGEN 14 mg/dL (7-20); CALCIUM 8.6 mg/dL (8.4-10.2); CHLORIDE 89 mmol/L (98-107); GLUCOSE 97 mg/dL (75-110); POTASSIUM 3.6 mmol/L (3.6-5.0); TOTAL PROTEIN 5.3 g/dL (6.3-8.2)
[2019-06-21 05:57] LABS: ANION GAP 5 (5-19)
[2019-06-21 05:58] LABS: CARBON DIOXIDE 43 mmol/L (22-30)
[2019-06-21] MEDS: IPRATROPIUM/ALBUTEROL 0.5-2.5 MG/3 ML AMPUL NEB SCH ×2 (07:49→20:18)
[2019-06-21] MEDS: OXYCODONE HCL IR 5 MG TABLET PO PRN ×2 (08:02→19:54)
[2019-06-21] MEDS: OXYCODONE-ACETAMINOPHEN 5-325 MG TABLET PO PRN ×2 (08:03→19:54)
[2019-06-21] MEDS: EZETIMIBE 10 MG TABLET PO SCH (10:47)
[2019-06-21] MEDS: ASPIRIN 81 MG TABLET, ENT COATED PO SCH (10:47)
[2019-06-21] MEDS: SPIRONOLACTONE 25 MG TABLET PO SCH (10:47)
[2019-06-21] MEDS: METOPROLOL TARTRATE 50 MG TABLET PO SCH ×2 (10:48→21:20)
[2019-06-21] MEDS: DOCUSATE SODIUM 100 MG CAPSULE PO SCH (10:48)
[2019-06-21] MEDS: ESCITALOPRAM OXALATE 10 MG TABLET PO SCH (10:48)
[2019-06-21] MEDS: POTASSIUM CHLORIDE 10 MEQ TABLET.ER PO SCH (10:48)
[2019-06-21] MEDS: CEFTRIAXONE 1 GM/D5W RTU 1 GM/50 ML RTUPB IV SCH (10:48)
[2019-06-21] MEDS: FUROSEMIDE 80 MG TABLET PO SCH (11:03)
--- NOTE | 2019-06-21 13:46 | PDOC PROGRESS REPORT ---
Subjective Progress Note for:: 06/21/19 Subjective:: SOFIA MISTRY is a 74 year old female with a past medical history of atrial fibrillation, chronically anticoagulated on Coumadin, CAD, CHF, chronic respiratory failure; on home O2, and obesity who was admitted 06/16/2019 with acute respiratory failure with hypoxia secondary to acute CHF exacerbation. Patient was seen on morning rounds with her son present. She was found resting on supplemental oxygen. She utilizes 3 L/min at home and does have CPAP but admits to being largely noncompliant. Her home CPAP device was brought in last night, however, the patient said that that she did not use it. When asked why, she states that nobody ever reminded her to place her on. The are encouraged to ask for CPAP tonight and nursing was reminded that this is necessary to prove the patient is now stable for discharged home. She reports improved fatigue though with continued poor appetite. BLE edema and dyspnea have resolved. Overall, she is feeling much better. She denies fever, chest pain, palpitations, abdominal pain, nausea and vomiting. All questions and concerns are addressed. No concerns per family. Reason For Visit: HEART FAILURE Physical Exam Vital Signs: Temp Pulse Resp BP Pulse Ox 98.7 F 76 18 120/50 L 100 06/21/19 12:13 06/21/19 12:13 06/21/19 12:13 06/21/19 12:13 06/21/19 12:13 Intake & Output 06/20/19 06/21/19 06/22/19 06:59 06:59 06:59 Intake Total 938 1142 410 Output Total 1350 1600 Balance -412 -458 410 Weight 67.2 kg 69.3 kg General appearance: PRESENT: no acute distress, cooperative, hard of hearing, well-developed, well-nourished Head exam: PRESENT: atraumatic, normocephalic Eye exam: PRESENT: conjunctiva pink, EOMI, PERRLA. ABSENT: scleral icterus Mouth exam: PRESENT: moist, tongue midline Neck exam: ABSENT: carotid bruit, JVD, lymphadenopathy, thyromegaly Respiratory exam: PRESENT: clear to auscultation samaria, symmetrical, unlabored, other - Baseline oxygen requirement.. ABSENT: rales, rhonchi, wheezes Cardiovascular exam: PRESENT: irregular rhythm, +S1, +S2. ABSENT: diastolic murmur, rubs, systolic murmur Pulses: PRESENT: normal dorsalis pedis pul Vascular exam: PRESENT: normal capillary refill GI/Abdominal exam: PRESENT: normal bowel sounds, soft. ABSENT: distended, guarding, mass, organolmegaly, rebound, tenderness Rectal exam: PRESENT: deferred Extremities exam: PRESENT: full ROM, pedal edema - Trace bilaterally. ABSENT: calf tenderness, clubbing Neurological exam: PRESENT: alert, awake, oriented to person, oriented to place, oriented to time, oriented to situation, CN II-XII grossly intact. ABSENT: motor sensory deficit Psychiatric exam: PRESENT: appropriate affect, normal mood. ABSENT: homicidal ideation, suicidal ideation Skin exam: PRESENT: dry, intact, warm. ABSENT: cyanosis, rash Results Laboratory Results: 06/20/19 05:10 06/21/19 04:51 06/21/19 04:51 Sodium 136.7 L Potassium 3.6 Chloride 89 L Carbon Dioxide 43 H* Anion Gap 5 BUN 14 Creatinine 0.66 Est GFR ( Amer) > 60 Glucose 97 Calcium 8.6 Total Bilirubin 0.6 AST 42 H Alkaline Phosphatase 82 Total Protein 5.3 L Albumin 2.9 L 06/16/19 06/16/19 06/17/19 10:15 10:15 04:18 Creatine Kinase 50 Troponin I 0.168 NT-Pro-B Natriuret Pep 3780 H 4040 H 06/18/19 06/19/19 06/20/19 06:25 04:23 05:10 Creatine Kinase Troponin I 0.103 NT-Pro-B Natriuret Pep 5280 H 3570 H 4060 H 06/21/19 04:51 Creatine Kinase Troponin I NT-Pro-B Natriuret Pep 3350 H Assessment and Plan - Diagnosis (1) Acute and chronic respiratory failure with hypoxia Is this a current diagnosis for this admission?: Yes Plan: Acute failure has resolved. Patient has returned to her baseline oxygen requirement. ABG shows hypercapnia; PCO2 79.6. Repeat ABG after BiPAP is improved; PCO2 71.2-> 55.4 Repeat CXR demonstrates continued improvement. Secondary to acute CHF exacerbation. Likely compounded by the patient's significant kyphosis and NILDA. Patient is admitted to the medical floor on continuous cardiac telemetry. We will provide supplemental oxygen as needed. Will have patient trial her on her home CPAP settings tonight. Management of acute CHF exacerbation as below. (2) Congestive heart failure Qualifiers: Heart failure type: unspecified Heart failure chronicity: acute on chronic Qualified Code(s): I50.9 - Heart failure, unspecified Is this a current diagnosis for this admission?: Yes Plan: Improved; stable vital signs, clear lung sounds, decreased peripheral edema. Likely secondary to uncontrolled A. fib Esmolol is discontinued. Patient was briefly placed on amiodarone which was discontinued 2 weeks ago. Family does report that the patient has had persistent tachycardia since that time. Echocardiogram revealed LVEF 40 to 45% Cardiology is consulted; appreciate their recommendations. Continue Metoprolol and spironolactone. Decrease to oral furosemide 80 mg daily. Daily weights, strict I&O's, Cardiac diet, fluid restricted 2 L daily (3) Rapid atrial fibrillation Is this a current diagnosis for this admission?: Yes Plan: Improved rate control; HR 70-90 Metoprolol increased to 25 mg twice daily Monitor on continuous cardiac telemetry. We will consult the patient's primary loss prevention and safety manager, Dr. Gil. Appreciate cardiology's recommendations Coumadin as below. (4) Coronary artery disease Is this a current diagnosis for this admission?: Yes Plan: Continue daily aspirin therapy. Coumadin management as below. Will monitor on continuous cardiac telemetry. Troponin is elevated; however, this is likely secondary to demand mismatch ischemia as the patient presented with an SPO2 of 70% on her baseline oxygen requirement and currently denies chest pain. (5) Supratherapeutic INR Is this a current diagnosis for this admission?: Yes Plan: Corrected. (6) Anticoagulated on Coumadin Is this a current diagnosis for this admission?: Yes Plan: INR is therapeutic today; goal 2-3 for chronic afib Daily PT/INR. Coumadin per pharmacy. (7) Urinary tract infection Qualifiers: Urinary tract infection type: acute cystitis Hematuria presence: with hematuria Qualified Code(s): N30.01 - Acute cystitis with hematuria Is this a current diagnosis for this admission?: Yes Plan: Urinalysis suggestive of UTI. Urine culture shows Morganella morganii Received 3 days of Rocephin. (8) NILDA (obstructive sleep apnea) Is this a current diagnosis for this admission?: Yes Plan: Supplemental oxygen with CPAP (9) Hypokalemia Is this a current diagnosis for this admission?: Yes Plan: Replete Follow-up chemistry. - Time Time Spent with patient: 25-34 minutes Medications reviewed and adjusted accordingly: Yes Anticipated discharge: Home with Homehealth Within: within 24 hours
[2019-06-21] MEDS: ATORVASTATIN CALCIUM 40 MG TABLET PO SCH (21:08)
[2019-06-21] MEDS: BACLOFEN 10 MG TABLET PO PRN (21:08)
[2019-06-21] MEDS: WARFARIN SODIUM 1 MG TABLET PO SCH (21:08)
[2019-06-21] MEDS: KETOROLAC TROMETHAMINE INJ/PF 30 MG/1 ML SDV IV PRN (21:25)
[2019-06-22 05:37] LABS: INTERNATIONAL RATION (INR) 2.45
[2019-06-22 05:55] LABS: BLOOD UREA NITROGEN 14 mg/dL (7-20); CALCIUM 8.8 mg/dL (8.4-10.2); CHLORIDE 87 mmol/L (98-107); GLUCOSE 91 mg/dL (75-110); POTASSIUM 3.6 mmol/L (3.6-5.0)
[2019-06-22 06:08] LABS: ANION GAP 9 (5-19)
[2019-06-22 06:09] LABS: CARBON DIOXIDE 41 mmol/L (22-30)
[2019-06-22] MEDS: OXYCODONE HCL IR 5 MG TABLET PO PRN ×2 (06:44→15:36)
[2019-06-22] MEDS: OXYCODONE-ACETAMINOPHEN 5-325 MG TABLET PO PRN ×2 (06:44→14:41)
[2019-06-22] MEDS: IPRATROPIUM/ALBUTEROL 0.5-2.5 MG/3 ML AMPUL NEB SCH (08:57)
[2019-06-22] MEDS: DOCUSATE SODIUM 100 MG CAPSULE PO SCH (09:24)
[2019-06-22] MEDS: POTASSIUM CHLORIDE 10 MEQ TABLET.ER PO SCH (09:24)
[2019-06-22] MEDS: SPIRONOLACTONE 25 MG TABLET PO SCH (09:25)
[2019-06-22] MEDS: METOPROLOL TARTRATE 50 MG TABLET PO SCH (09:25)
[2019-06-22] MEDS: ESCITALOPRAM OXALATE 10 MG TABLET PO SCH (09:31)
[2019-06-22] MEDS: ASPIRIN 81 MG TABLET, ENT COATED PO SCH (09:32)
[2019-06-22] MEDS: EZETIMIBE 10 MG TABLET PO SCH (09:32)
[2019-06-22] MEDS: FUROSEMIDE 80 MG TABLET PO SCH (09:33)
[2019-06-22] MEDS: BACLOFEN 10 MG TABLET PO PRN (11:36)
[2019-06-22 14:37] LABS: HEMATOCRIT 27.6 % (36.0-47.0); HEMOGLOBIN 9.1 g/dL (12.0-15.5); MEAN CORPUSCULAR HEMOGLOBIN 30.4 pg (27.0-33.4); MEAN CORPUSCULAR HGB CONC 33.1 g/dL (32.0-36.0); MEAN CORPUSCULAR VOLUME 92 fl (80-97); PLATELET COUNT 221 10^3/uL (150-450); RED BLOOD COUNT 3.01 10^6/uL (3.72-5.28); RED CELL DISTRIBUTION WIDTH 15.5 % (11.5-14.0); WHITE BLOOD COUNT 6.6 10^3/uL (4.0-10.5)
[2019-06-22 15:46] VITALS: BP 110/52
--- NOTE | 2019-06-24 14:28 | PDOC DISCHARGE SUMMARY ---
Impression - Admit/DC Date/PCP Admission Date/Primary Care Provider: 06/16/19 13:41 KRUPA VANCE PA-C Discharge Date: 06/22/19 - Discharge Diagnosis (1) Acute and chronic respiratory failure with hypoxia Is this a current diagnosis for this admission?: Yes (2) Congestive heart failure Is this a current diagnosis for this admission?: Yes (3) Rapid atrial fibrillation Is this a current diagnosis for this admission?: Yes (4) Coronary artery disease Is this a current diagnosis for this admission?: Yes (5) Supratherapeutic INR Is this a current diagnosis for this admission?: Yes (6) Anticoagulated on Coumadin Is this a current diagnosis for this admission?: Yes (7) Urinary tract infection Is this a current diagnosis for this admission?: Yes (8) NILDA (obstructive sleep apnea) Is this a current diagnosis for this admission?: Yes (9) Hypokalemia Is this a current diagnosis for this admission?: Yes - Additional Information Resuscitation Status: Do Not Resuscitate Discharge Diet: Cardiac Discharge Activity: Activity As Tolerated, Balance Activity w/Rest, Weigh Daily Referrals: KRUPA VANCE PA-C [Primary Care Provider] - 06/29/19 9:15 am Prescriptions: Spironolactone [Aldactone 25 mg Tablet] 25 mg PO DAILY #30 tablet Aspirin [Ecotrin 81 mg EC Tablet] 81 mg PO DAILY #30 tabec Potassium Chloride [Klor-Con 10 Meq Tablet ER] 20 meq PO DAILY #60 tablet.er Furosemide [Lasix 80 mg Tablet] 80 mg PO DAILY #30 tablet Metoprolol Tartrate [Lopressor 50 mg Tablet] 50 mg PO Q12 #60 tablet Home Medications: Atorvastatin Calcium [Lipitor 40 mg Tablet] 40 mg PO QHS 01/08/12 Baclofen [Baclofen 10 mg Tablet] 10 mg PO Q8HP PRN 01/08/12 Ezetimibe [Zetia 10 mg Tablet] 10 mg PO DAILY 02/06/13 Cholecalciferol (Vitamin D3) [Vitamin D3 1000 Unit Tablet] 5,000 unit PO DAILY 06/16/19 Escitalopram Oxalate [Lexapro 10 mg Tablet] 10 mg PO DAILY 06/16/19 Oxycodone HCl/Acetaminophen [Oxycodone-Acetaminophen 10-325] 1 each PO Q8HP PRN 06/16/19 Oxycodone Myristate [Xtampza ER] 9 mg PO BID 06/16/19 Aspirin [Ecotrin 81 mg EC Tablet] 81 mg PO DAILY #30 tabec 06/22/19 Furosemide [Lasix 80 mg Tablet] 80 mg PO DAILY #30 tablet 06/22/19 Metoprolol Tartrate [Lopressor 50 mg Tablet] 50 mg PO Q12 #60 tablet 06/22/19 Potassium Chloride [Klor-Con 10 Meq Tablet ER] 20 meq PO DAILY #60 tablet.er 06/22/19 Spironolactone [Aldactone 25 mg Tablet] 25 mg PO DAILY #30 tablet 06/22/19 Warfarin Sodium [Coumadin 1 mg Tablet] 1 mg PO QHS tablet 06/22/19 History of Present Illiness History of Present Illness: SOFIA MISTRY is a 74 year old female with a past medical history of atrial fibrillation, chronically anticoagulated on Coumadin, CAD, CHF, chronic respiratory failure; on home O2, and obesity who presented to the emergency department today with a complaint of sudden onset shortness of breath. Patient was recently discharged from [facility] where she received treatment for urinary tract infection and atrial fibrillation RVR. She was briefly placed on amiodarone but was instructed to discontinue by her primary assessment services manager, Dr. Camp. She has been off amiodarone for 2 weeks and has had a persistently elevated heart rate since that time. Further evaluation in the emergency department revealed atrial fibrillation RVR with a heart rate 1 15-1 20, labile blood pressures, and initial hypoxia of 70% on her baseline oxygen requirement. Laboratory evaluation revealed baseline anemia with a hemoglobin of 10.2, supratherapeutic INR at 6.43, elevated bicarb of 41, baseline proBNP of 3000, troponin of 0.168 (likely secondary to demand ischemia, and urinalysis suggestive of UTI. Chest x-ray showed vascular congestion. She was provided IV furosemide, Rocephin, and placed on BiPAP. She was briefly placed on an esmolol drip for A. fib RVR, however, this was discontinued as it made minimal difference to her heart rate. She is referred to the hospitalist service for admission and management of the above-stated complaints and findings. Hospital Course Hospital Course: (1) Acute and chronic respiratory failure with hypoxia Acute failure has resolved. Patient has returned to her baseline oxygen requirement. Did well with CPAP overnight. ABG shows hypercapnia; PCO2 79.6. Repeat ABG after BiPAP is improved; PCO2 71.2-> 55.4 Repeat CXR demonstrates continued improvement. Secondary to acute CHF exacerbation. Likely compounded by the patient's significant kyphosis and NILDA. Patient was admitted to the medical floor on continuous cardiac telemetry. She was provided supplemental oxygen as needed. Initially placed on BiPAP. Her home CPAP device was brought in; trialled overnight with continued improvement. Strongly encouraged to continue compliant CPAP use at home following discharge. Management of acute CHF exacerbation as below. (2) Congestive heart failure Resolved; stable vital signs, clear lung sounds, edema has resolved. proBNP trending down, CXR shows improvement of vascular congestion. On her baseline oxygen and CPAP requirement. Likely secondary to uncontrolled A. fib Patient was briefly placed on amiodarone which was discontinued 2 weeks ago. Family does report that the patient has had persistent tachycardia since that time. Echocardiogram revealed LVEF 40 to 45% Cardiology was consulted; appreciate their assistance. Continue Metoprolol and spironolactone. Initially received IV furosemide for diuresis. Excellent urinary output. Wt down ~ 12 kg. She was gradually weaned to p.o. furosemide 80 mg daily (increase from home dose of 40mg/80mg every other day). She is recommended to Cardiac diet, fluid restricted 2 L daily Follow up with established assessment services manager at earliest available appointment. (3) Rapid atrial fibrillation Resolved; HR 70-90 Metoprolol increased to 25 mg twice daily Patient's primary assessment services manager was consulted; appreciate their assistance. Coumadin as below. (4) Coronary artery disease Continue daily aspirin therapy. Coumadin management as below. Troponin was elevated; however, this is likely secondary to demand mismatch ischemia as the patient presented with an SPO2 of 70% on her baseline oxygen requirement and currently denies chest pain. (5) Supratherapeutic INR Corrected. (6) Anticoagulated on Coumadin INR is therapeutic today; goal 2-3 for chronic afib Resume outpatient medication and monitoring. (7) Urinary tract infection Urinalysis suggestive of UTI. Urine culture shows Morganella morganii Received 3 days of Rocephin. (8) NILDA (obstructive sleep apnea) Supplemental oxygen with CPAP (9) Hypokalemia Replete Follow-up chemistry. Physical Exam Vital Signs: Temp Pulse Resp BP Pulse Ox 98.3 F 60 16 110/52 L 98 06/22/19 18:22 06/22/19 18:22 06/22/19 18:22 06/22/19 18:22 06/22/19 18:22 Intake & Output 06/23/19 06/24/19 06/25/19 06:59 06:59 06:59 Intake Total 490 Output Total 350 Balance 140 General appearance: PRESENT: no acute distress, cooperative, hard of hearing, well-developed, well-nourished Head exam: PRESENT: atraumatic, normocephalic Eye exam: PRESENT: conjunctiva pink, EOMI, PERRLA. ABSENT: scleral icterus Mouth exam: PRESENT: moist, tongue midline Neck exam: ABSENT: carotid bruit, JVD, lymphadenopathy, thyromegaly Respiratory exam: PRESENT: clear to auscultation samaria, symmetrical, unlabored, other - Baseline oxygen requirement; CPAP at night. ABSENT: rales, rhonchi, wheezes Cardiovascular exam: PRESENT: irregular rhythm, +S1, +S2. ABSENT: diastolic murmur, rubs, systolic murmur Pulses: PRESENT: normal dorsalis pedis pul Vascular exam: PRESENT: normal capillary refill GI/Abdominal exam: PRESENT: normal bowel sounds, soft. ABSENT: distended, guarding, mass, organolmegaly, rebound, tenderness Rectal exam: PRESENT: deferred Extremities exam: PRESENT: full ROM. ABSENT: calf tenderness, clubbing, pedal edema, +1 edema Musculoskeletal exam: PRESENT: ambulatory - 35 feet with front wheel walker Neurological exam: PRESENT: alert, awake, oriented to person, oriented to place, oriented to time, oriented to situation, CN II-XII grossly intact. ABSENT: motor sensory deficit Psychiatric exam: PRESENT: appropriate affect, normal mood. ABSENT: homicidal ideation, suicidal ideation Skin exam: PRESENT: dry, intact, warm. ABSENT: cyanosis, rash Results Laboratory Results: WBC 6.6 10^3/uL (4.0-10.5) 06/22/19 14:17 RBC 3.01 10^6/uL (3.72-5.28) L 06/22/19 14:17 Hgb 9.1 g/dL (12.0-15.5) L 06/22/19 14:17 Hct 27.6 % (36.0-47.0) L 06/22/19 14:17 MCV 92 fl (80-97) 06/22/19 14:17 MCH 30.4 pg (27.0-33.4) 06/22/19 14:17 MCHC 33.1 g/dL (32.0-36.0) 06/22/19 14:17 RDW 15.5 % (11.5-14.0) H 06/22/19 14:17 Plt Count 221 10^3/uL (150-450) 06/22/19 14:17 Lymph % (Auto) Not Reportable 06/16/19 10:15 [place] % (Auto) Not Reportable 06/16/19 10:15 Eos % (Auto) Not Reportable 06/16/19 10:15 Baso % (Auto) Not Reportable 06/16/19 10:15 Absolute Neuts (auto) Not Reportable 06/16/19 10:15 Absolute Lymphs (auto) Not Reportable 06/16/19 10:15 Absolute Monos (auto) Not Reportable 06/16/19 10:15 Absolute Eos (auto) Not Reportable 06/16/19 10:15 Absolute Basos (auto) Not Reportable 06/16/19 10:15 Total Counted 100 06/16/19 10:15 Seg Neutrophils % Not Reportable 06/16/19 10:15 Seg Neuts % (Manual) 85 % (42-78) H 06/16/19 10:15 Band Neutrophils % 1 % (3-5) L 06/16/19 10:15 Lymphocytes % (Manual) 4 % (13-45) L 06/16/19 10:15 Monocytes % (Manual) 10 % (3-13) 06/16/19 10:15 Eosinophils % (Manual) 0 % (0-6) 06/16/19 10:15 Basophils % (Manual) 0 % (0-2) 06/16/19 10:15 Abs Neuts (Manual) 5.3 10^3/uL (1.7-8.2) 06/16/19 10:15 Abs Lymphs (Manual) 0.2 10^3/uL (0.5-4.7) L 06/16/19 10:15 Abs Monocytes (Manual) 0.6 10^3/uL (0.1-1.4) 06/16/19 10:15 Absolute Eos (Manual) 0.0 10^3/uL (0.0-0.6) 06/16/19 10:15 Abs Basophils (Manual) 0.0 10^3/uL (0.0-0.2) 06/16/19 10:15 Platelet Comment ADEQUATE 06/16/19 10:15 Anisocytosis SLIGHT 06/16/19 10:15 Tear Drop Cells SLIGHT 06/16/19 10:15 Ovalocytes SLIGHT 06/16/19 10:15 PT 27.0 SEC (11.4-15.4) H 06/22/19 05:02 INR 2.45 06/22/19 05:02 INR (Anticoag Therapy) Cancelled 06/17/19 04:18 Carbonic Acid 1.67 mmol/L (1.05-1.35) H 06/19/19 05:01 HCO3/H2CO3 Ratio 25:1 06/19/19 05:01 ABG pH 7.51 (7.35-7.45) H 06/19/19 05:01 ABG pCO2 55.4 mmHg (35-45) H 06/19/19 05:01 ABG pO2 74.2 mmHg (80-100) L 06/19/19 05:01 ABG HCO3 43.0 mmol/L (20-24) H 06/19/19 05:01 ABG Total CO2 44.7 mmol/L (21-25) H 06/19/19 05:01 ABG O2 Saturation 95.7 % (94-98) 06/19/19 05:01 ABG Base Excess 17.8 mmol/L 06/19/19 05:01 FiO2 30% 06/19/19 05:01 Sodium 137.3 mmol/L (137-145) 06/22/19 05:02 Potassium 3.6 mmol/L (3.6-5.0) 06/22/19 05:02 Chloride 87 mmol/L (98-107) L 06/22/19 05:02 Carbon Dioxide 41 mmol/L (22-30) H* 06/22/19 05:02 Anion Gap 9 (5-19) 06/22/19 05:02 BUN 14 mg/dL (7-20) 06/22/19 05:02 Creatinine 0.70 mg/dL (0.52-1.25) 06/22/19 05:02 Est GFR ( Amer) > 60 (>60) 06/22/19 05:02 Est GFR (MDRD) Non-Af > 60 (>60) 06/22/19 05:02 Glucose 91 mg/dL (75-110) 06/22/19 05:02 Hemoglobin A1c % 5.4 % (4.7-6.0) 06/17/19 04:18 Calcium 8.8 mg/dL (8.4-10.2) 06/22/19 05:02 Magnesium 2.1 mg/dL (1.6-2.3) 06/17/19 04:18 Total Bilirubin 0.6 mg/dL (0.2-1.3) 06/21/19 04:51 Direct Bilirubin 0.0 mg/dL (0.0-0.4) 06/21/19 04:51 Neonat Total Bilirubin Not Reportable 06/21/19 04:51 Neonat Direct Bilirubin Not Reportable 06/21/19 04:51 Neonat Indirect Bili Not Reportable 06/21/19 04:51 AST 42 U/L (14-36) H 06/21/19 04:51 ALT 32 U/L (<35) 06/21/19 04:51 Alkaline Phosphatase 82 U/L (38-126) 06/21/19 04:51 Creatine Kinase 50 U/L (30-135) 06/16/19 10:15 Troponin I 0.103 ng/mL 06/20/19 05:10 NT-Pro-B Natriuret Pep 3350 pg/mL (<125) H 06/21/19 04:51 Total Protein 5.3 g/dL (6.3-8.2) L 06/21/19 04:51 Albumin 2.9 g/dL (3.5-5.0) L 06/21/19 04:51 TSH 4.51 uIU/mL (0.47-4.68) 06/17/19 04:18 Urine Color YELLOW 06/19/19 15:59 Urine Appearance CLEAR 06/19/19 15:59 Urine pH 8.0 (5.0-9.0) 06/19/19 15:59 Ur Specific [place] 1.010 06/19/19 15:59 Urine Protein 30 mg/dL (NEGATIVE) H 06/19/19 15:59 Urine Glucose (UA) NEGATIVE mg/dL (NEGATIVE) 06/19/19 15:59 Urine Ketones TRACE mg/dL (NEGATIVE) H 06/19/19 15:59 Urine Blood MODERATE (NEGATIVE) H 06/19/19 15:59 Urine Nitrite NEGATIVE (NEGATIVE) 06/19/19 15:59 Urine Bilirubin NEGATIVE (NEGATIVE) 06/19/19 15:59 Urine Urobilinogen NEGATIVE mg/dL (<2.0) 06/19/19 15:59 Ur Leukocyte Esterase TRACE (NEGATIVE) H 06/19/19 15:59 Urine WBC (Auto) 7 /HPF 06/19/19 15:59 Urine RBC (Auto) 103 /HPF 06/19/19 15:59 U Hyaline Cast (Auto) 2 /LPF 06/16/19 12:00 Urine Bacteria (Auto) 3+ /HPF 06/16/19 12:00 Urine RBC 5-10 /HPF 06/18/19 14:20 Urine WBC 1-5 /HPF 06/18/19 14:20 Ur Squamous Epith Cells FEW /HPF 06/18/19 14:20 Squamous Epi Cells Auto <1 /HPF 06/19/19 15:59 Urine Bacteria TRACE /HPF 06/18/19 14:20 Urine Mucus TRACE 06/18/19 14:20 Urine Mucus (Auto) RARE /LPF 06/19/19 15:59 Urine Ascorbic Acid NEGATIVE (NEGATIVE) 06/19/19 15:59 Stool Occult Blood POSITIVE (NEGATIVE) 06/19/19 08:07 06/16/19 06/17/19 06/18/19 10:15 04:18 06:25 Troponin I 0.168 NT-Pro-B Natriuret Pep 3780 H 4040 H 5280 H 06/19/19 06/20/19 06/21/19 04:23 05:10 04:51 Troponin I 0.103 NT-Pro-B Natriuret Pep 3570 H 4060 H 3350 H Impressions: Chest X-Ray 06/16/19 10:08 IMPRESSION: Fluid overload or congestive failure Chest X-Ray 06/18/19 00:00 IMPRESSION: Improved aeration left lower lobe. Plan Plan of Treatment: Discharge home, in stable condition, into the care of family members with home health services. She is advised to follow-up with her primary care provider within 1 week and with her established assessment services manager, Dr. Gil, at the earliest available appointment. She is strongly encouraged to continue her CPAP device at home; she is admitted to being largely noncompliant. She is advised to eat a heart healthy diet and fluid restrict to 2 L daily. She is instructed to weigh herself daily and report any weight gain of greater than 2 pounds to her provider. She is advised to take her medications as prescribed. She is encouraged to return to the emergency department as needed for concerning symptoms. Time Spent: Greater than 30 Minutes Stroke Is this a Stroke Patient?: No Acute Heart Failure - Is this a Heart Failure Patient?: Yes Documentation of LVEF assessment?: Yes LVEF < 40%?: No- if no continue to question #3 3. Anticoagulant therapy for permanect/persistent/paraoxysmal Afib or Aflutter: Yes Follow-up Appointment scheduled within 7 days?: Yes
== END 2019-06-22 19:08 | disposition home health service (06) | DRG 291 ==
LOC: ER 09:44 → EH 13:41 → 4S 15:05
PROVIDERS: ADMIT Family Medicine; ATTEND Registered Nurse
DX: I11.0 Hypertensive heart disease with heart failure (principal); J96.21 Acute and chronic respiratory failure with hypoxia; J96.22 Acute and chronic respiratory failure with hypercapnia; N30.01 Acute cystitis with hematuria; I50.23 Acute on chronic systolic (congestive) heart failure; I48.91 Unspecified atrial fibrillation; I25.10 Atherosclerotic heart disease of native coronary artery without angina pectoris; E66.9 Obesity, unspecified; D64.9 Anemia, unspecified; R79.1 Abnormal coagulation profile; B96.4 Proteus (mirabilis) (morganii) as the cause of diseases classified elsewhere; J44.9 Chronic obstructive pulmonary disease, unspecified; Z99.81 Dependence on supplemental oxygen; Z79.01 Long term (current) use of anticoagulants; M19.90 Unspecified osteoarthritis, unspecified site; E87.6 Hypokalemia; G47.33 Obstructive sleep apnea (adult) (pediatric); M40.209 Unspecified kyphosis, site unspecified; Z86.14 Personal history of Methicillin resistant Staphylococcus aureus infection; Z95.1 Presence of aortocoronary bypass graft; Z83.3 Family history of diabetes mellitus; Z82.3 Family history of stroke; Z79.82 Long term (current) use of aspirin; Z79.899 Other long term (current) drug therapy; Z88.8 Allergy status to other drugs, medicaments and biological substances; Z91.040 Latex allergy status; Z91.013 Allergy to seafood; Z88.6 Allergy status to analgesic agent; Z87.891 Personal history of nicotine dependence
CPT/HCPCS: 36415; 36600; 71045; 80048; 80053; 80076; 81001; 82272; 82550; 82803; 83036; 83735; 83880; 84443; 84484; 85025; 85027; 85610; 87086; 87088; 87186; 93005; 93010; 93306; 94640; 94660; 94799; 96365; 96375; 96376; 99291; J0696; J1885; J1940; J2405; J3480; J3490; J7620

== ENCOUNTER 2019-06-23 05:03 | Inpatient (IN) | payer MEDICARE, MEDICAID ==
[2019-06-23] MEDS ORDERED: IPRATROPIUM/ALBUTEROL 0.5-2.5 MG/3 ML AMPUL NEB ONE ×2 (05:18→05:34)
[2019-06-23] MEDS ORDERED: METHYLPREDNISOLONE INJ 125 MG/2 ML SDV IV ONE (05:34)
--- NOTE | 2019-06-23 05:54 | ER Document Report ---
ED Medical Screen (RME) - General Chief Complaint: Breathing Difficulty Stated Complaint: SHORTNESS OF BREATH Primary Care Provider: KRUPA VANCE PA-C [Primary Care Provider] - Follow up as needed Mode of Arrival: Medic Information source: Patient TRAVEL OUTSIDE OF THE [place] IN LAST 30 DAYS: No - HPI Onset: Other - over the last few days Onset/Duration: Gradual Quality of pain: No pain Severity: Moderate Associated Symptoms: Cough (nonproductive) Similar symptoms previously: Yes Recently seen / treated by doctor: Yes - patient was just admitted for pneumonia Notes: 06/23/19 05:54 74 year old female with a history of COPD, CAD, CHF, AFib, HTN, HLD who was recently admitted for pneumonia brought in by EMS for shortness of breath. Patient found to be hypoxic to the 70s prior to ER arrival. Patient was placed on Bipap on ER arrival. Patient will have a full evaluation by the day time provider. - Related Data Allergies/Adverse Reactions: JANUSZ Inhibitors [Janusz Inhibitors] Allergy (Verified 06/16/19 10:31) Rash fish derived [Fish derived] Allergy (Verified 06/16/19 10:31) RASH latex Allergy (Verified 06/16/19 10:31) NSAIDS (Non-Steroidal Anti-Inflamma [Nsaids] Allergy (Verified 06/16/19 10:31) RASH tramadol [Tramadol] Allergy (Verified 06/16/19 10:31) RASH Past Medical History - Past Medical History Cardiac Medical History: Reports: Hx Atrial Fibrillation, Hx Congestive Heart Failure, Hx Coronary Artery Disease, Hx Hypercholesterolemia, Hx Hypertension - MEDS Denies: Hx Heart Attack Pulmonary Medical History: Reports: Hx COPD, Hx Respiratory Failure Denies: Hx Asthma, Hx Bronchitis, Hx Pneumonia Neurological Medical History: Denies: Hx Cerebrovascular Accident, Hx Seizures Endocrine Medical History: Denies: Hx Hypothyroidism Renal/ Medical History: Denies: Hx Peritoneal Dialysis GI Medical History: Denies: Hx Hepatitis, Hx Hiatal Hernia, Hx Ulcer Musculoskeltal Medical History: Reports Hx Arthritis Infectious Medical History: Reports: Hx MRSA. Denies: Hx Hepatitis Past Surgical History: Reports: Hx Cardiac Catheterization, Hx Cardiac Surgery, Hx Coronary Artery Bypass Graft, Hx Open Heart Surgery - CABG X2, VALVE REPLACEMENT, Hx Valve Replacement. Denies: Hx Hysterectomy, Hx Mastectomy, Hx Pacemaker - Immunizations Hx Diphtheria, Pertussis, Tetanus Vaccination: No Physical Exam - Notes Notes: General: well appearing, on bipap, speaking full sentences. Course - Laboratory Result Diagrams: 06/23/19 05:39 06/23/19 05:39 Doctor's Discharge - Discharge Referrals: KRUPA VANCE PA-C [Primary Care Provider] - Follow up as needed
--- NOTE | 2019-06-23 06:12 | RADIOLOGY REPORT (SQ) ---
EXAM DESCRIPTION: XR CHEST 1 VIEW COMPLETED DATE/TME: 06/23/2019 05:30 CLINICAL HISTORY: 74 years, Female, SOB COMPARISON: 06/20/2019 chest NUMBER OF VIEWS: 1 TECHNIQUE: Portable chest LIMITATIONS: None. FINDINGS: Cardiomegaly with stable postsurgical changes. Osteopenia. Diffuse the prominent interstitial changes with small bibasilar effusions. No pneumothorax IMPRESSION: Pulmonary edema pattern with small bibasilar effusions copyright 2011 [facility] [employer] All Rights Reserved
[2019-06-23 06:43] LABS: HEMATOCRIT 32.6 % (36.0-47.0); HEMOGLOBIN 10.6 g/dL (12.0-15.5); MEAN CORPUSCULAR HEMOGLOBIN 29.8 pg (27.0-33.4); MEAN CORPUSCULAR HGB CONC 32.6 g/dL (32.0-36.0); MEAN CORPUSCULAR VOLUME 92 fl (80-97); PLATELET COUNT 265 10^3/uL (150-450); RED BLOOD COUNT 3.56 10^6/uL (3.72-5.28); RED CELL DISTRIBUTION WIDTH 15.5 % (11.5-14.0); WHITE BLOOD COUNT 8.2 10^3/uL (4.0-10.5)
[2019-06-23] MEDS: ALBUTEROL SULFATE 0.083% NEB 2.5 MG/3 ML AMPUL NEB SCH (06:45)
[2019-06-23] MEDS ORDERED: FUROSEMIDE INJ/PF 100 MG/10 ML SDV IV ONE (06:46)
[2019-06-23 06:54] LABS: ABSOLUTE LYMPHOCYTES# (MANUAL) 0.2 10^3/uL (0.5-4.7); ABSOLUTE MONOCYTES # (MANUAL) 0.3 10^3/uL (0.1-1.4); BASOPHILS % (MANUAL) 1 % (0-2); EOSINOPHILS % (MANUAL) 0 % (0-6); LYMPHOCYTES % (MANUAL) 2 % (13-45); MONOCYTES % (MANUAL) 4 % (3-13); SEGMENTED NEUTROPHILS % (MAN) 93 % (42-78); TOTAL CELLS COUNTED 100
[2019-06-23 06:57] LABS: ANISOCYTOSIS SLIGHT; BURR CELLS SLIGHT; OVALOCYTES SLIGHT; PLATELET COMMENT ADEQUATE; POIKILOCYTOSIS SLIGHT; TOXIC GRANULATION 1+
[2019-06-23 07:15] LABS: ALBUMIN 3.7 g/dL (3.5-5.0); ALKALINE PHOSPHATASE 115 U/L (38-126); ASPARTATE AMINO TRANSFERASE 42 U/L (14-36); BILIRUBIN,DIRECT 0.1 mg/dL (0.0-0.4); BILIRUBIN,TOTAL 0.8 mg/dL (0.2-1.3); BLOOD UREA NITROGEN 13 mg/dL (7-20); CALCIUM 9.2 mg/dL (8.4-10.2); CHLORIDE 89 mmol/L (98-107); CREATINE KINASE 37 U/L (30-135); GLUCOSE 118 mg/dL (75-110); POTASSIUM 3.9 mmol/L (3.6-5.0); TOTAL PROTEIN 6.4 g/dL (6.3-8.2)
[2019-06-23 07:22] LABS: ANION GAP 9 (5-19); CARBON DIOXIDE 39 mmol/L (22-30)
[2019-06-23 07:27] LABS: CREATINE KINASE MB 2.89 ng/mL (<4.55); TROPONIN I 0.029 ng/mL
[2019-06-23 07:56] LABS: APPEARANCE,URINE CLEAR; BILIRUBIN,URINE NEGATIVE (NEGATIVE); COLOR,URINE YELLOW; GLUCOSE, URINE NEGATIVE (NEGATIVE); KETONES,URINE TRACE mg/dL (NEGATIVE); LEUKOCYTE ESTERASE,URINE NEGATIVE (NEGATIVE); NITRITE,URINE NEGATIVE (NEGATIVE); PROTEIN,URINE NEGATIVE (NEGATIVE); URINE SPECIFIC GRAVITY 1.008; UROBILINOGEN,URINE NEGATIVE mg/dL (<2.0)
[2019-06-23 08:11] LABS: INTERNATIONAL RATION (INR) 2.71; PROTHROMBIN TIME 29.3 SEC (11.4-15.4)
[2019-06-23] MEDS ORDERED: PROMETHAZINE HCL INJ 25 MG/1 ML VIAL IV PRN (09:05)
[2019-06-23] MEDS: LEVALBUTEROL HCL NEB 1.25 MG/3 ML AMPUL NEB PRN (11:32)
[2019-06-23] MEDS: ACETAMINOPHEN 325 MG TABLET PO PRN (11:55)
[2019-06-23] MEDS: DOCUSATE SODIUM 100 MG CAPSULE PO SCH (11:55)
--- NOTE | 2019-06-23 14:19 | PDOC H&P ---
History of Present Illness Admission Date/PCP: 06/23/19 09:39 KRPUA VANCE PA-C History of Present Illness: SOFIA MISTRY is a 74 year old female was discharged from the hospital last night at 1900 hrs. following a COPD exacerbation. Patient had been in the hospital about 6 days for the complaint. When patient was discharged she went to a local hotel because her son and were sick at home with a cough and cold-like symptoms. Patient states she did not want to be exposed to them. However this morning she woke up and said she was once again short of breath so she came back to the emergency room. She had not had a chance to get any of her discharge medications. Patient is on BiPAP in the emergency room and says she feels much better following her treatments which included Solu-Medrol and DuoNeb. Patient will be readmitted to the hospital for IV diuretics, and IV antibiotics. It does not appear patient was on antibiotics during her last admission, at that time was primarily due to CHF exacerbation. Past Medical History Cardiac Medical History: Reports: Atrial Fibrillation, Congestive Heart Failure, Coronary Artery Disease, Hyperlipidema, Hypertension - MEDS Denies: Myocardial Infarction Pulmonary Medical History: Reports: Chronic Obstructive Pulmonary Disease (COPD), Respiratory Failure Denies: Asthma, Bronchitis, Pneumonia Neurological Medical History: Denies: Seizures Endocrine Medical History: Denies: Hypothyroidism GI Medical History: Denies: Hepatitis, Hiatal Hernia Musculoskeltal Medical History: Reports: Arthritis Psychiatric Medical History: Reports: Depression Hematology: Reports: Anemia Denies: Sickle Cell Disease Infectious Medical History: Reports: Methicillin-Resistant Staph Aureus Past Surgical History Past Surgical History: Reports: Cardiac Catheterization, Coronary Artery Bypass Graft, Valve Replacement Denies: Amputation, Hysterectomy, Mastectomy, Pacemaker Social History Smoking Status: Former Smoker Electronic Cigarette use?: No Frequency of Alcohol Use: None Hx Recreational Drug Use: No - previously Drugs: None Hx Prescription Drug Abuse: No - Advance Directive Resuscitation Status: Full Code Family History Family History: CVA, DM Parental Family History Reviewed: No Children Family History Reviewed: No Sibling(s) Family History Reviewed.: No Medication/Allergy Home Medications: Atorvastatin Calcium [Lipitor 40 mg Tablet] 40 mg PO QHS 01/08/12 Baclofen [Baclofen 10 mg Tablet] 10 mg PO Q8HP PRN 01/08/12 Ezetimibe [Zetia 10 mg Tablet] 10 mg PO DAILY 02/06/13 Cholecalciferol (Vitamin D3) [Vitamin D3 1000 Unit Tablet] 5,000 unit PO DAILY 06/16/19 Escitalopram Oxalate [Lexapro 10 mg Tablet] 10 mg PO DAILY 06/16/19 Oxycodone HCl/Acetaminophen [Oxycodone-Acetaminophen 10-325] 1 each PO Q8HP PRN 06/16/19 Oxycodone Myristate [Xtampza ER] 9 mg PO BID 06/16/19 Aspirin [Ecotrin 81 mg EC Tablet] 81 mg PO DAILY #30 tabec 06/22/19 Furosemide [Lasix 80 mg Tablet] 80 mg PO DAILY #30 tablet 06/22/19 Metoprolol Tartrate [Lopressor 50 mg Tablet] 50 mg PO Q12 #60 tablet 06/22/19 Potassium Chloride [Klor-Con 10 Meq Tablet ER] 20 meq PO DAILY #60 tablet.er 06/22/19 Spironolactone [Aldactone 25 mg Tablet] 25 mg PO DAILY #30 tablet 06/22/19 Warfarin Sodium [Coumadin 1 mg Tablet] 1 mg PO QHS tablet 06/22/19 Allergies/Adverse Reactions: JANUSZ Inhibitors [Janusz Inhibitors] Allergy (Verified 06/23/19 07:17) Rash fish derived [Fish derived] Allergy (Verified 06/23/19 07:17) RASH latex Allergy (Verified 06/23/19 07:17) NSAIDS (Non-Steroidal Anti-Inflamma [Nsaids] Allergy (Verified 06/23/19 07:17) RASH tramadol [Tramadol] Allergy (Verified 06/23/19 07:17) RASH Review of Systems Constitutional: ABSENT: chills, fever(s), headache(s), weight gain, weight loss Cardiovascular: PRESENT: dyspnea on exertion Respiratory: PRESENT: dyspnea Neurological: ABSENT: abnormal gait, abnormal speech, confusion, dizziness, focal weakness, syncope Psychiatric: ABSENT: anxiety, depression, homidical ideation, suicidal ideation Physical Exam Vital Signs: Temp Pulse Resp BP Pulse Ox 98.0 F 125 H 22 H 138/59 H 99 06/23/19 10:56 06/23/19 10:56 06/23/19 10:56 06/23/19 10:56 06/23/19 10:56 Intake & Output 06/22/19 06/23/19 06/24/19 06:59 06:59 06:59 Intake Total 240 Output Total 1600 Balance -1360 Weight 81.6 kg General appearance: PRESENT: mild distress, other - Respiratory Respiratory exam: PRESENT: rales, wheezes Cardiovascular exam: PRESENT: RRR. ABSENT: diastolic murmur, rubs, systolic murmur Neurological exam: PRESENT: altered, other - Patient falls asleep quickly but will answer questions appropriately Psychiatric exam: PRESENT: appropriate affect, normal mood. ABSENT: homicidal ideation, suicidal ideation Results Laboratory Results: 06/23/19 05:39 06/23/19 06:38 06/23/19 06/23/19 06/23/19 05:39 05:39 06:38 WBC 8.2 RBC 3.56 L Hgb 10.6 L Hct 32.6 L MCV 92 MCH 29.8 MCHC 32.6 RDW 15.5 H Plt Count 265 Seg Neutrophils % Not Reportable Sodium Cancelled 137.2 Potassium Cancelled 3.9 Chloride Cancelled 89 L Carbon Dioxide Cancelled 39 H Anion Gap Cancelled 9 BUN Cancelled 13 Creatinine Cancelled 0.60 Est GFR ( Amer) Cancelled > 60 Est GFR (Non-Af Amer) Cancelled Glucose Cancelled 118 H Calcium Cancelled 9.2 Total Bilirubin Cancelled 0.8 AST Cancelled 42 H Alkaline Phosphatase Cancelled 115 Total Protein Cancelled 6.4 Albumin Cancelled 3.7 Urine Color Urine Appearance Urine pH Ur Specific [place] Urine Protein Urine Glucose (UA) Urine Ketones Urine Blood Urine Nitrite Ur Leukocyte Esterase Urine WBC (Auto) Urine RBC (Auto) 06/23/19 07:42 WBC RBC Hgb Hct MCV MCH MCHC RDW Plt Count Seg Neutrophils % Sodium Potassium Chloride Carbon Dioxide Anion Gap BUN Creatinine Est GFR ( Amer) Est GFR (Non-Af Amer) Glucose Calcium Total Bilirubin AST Alkaline Phosphatase Total Protein Albumin Urine Color YELLOW Urine Appearance CLEAR Urine pH 7.0 Ur Specific [place] 1.008 Urine Protein NEGATIVE Urine Glucose (UA) NEGATIVE Urine Ketones TRACE H Urine Blood MODERATE H Urine Nitrite NEGATIVE Ur Leukocyte Esterase NEGATIVE Urine WBC (Auto) 2 Urine RBC (Auto) 7 06/23/19 06/23/19 06/23/19 05:39 06:38 06:38 Creatine Kinase Cancelled 37 CK-MB (CK-2) 2.89 Troponin I 0.029 NT-Pro-B Natriuret Pep 2550 H Impressions: Chest X-Ray 06/23/19 05:30 IMPRESSION: Pulmonary edema pattern with small bibasilar effusions copyright 2011 [employer]- All Rights Reserved Assessment and Plan - Diagnosis (1) Acute and chronic respiratory failure with hypoxia Is this a current diagnosis for this admission?: Yes (2) Anticoagulated on Coumadin Is this a current diagnosis for this admission?: Yes (3) Congestive heart failure Qualifiers: Heart failure type: unspecified Heart failure chronicity: acute on chronic Qualified Code(s): I50.9 - Heart failure, unspecified Is this a current diagnosis for this admission?: Yes (4) Coronary artery disease Is this a current diagnosis for this admission?: Yes (5) NILAD (obstructive sleep apnea) Is this a current diagnosis for this admission?: Yes - Plan Summary Summary: Patient received IV steroids and duo nebs in the emergency room she also receiv ed Lasix 100 mg IV x1. Patient put out 1600 mL's of urine from the Lasix. Going to put her on Zithromax IV and every 40 mg q. 12 hour IV dose of Lasix. Chest x-ray to moderate interpretation shows a possible new right lower lobe infiltrate. - Time Time Spent with patient: 35 or more minutes
--- NOTE | 2019-06-23 14:33 | EKG REPORT ---
SEVERITY:- ABNORMAL ECG - WIDE COMPLEX TACHYCARDIA NONSPECIFIC INTRAVENTRICULAR CONDUCTION DELAY : Confirmed by: Linnea Diaz MD 23-Jun-2019 14:32:49
[2019-06-23] MEDS: AZITHROMYCIN 500 MG in DEXTROSE 5%-WATER 250 ML IV SCH ×2 (15:07→18:01)
[2019-06-23] MEDS ORDERED: METOPROLOL TARTRATE PF/INJ 5 MG/5 ML SDV IV ONE (15:41)
[2019-06-23] MEDS ORDERED: METOPROLOL TARTRATE PF/INJ 5 MG/5 ML SDV IV PRN (15:43)
[2019-06-23] MEDS ORDERED: METOPROLOL TARTRATE 25 MG TABLET ONE (15:57)
[2019-06-23] MEDS ORDERED: METOPROLOL TARTRATE 50 MG TABLET PO ONE (16:00)
[2019-06-23] MEDS: OXYCODONE-ACETAMINOPHEN 5-325 MG TABLET PO PRN (16:14)
[2019-06-23 17:12] LABS: HEMATOCRIT 29.4 % (36.0-47.0); HEMOGLOBIN 9.6 g/dL (12.0-15.5); MEAN CORPUSCULAR HEMOGLOBIN 29.9 pg (27.0-33.4); MEAN CORPUSCULAR HGB CONC 32.6 g/dL (32.0-36.0); MEAN CORPUSCULAR VOLUME 92 fl (80-97); PLATELET COUNT 217 10^3/uL (150-450); RED CELL DISTRIBUTION WIDTH 15.7 % (11.5-14.0); WHITE BLOOD COUNT 6.1 10^3/uL (4.0-10.5)
[2019-06-23] MEDS ORDERED: OXYCODONE MYRISTATE 9 MG PO SCH (18:00)
--- NOTE | 2019-06-23 21:39 | EKG REPORT ---
SEVERITY:- ABNORMAL ECG - ATRIAL FIBRILLATION NONSPECIFIC INTRAVENTRICULAR CONDUCTION DELAY LEFT VENTRICULAR HYPERTROPHY : Confirmed by: Linnea Diaz MD 23-Jun-2019 21:39:09
[2019-06-23] MEDS ORDERED: (PENDING PHARMACY ID) (Warfarin Sodium 1 MG) PO SCH (22:00)
[2019-06-23] MEDS ORDERED: WARFARIN SODIUM 1 MG TABLET PO SCH (22:00)
[2019-06-23] MEDS: FUROSEMIDE INJ/PF 40 MG/4 ML SDV IV SCH (22:16)
[2019-06-23] MEDS: METOPROLOL TARTRATE 50 MG TABLET PO SCH (22:17)
[2019-06-23] MEDS: ATORVASTATIN CALCIUM 40 MG TABLET PO SCH (22:17)
[2019-06-24] MEDS: OXYCODONE-ACETAMINOPHEN 5-325 MG TABLET PO PRN ×4 (00:03→21:48)
[2019-06-24] MEDS: BACLOFEN 10 MG TABLET PO PRN ×2 (04:51→18:26)
[2019-06-24 05:32] LABS: INTERNATIONAL RATION (INR) 3.73; PROTHROMBIN TIME 37.8 SEC (11.4-15.4)
[2019-06-24 05:33] LABS: PARTIAL THROMBOPLASTIN TIME 58.2 SEC (23.5-35.8)
[2019-06-24 05:34] LABS: HEMATOCRIT 27.2 % (36.0-47.0); MEAN CORPUSCULAR HEMOGLOBIN 29.8 pg (27.0-33.4); MEAN CORPUSCULAR HGB CONC 33.1 g/dL (32.0-36.0); MEAN CORPUSCULAR VOLUME 90 fl (80-97); PLATELET COUNT 226 10^3/uL (150-450); RED BLOOD COUNT 3.02 10^6/uL (3.72-5.28); RED CELL DISTRIBUTION WIDTH 16.3 % (11.5-14.0); WHITE BLOOD COUNT 7.1 10^3/uL (4.0-10.5)
[2019-06-24 05:38] LABS: ARTERIAL BLOOD BASE EXCESS 18.4 mmol/L; ARTERIAL BLOOD FIO2 30%; ARTERIAL BLOOD H2CO3 1.44 mmol/L (1.05-1.35); ARTERIAL BLOOD HCO3 42.4 mmol/L (20-24); ARTERIAL BLOOD O2 SATURATION 98.1 % (94-98); ARTERIAL BLOOD PCO2 47.7 mmHg (35-45); ARTERIAL BLOOD PH 7.57 (7.35-7.45); ARTERIAL BLOOD PO2 97.5 mmHg (80-100); ARTERIAL BLOOD TOTAL CO2 43.9 mmol/L (21-25)
[2019-06-24 05:50] LABS: ABSOLUTE LYMPHOCYTES# (MANUAL) 0.4 10^3/uL (0.5-4.7); ABSOLUTE MONOCYTES # (MANUAL) 0.1 10^3/uL (0.1-1.4); BASOPHILS % (MANUAL) 0 % (0-2); BLOOD UREA NITROGEN 17 mg/dL (7-20); CALCIUM 8.7 mg/dL (8.4-10.2); CHLORIDE 83 mmol/L (98-107); EOSINOPHILS % (MANUAL) 0 % (0-6); GLUCOSE 96 mg/dL (75-110); LYMPHOCYTES % (MANUAL) 5 % (13-45); MONOCYTES % (MANUAL) 2 % (3-13); POTASSIUM 3.6 mmol/L (3.6-5.0); SEGMENTED NEUTROPHILS % (MAN) 93 % (42-78); TOTAL CELLS COUNTED 100
[2019-06-24 05:51] LABS: ANISOCYTOSIS 1+; OVALOCYTES SLIGHT; PLATELET COMMENT ADEQUATE
[2019-06-24 05:59] LABS: ANION GAP 9 (5-19)
[2019-06-24 06:00] LABS: CARBON DIOXIDE 44 mmol/L (22-30)
--- NOTE | 2019-06-24 08:40 | ER Document Report ---
Entered by MARY LOBO SCRIBE 06/23/19 0557 Acting as scribe for:VANNA CARVER MD ED Respiratory Problem - General Chief Complaint: Breathing Difficulty Stated Complaint: SHORTNESS OF BREATH Primary Care Provider: KRUPA VANCE PA-C [Primary Care Provider] - Follow up as needed Information source: Patient, Relative, Emergency Med Personnel, [facility] Records Notes: This 74 year old female patient brought the emergency room for shortness of breath. She was admitted to the hospital from 06/16/2019 through 06/22/2019 for CHF exacerbation. She was discharged about 7 PM last night. She stated the [facility], because a relative she was staying with had respiratory illnesses. She reports during the evening she began getting short of breath again and it got progressively worse. EMS picked of the patient she was quite dyspneic. They administered 1 DuoNeb treatment and 125 mg of Solu-Medrol due to her history of COPD. Chest x-ray done on arrival shows congestive heart failure. TRAVEL OUTSIDE OF THE [place] IN LAST 30 DAYS: No - Related Data Allergies/Adverse Reactions: JANUSZ Inhibitors [Janusz Inhibitors] Allergy (Verified 06/23/19 07:17) Rash fish derived [Fish derived] Allergy (Verified 06/23/19 07:17) RASH latex Allergy (Verified 06/23/19 07:17) NSAIDS (Non-Steroidal Anti-Inflamma [Nsaids] Allergy (Verified 06/23/19 07:17) RASH tramadol [Tramadol] Allergy (Verified 06/23/19 07:17) RASH Past Medical History - General Information source: Patient, Relative, Emergency Med Personnel, [facility] Records - Social History Smoking Status: Former Smoker Cigarette use (# per day): No Chew tobacco use (# tins/day): No Smoking Education Provided: No Frequency of alcohol use: None Drug Abuse: None Lives with: Family Family History: CVA, DM - Past Medical History Cardiac Medical History: Reports: Hx Atrial Fibrillation, Hx Congestive Heart Failure, Hx Coronary Artery Disease, Hx Hypercholesterolemia, Hx Hypertension - MEDS Pulmonary Medical History: Reports: Hx COPD, Hx Respiratory Failure Musculoskeletal Medical History: Reports Hx Arthritis Infectious Medical History: Reports: Hx MRSA. Denies: Hx Hepatitis Past Surgical History: Reports: Hx Cardiac Catheterization, Hx Cardiac Surgery, Hx Coronary Artery Bypass Graft, Hx Open Heart Surgery - CABG X2, VALVE REPLACEMENT, Hx Valve Replacement - Immunizations Hx Diphtheria, Pertussis, Tetanus Vaccination: No Hx Pneumococcal Vaccination: 12/08/11 Review of Systems - Review of Systems Constitutional: No symptoms reported EENT: No symptoms reported Cardiovascular: Edema Respiratory: Short of breath Gastrointestinal: No symptoms reported Genitourinary: No symptoms reported Female Genitourinary: Post menopausal Musculoskeletal: No symptoms reported Skin: No symptoms reported Hematologic/Lymphatic: No symptoms reported Neurological/Psychological: No symptoms reported Physical Exam - Vital signs Vitals: Temp Resp 97.9 F 21 H 06/23/19 05:14 06/23/19 05:14 - General General appearance: Appears well, Alert In distress: None Notes: Patient is presently on BiPAP, she states it seems to help. She does not appear to be in any distress at this time, however on arrival she was reported to be an fairly significant respiratory distress. - HEENT Head: Normocephalic, Atraumatic Eyes: Normal Pupils: PERRL Nasal: Normal Pharynx: Normal Neck: Normal - Respiratory Respiratory status: Retractions - Very mild retractions noted at this time. Breath sounds: Rales - Cardiovascular Rhythm: Regular, Tachycardia Heart sounds: Normal auscultation Murmur: No - Abdominal Inspection: Obese Bowel sounds: Normal Tenderness: Nontender - Back Back: Normal - Extremities General upper extremity: Normal inspection General lower extremity: Other - Patient does have compression stockings on with 1+ edema - Neurological Neuro grossly intact: Yes - Psychological Associated symptoms: Normal affect, Normal mood - Skin Skin Temperature: Warm Skin Moisture: Dry Skin Color: Normal Course - Vital Signs Vital signs: Temp Pulse Resp BP Pulse Ox 97.9 F 20 109/76 94 06/23/19 05:14 06/23/19 07:01 06/23/19 07:00 06/23/19 07:01 - Laboratory Result Diagrams: 06/23/19 05:39 06/23/19 06:38 Laboratory results interpreted by me: 06/23/19 06/23/19 06/23/19 05:39 06:38 06:38 RBC 3.56 L Hgb 10.6 L Hct 32.6 L RDW 15.5 H Seg Neuts % (Manual) 93 H Lymphocytes % (Manual) 2 L Abs Lymphs (Manual) 0.2 L Chloride 89 L Carbon Dioxide 39 H Glucose 118 H AST 42 H NT-Pro-B Natriuret Pep 2550 H - Diagnostic Test Radiology reviewed: Image reviewed, Reports reviewed - Chest x-ray shows pulmonary edema with small bibasilar effusions - EKG Interpretation by Me EKG shows normal: Sinus rhythm, [place], Intervals, QRS Complexes, ST-T Waves Rate: Tachycardia - 119 [place]/QRS: IVCD Voltage: Consistant with LVH - Consults AEDEL Toussaint Time consulted: 07:43 Consulted provider: will come to ER Critical Care Note - Critical Care Note Total time excluding time spent on procedures (mins): 35 Discharge - Discharge Clinical Impression: Congestive heart failure (CHF) Qualifiers: Heart failure type: unspecified Heart failure chronicity: acute on chronic Qualified Code(s): I50.9 - Heart failure, unspecified Condition: Good Disposition: ADMITTED INPATIENT Admitting Provider: Lakisha (Hospitalist) Unit Admitted: Telemetry Referrals: KRUPA VANCE PA-C [Primary Care Provider] - Follow up as needed I personally performed the services described in the documentation, reviewed and edited the documentation which was dictated to the scribe in my presence, and it accurately records my words and actions.
[2019-06-24] MEDS: FUROSEMIDE INJ/PF 40 MG/4 ML SDV IV SCH ×2 (10:23→21:43)
[2019-06-24] MEDS: DOCUSATE SODIUM 100 MG CAPSULE PO SCH (10:26)
[2019-06-24] MEDS: ACETAMINOPHEN 325 MG TABLET PO PRN (10:26)
[2019-06-24] MEDS: ASPIRIN 81 MG TABLET, ENT COATED PO SCH (10:26)
[2019-06-24] MEDS: POTASSIUM CHLORIDE 10 MEQ TABLET.ER PO SCH (10:26)
[2019-06-24] MEDS: SPIRONOLACTONE 25 MG TABLET PO SCH (10:27)
[2019-06-24] MEDS: METOPROLOL TARTRATE 50 MG TABLET PO SCH ×2 (10:27→21:47)
[2019-06-24] MEDS: ESCITALOPRAM OXALATE 10 MG TABLET PO SCH (10:27)
[2019-06-24] MEDS: EZETIMIBE 10 MG TABLET PO SCH (10:27)
--- NOTE | 2019-06-24 11:14 | EKG REPORT ---
SEVERITY:- ABNORMAL ECG - A-FLUTTER W/ PREDOM 3:1 AV BLOCK, A-RATE 245 NONSPECIFIC IVCD WITH LAD LEFT VENTRICULAR HYPERTROPHY : Confirmed by: Linnea Diaz MD 24-Jun-2019 11:13:39
--- NOTE | 2019-06-24 11:41 | PDOC PROGRESS REPORT ---
Subjective Progress Note for:: 06/24/19 Reason For Visit: COPD EXACERBATION,CHRONIC ATRIAL FIB,HYPOXIA, 06/23/2022 COPD exacerbation Chronic atrial fib, shortness of breath, CHF, obstructive sleep apnea Physical Exam Vital Signs: Temp Pulse Resp BP Pulse Ox 98.7 F 87 16 90/40 L 100 06/24/19 07:16 06/24/19 07:16 06/24/19 07:16 06/24/19 07:16 06/24/19 07:16 Intake & Output 06/23/19 06/24/19 06/25/19 06:59 06:59 06:59 Intake Total 940 Output Total 2400 Balance -1460 Weight 81.6 kg 83.7 kg General appearance: PRESENT: no acute distress, well-developed, well-nourished Respiratory exam: PRESENT: rales Cardiovascular exam: PRESENT: RRR. ABSENT: diastolic murmur, rubs, systolic murmur Neurological exam: PRESENT: alert, awake, oriented to person, oriented to place, oriented to time, oriented to situation, CN II-XII grossly intact. ABSENT: motor sensory deficit Psychiatric exam: PRESENT: appropriate affect, normal mood. ABSENT: homicidal ideation, suicidal ideation Results Laboratory Results: 06/24/19 04:45 06/24/19 04:45 06/23/19 06/24/19 06/24/19 16:49 04:45 04:45 WBC 6.1 7.1 RBC 3.20 L 3.02 L Hgb 9.6 L 9.0 L Hct 29.4 L 27.2 L MCV 92 90 MCH 29.9 29.8 MCHC 32.6 33.1 RDW 15.7 H 16.3 H Plt Count 217 226 Seg Neutrophils % Not Reportable Carbonic Acid HCO3/H2CO3 Ratio ABG pH ABG pCO2 ABG pO2 ABG HCO3 ABG O2 Saturation ABG Base Excess FiO2 Sodium 135.6 L Potassium 3.6 Chloride 83 L Carbon Dioxide 44 H* Anion Gap 9 BUN 17 Creatinine 0.65 Est GFR ( Amer) > 60 Glucose 96 Calcium 8.7 06/24/19 05:26 WBC RBC Hgb Hct MCV MCH MCHC RDW Plt Count Seg Neutrophils % Carbonic Acid 1.44 H HCO3/H2CO3 Ratio 29:1 ABG pH 7.57 H ABG pCO2 47.7 H ABG pO2 97.5 ABG HCO3 42.4 H ABG O2 Saturation 98.1 H ABG Base Excess 18.4 FiO2 30% Sodium Potassium Chloride Carbon Dioxide Anion Gap BUN Creatinine Est GFR ( Amer) Glucose Calcium 06/23/19 06/23/19 06/23/19 05:39 06:38 06:38 Creatine Kinase Cancelled 37 CK-MB (CK-2) 2.89 Troponin I 0.029 NT-Pro-B Natriuret Pep 2550 H 06/24/19 04:45 Creatine Kinase CK-MB (CK-2) Troponin I NT-Pro-B Natriuret Pep 2920 H Impressions: Chest X-Ray 06/23/19 05:30 IMPRESSION: Pulmonary edema pattern with small bibasilar effusions copyright 2011 [employer] All Rights Reserved Assessment and Plan - Diagnosis (1) Acute and chronic respiratory failure with hypoxia Is this a current diagnosis for this admission?: Yes (2) Anticoagulated on Coumadin Is this a current diagnosis for this admission?: Yes (3) Congestive heart failure Qualifiers: Heart failure type: unspecified Heart failure chronicity: acute on chronic Qualified Code(s): I50.9 - Heart failure, unspecified Is this a current diagnosis for this admission?: Yes (4) Coronary artery disease Is this a current diagnosis for this admission?: Yes (5) NLIDA (obstructive sleep apnea) Is this a current diagnosis for this admission?: Yes - Plan Summary Summary: Patient received IV steroids and duo nebs in the emergency room she also received Lasix 100 mg IV x1. Patient put out 1600 mL's of urine from the Lasix. Going to put her on Zithromax IV and 40 mg q. 12 hour IV dose of Lasix. Chest x-ray to moderate interpretation shows a possible new right lower lobe infiltrate. 06/24/2019 Vital signs are stable temperature 98.7,pulse 87 which is much improved from yesterday's tachycardia, blood pressure is slightly low but normal for her 90/40, oxygen saturations 100% on 2 L nasal cannula Patient states she is feeling much better and clinically looks much better she is obviously less short of breath White blood cell count remains normal 7.1 Chemistry panel shows a slightly elevated carbon dioxide level of 44 on admission it was 39 BNP on admission was 2550 today is 2920 Blood cultures negative x24 hours Patient is on her normal dose of Aldactone 5 mg a day she is now on Lopressor 50 mg twice daily as well as 640 mg IV every 12 hours - Time Time Spent with patient: 25-34 minutes
--- NOTE | 2019-06-24 12:28 | PDOC CONSULTATION ---
Consultation Consult Date: 06/24/19 Provider Consulted: OTTO ALLEN Consult reason:: Tachycardia History of Present Illness Admission Date/PCP: 06/23/19 09:39 KRUPA VANCE PA-C History of Present Illness: SOFIA MISTRY is a 74 year old female was discharged from the hospital 06/22/19 at 1900 hrs. following a COPD/CHF exacerbation. Patient had been in the hospital about 6 days. When patient was discharged she went to a local hotel because her son and were sick at home with a cough and cold-like symptoms. Patient states she did not want to be exposed to them. However this morning she woke up and said she was once again short of breath so she came back to the emergency room. She had not had a chance to get any of her discharge medications. Patient was placed on BiPAP in the emergency room and administered Solu-Medrol and DuoNeb tx which seemed to help. Was readmitted to the hospital for IV diuretics, and IV antibiotics. The patient was not treated for PNA during her last hospitalization but did have IV Rocephin for UTI. Noted was worsening of her CXR from previous admission to day of readmit. Past Medical History Cardiac Medical History: Reports: Atrial Fibrillation, Congestive Heart Failure, Coronary Artery Disease, Hyperlipidema, Hypertension - MEDS Denies: Myocardial Infarction Pulmonary Medical History: Reports: Chronic Obstructive Pulmonary Disease (COPD), Respiratory Failure Denies: Asthma, Bronchitis, Pneumonia Neurological Medical History: Denies: Seizures Endocrine Medical History: Denies: Hypothyroidism GI Medical History: Denies: Hepatitis, Hiatal Hernia Musculoskeltal Medical History: Reports: Arthritis Psychiatric Medical History: Reports: Depression Hematology: Reports: Anemia Denies: Sickle Cell Disease Infectious Medical History: Reports: Methicillin-Resistant Staph Aureus Past Surgical History Past Surgical History: Reports: Cardiac Catheterization, Coronary Artery Bypass Graft, Valve Replacement Denies: Amputation, Hysterectomy, Mastectomy, Pacemaker Social History Lives with: Family Smoking Status: Former Smoker Electronic Cigarette use?: No Frequency of Alcohol Use: None Hx Recreational Drug Use: No - previously Drugs: None Hx Prescription Drug Abuse: No - Advance Directive Resuscitation Status: Full Code Family History Family History: CVA, DM Parental Family History Reviewed: Yes Children Family History Reviewed: Yes Sibling(s) Family History Reviewed.: Yes Medication/Allergy Home Medications: Atorvastatin Calcium [Lipitor 40 mg Tablet] 40 mg PO QHS 01/08/12 Baclofen [Baclofen 10 mg Tablet] 10 mg PO Q8HP PRN 01/08/12 Ezetimibe [Zetia 10 mg Tablet] 10 mg PO DAILY 02/06/13 Cholecalciferol (Vitamin D3) [Vitamin D3 1000 Unit Tablet] 5,000 unit PO DAILY 06/16/19 Escitalopram Oxalate [Lexapro 10 mg Tablet] 10 mg PO DAILY 06/16/19 Oxycodone HCl/Acetaminophen [Oxycodone-Acetaminophen 10-325] 1 each PO Q8HP PRN 06/16/19 Oxycodone Myristate [Xtampza ER] 9 mg PO BID 06/16/19 Aspirin [Ecotrin 81 mg EC Tablet] 81 mg PO DAILY #30 tabec 06/22/19 Furosemide [Lasix 80 mg Tablet] 80 mg PO DAILY #30 tablet 06/22/19 Metoprolol Tartrate [Lopressor 50 mg Tablet] 50 mg PO Q12 #60 tablet 06/22/19 Potassium Chloride [Klor-Con 10 Meq Tablet ER] 20 meq PO DAILY #60 tablet.er 06/22/19 Spironolactone [Aldactone 25 mg Tablet] 25 mg PO DAILY #30 tablet 06/22/19 Warfarin Sodium [Coumadin 1 mg Tablet] 1 mg PO QHS tablet 06/22/19 Allergies/Adverse Reactions: JANUSZ Inhibitors [Janusz Inhibitors] Allergy (Verified 06/23/19 07:17) Rash fish derived [Fish derived] Allergy (Verified 06/23/19 07:17) RASH latex Allergy (Verified 06/23/19 07:17) NSAIDS (Non-Steroidal Anti-Inflamma [Nsaids] Allergy (Verified 06/23/19 07:17) RASH tramadol [Tramadol] Allergy (Verified 06/23/19 07:17) RASH Review of Systems Constitutional: PRESENT: fatigue. ABSENT: chills, fever(s), night sweats Cardiovascular: PRESENT: dyspnea on exertion - improved, edema, orthropnea. ABSENT: chest pain, palpitations Gastrointestinal: ABSENT: abdominal pain, constipation, diarrhea, hematemesis, hematochezia, nausea, vomiting Genitourinary: ABSENT: dysuria, hematuria Musculoskeletal: ABSENT: joint swelling Integumentary: ABSENT: rash, wounds Neurological: ABSENT: abnormal gait, abnormal speech, confusion, dizziness, focal weakness, syncope Psychiatric: ABSENT: anxiety, depression, homidical ideation, suicidal ideation Endocrine: ABSENT: cold intolerance, heat intolerance, polydipsia, polyuria Hematologic/Lymphatic: ABSENT: easy bleeding, easy bruising Physical Exam Vital Signs: Temp Pulse Resp BP Pulse Ox 98.7 F 87 16 90/40 L 100 06/24/19 07:16 06/24/19 07:16 06/24/19 07:16 06/24/19 07:16 06/24/19 07:16 Intake & Output 06/23/19 06/24/19 06/25/19 06:59 06:59 06:59 Intake Total 940 Output Total 2400 Balance -1460 Weight 81.6 kg 83.7 kg General appearance: PRESENT: no acute distress, well-developed, well-nourished Head exam: PRESENT: atraumatic, normocephalic Eye exam: PRESENT: conjunctiva pink, EOMI, PERRLA. ABSENT: scleral icterus Ear exam: PRESENT: normal external ear exam Mouth exam: PRESENT: moist, tongue midline Neck exam: ABSENT: carotid bruit, JVD, lymphadenopathy, thyromegaly Respiratory exam: PRESENT: decreased breath sounds - bilateral bases, unlabored. ABSENT: rhonchi, wheezes Cardiovascular exam: PRESENT: irregular rhythm, systolic murmur - 2/6. ABSENT: diastolic murmur, rubs Pulses: PRESENT: normal dorsalis pedis pul Vascular exam: PRESENT: normal capillary refill GI/Abdominal exam: PRESENT: normal bowel sounds, soft. ABSENT: distended, guar ding, mass, organolmegaly, rebound, tenderness Rectal exam: PRESENT: deferred Extremities exam: PRESENT: full ROM, pedal edema - trace edema left greater than right leg. ABSENT: calf tenderness, clubbing Musculoskeletal exam: PRESENT: full ROM, normal inspection Neurological exam: PRESENT: alert, awake, oriented to person, oriented to place, oriented to time, oriented to situation, CN II-XII grossly intact. ABSENT: motor sensory deficit Psychiatric exam: PRESENT: appropriate affect, normal mood. ABSENT: homicidal ideation, suicidal ideation Skin exam: PRESENT: dry, intact, warm. ABSENT: cyanosis, rash Results Laboratory Results: 06/24/19 04:45 06/24/19 04:45 06/23/19 06/24/19 06/24/19 16:49 04:45 04:45 WBC 6.1 7.1 RBC 3.20 L 3.02 L Hgb 9.6 L 9.0 L Hct 29.4 L 27.2 L MCV 92 90 MCH 29.9 29.8 MCHC 32.6 33.1 RDW 15.7 H 16.3 H Plt Count 217 226 Seg Neutrophils % Not Reportable Carbonic Acid HCO3/H2CO3 Ratio ABG pH ABG pCO2 ABG pO2 ABG HCO3 ABG O2 Saturation ABG Base Excess FiO2 Sodium 135.6 L Potassium 3.6 Chloride 83 L Carbon Dioxide 44 H* Anion Gap 9 BUN 17 Creatinine 0.65 Est GFR ( Amer) > 60 Glucose 96 Calcium 8.7 06/24/19 05:26 WBC RBC Hgb Hct MCV MCH MCHC RDW Plt Count Seg Neutrophils % Carbonic Acid 1.44 H HCO3/H2CO3 Ratio 29:1 ABG pH 7.57 H ABG pCO2 47.7 H ABG pO2 97.5 ABG HCO3 42.4 H ABG O2 Saturation 98.1 H ABG Base Excess 18.4 FiO2 30% Sodium Potassium Chloride Carbon Dioxide Anion Gap BUN Creatinine Est GFR ( Amer) Glucose Calcium 06/23/19 06/23/19 06/23/19 05:39 06:38 06:38 Creatine Kinase Cancelled 37 CK-MB (CK-2) 2.89 Troponin I 0.029 NT-Pro-B Natriuret Pep 2550 H 06/24/19 04:45 Creatine Kinase CK-MB (CK-2) Troponin I NT-Pro-B Natriuret Pep 2920 H Impressions: Chest X-Ray 06/23/19 05:30 IMPRESSION: Pulmonary edema pattern with small bibasilar effusions copyright 2011 [employer]- All Rights Reserved Assessment & Plan - Diagnosis (1) Atrial fibrillation Qualifiers: Atrial fibrillation type: unspecified chronic Qualified Code(s): I48.20 - Chronic atrial fibrillation, unspecified; I48.2 - Chronic atrial fibrillation Is this a current diagnosis for this admission?: Yes Plan: Has been noted to have RFR > 100 two times since ER yesterday, appears she was given IV Metop at least once, otherwise her HR has been CVR on Metop Tart 50 bid. Cont current meds. (2) Congestive heart failure Qualifiers: Heart failure type: unspecified Heart failure chronicity: chronic Qualified Code(s): I50.9 - Heart failure, unspecified Is this a current diagnosis for this admission?: Yes Plan: NTBNP on readmit >2500 to 2920 this morning. No swelling in her legs today, SGOT minimally elevated, improved from previous. She is currently on Lasix 40 bid. BP this AM 90/40, lower than usual for her. Was given large dose IV Lasix 100mg in ER day prior with >1300cc outpt. May need some IV hydration but careful not to overload, however, also of note, Hg is 9.0, has been dropping steadily since her last hospital admission which is certainly affecting her. Looks like her AM dose of Lasix was held due to hypotension. Recommend evaluation by hematology, in mean time, needs stool for occult blood checked. (3) Acute and chronic respiratory failure with hypoxia Is this a current diagnosis for this admission?: Yes Plan: CXR worsened on readmit from previous admission. On abx (azithromycin) for PNA currently. Cont per hospitalist. Recommend pulmology consult (4) H/O mitral valve replacement with mechanical valve Is this a current diagnosis for this admission?: No Plan: On Coumadin for Afib with h/o valvuloplasty. INR yesterday 2.71, today 3.73. Pharmacy managing, careful with abx usage as well as Tylenol use for pain which will be d/c'd today. (5) Anemia Qualifiers: Anemia type: unspecified type Qualified Code(s): D64.9 - Anemia, unspecified Is this a current diagnosis for this admission?: Yes Plan: Pt Hg steadily has been falling from previous admission, now down to 9.0. She is now hypotensive, likely secondary to large Lasix dose in ER 100mg, but concern that steadily decreasing Hg is playing into hypotension. Would ask for hematology consult, also, check stool for occult blood.
[2019-06-24 13:47] LABS: ABSOLUTE RETICS # 0.065 10^6/uL (0.028-0.122); RETICULOCYTE COUNT (AUTO) 2.16 % (0.66-2.85)
[2019-06-24 14:22] LABS: IRON(TIBC) 30.9 ug/dL (37-170)
--- NOTE | 2019-06-24 15:02 | PDOC CONSULTATION ---
Consultation Consult Date: 06/24/19 Attending physician:: OTTO ALLEN Provider Consulted: ERIKA PARK Consult reason:: Anemia History of Present Illness Admission Date/PCP: 06/23/19 09:39 KRUPA VANCE PA-C Patient complains of: Anemia History of Present Illness: SOFIA MISTRY is a 74 year old female with known history of multiple medical conditions including CHF, presents with increasing shortness of breath, she also has had hemoglobin that has been drifting down, I reviewed labs going back for about 2 years, and last year she was running more in the 14 range, at the beginning of this year when labs were drawn they dropped down to 12 and then she has had several admissions, now it is dropped down to the 9 range. She denies any black tarry stool, her last colonoscopy and EGD was done in 2011, she does have history of hemorrhoids as well as diverticulitis. Past Medical History Cardiac Medical History: Reports: Atrial Fibrillation, Congestive Heart Failure, Coronary Artery Disease, Hyperlipidema, Hypertension - MEDS Denies: Myocardial Infarction Pulmonary Medical History: Reports: Chronic Obstructive Pulmonary Disease (COPD), Respiratory Failure Denies: Asthma, Bronchitis, Pneumonia Neurological Medical History: Denies: Seizures Endocrine Medical History: Denies: Hypothyroidism GI Medical History: Denies: Hepatitis, Hiatal Hernia Musculoskeltal Medical History: Reports: Arthritis Psychiatric Medical History: Reports: Depression Hematology: Reports: Anemia Denies: Sickle Cell Disease Infectious Medical History: Reports: Methicillin-Resistant Staph Aureus Past Surgical History Past Surgical History: Reports: Cardiac Catheterization, Coronary Artery Bypass Graft, Valve Replacement Denies: Amputation, Hysterectomy, Mastectomy, Pacemaker Social History Information Source: Patient Lives with: Family Smoking Status: Former Smoker Electronic Cigarette use?: No Frequency of Alcohol Use: None Hx Recreational Drug Use: No - previously Drugs: None Hx Prescription Drug Abuse: No - Advance Directive Resuscitation Status: Full Code Family History Family History: CVA, DM Parental Family History Reviewed: Yes Children Family History Reviewed: Yes Sibling(s) Family History Reviewed.: Yes Medication/Allergy Home Medications: Atorvastatin Calcium [Lipitor 40 mg Tablet] 40 mg PO QHS 01/08/12 Baclofen [Baclofen 10 mg Tablet] 10 mg PO Q8HP PRN 01/08/12 Ezetimibe [Zetia 10 mg Tablet] 10 mg PO DAILY 02/06/13 Cholecalciferol (Vitamin D3) [Vitamin D3 1000 Unit Tablet] 5,000 unit PO DAILY 06/16/19 Escitalopram Oxalate [Lexapro 10 mg Tablet] 10 mg PO DAILY 06/16/19 Oxycodone HCl/Acetaminophen [Oxycodone-Acetaminophen 10-325] 1 each PO Q8HP PRN 06/16/19 Oxycodone Myristate [Xtampza ER] 9 mg PO BID 06/16/19 Aspirin [Ecotrin 81 mg EC Tablet] 81 mg PO DAILY #30 tabec 06/22/19 Furosemide [Lasix 80 mg Tablet] 80 mg PO DAILY #30 tablet 06/22/19 Metoprolol Tartrate [Lopressor 50 mg Tablet] 50 mg PO Q12 #60 tablet 06/22/19 Potassium Chloride [Klor-Con 10 Meq Tablet ER] 20 meq PO DAILY #60 tablet.er 06/22/19 Spironolactone [Aldactone 25 mg Tablet] 25 mg PO DAILY #30 tablet 06/22/19 Warfarin Sodium [Coumadin 1 mg Tablet] 1 mg PO QHS tablet 06/22/19 Allergies/Adverse Reactions: JANUSZ Inhibitors [Janusz Inhibitors] Allergy (Verified 06/23/19 07:17) Rash fish derived [Fish derived] Allergy (Verified 06/23/19 07:17) RASH latex Allergy (Verified 06/23/19 07:17) NSAIDS (Non-Steroidal Anti-Inflamma [Nsaids] Allergy (Verified 06/23/19 07:17) RASH tramadol [Tramadol] Allergy (Verified 06/23/19 07:17) RASH Review of Systems Constitutional: ABSENT: chills, fever(s), headache(s), weight gain, weight loss Eyes: ABSENT: visual disturbances Ears: ABSENT: hearing changes Cardiovascular: ABSENT: chest pain, dyspnea on exertion, edema, orthropnea, palpitations Respiratory: ABSENT: cough, hemoptysis Gastrointestinal: ABSENT: abdominal pain, constipation, diarrhea, hematemesis, hematochezia, nausea, vomiting Genitourinary: ABSENT: dysuria, hematuria Musculoskeletal: ABSENT: joint swelling Integumentary: ABSENT: rash, wounds Neurological: ABSENT: abnormal gait, abnormal speech, confusion, dizziness, focal weakness, syncope Psychiatric: ABSENT: anxiety, depression, homidical ideation, suicidal ideation Endocrine: ABSENT: cold intolerance, heat intolerance, polydipsia, polyuria Hematologic/Lymphatic: ABSENT: easy bleeding, easy bruising Physical Exam Vital Signs: Temp Pulse Resp BP Pulse Ox 98.4 F 81 16 100/54 L 100 06/24/19 11:36 06/24/19 11:36 06/24/19 11:36 06/24/19 11:36 06/24/19 11:36 Intake & Output 06/23/19 06/24/19 06/25/19 06:59 06:59 06:59 Intake Total 940 240 Output Total 2400 125 Balance -1460 115 Weight 81.6 kg 83.7 kg General appearance: PRESENT: no acute distress, well-developed, well-nourished Head exam: PRESENT: atraumatic, normocephalic Eye exam: PRESENT: conjunctiva pink, EOMI, PERRLA. ABSENT: scleral icterus Ear exam: PRESENT: normal external ear exam Mouth exam: PRESENT: moist, tongue midline Neck exam: ABSENT: carotid bruit, JVD, lymphadenopathy, thyromegaly Respiratory exam: PRESENT: clear to auscultation samaria. ABSENT: rales, rhonchi, wheezes Cardiovascular exam: PRESENT: RRR. ABSENT: diastolic murmur, rubs, systolic murmur Pulses: PRESENT: normal dorsalis pedis pul Vascular exam: PRESENT: normal capillary refill GI/Abdominal exam: PRESENT: normal bowel sounds, soft. ABSENT: distended, guarding, mass, organolmegaly, rebound, tenderness Rectal exam: PRESENT: deferred Extremities exam: PRESENT: full ROM. ABSENT: calf tenderness, clubbing, pedal edema Neurological exam: PRESENT: alert, awake, oriented to person, oriented to place, oriented to time, oriented to situation, CN II-XII grossly intact. ABSENT: motor sensory deficit Psychiatric exam: PRESENT: appropriate affect, normal mood. ABSENT: homicidal ideation, suicidal ideation Skin exam: PRESENT: dry, intact, warm. ABSENT: cyanosis, rash Results Laboratory Results: 06/24/19 04:45 06/24/19 04:45 06/23/19 06/24/19 06/24/19 16:49 04:45 04:45 WBC 6.1 7.1 RBC 3.20 L 3.02 L Hgb 9.6 L 9.0 L Hct 29.4 L 27.2 L MCV 92 90 MCH 29.9 29.8 MCHC 32.6 33.1 RDW 15.7 H 16.3 H Plt Count 217 226 Seg Neutrophils % Not Reportable Retic Count (auto) Carbonic Acid HCO3/H2CO3 Ratio ABG pH ABG pCO2 ABG pO2 ABG HCO3 ABG O2 Saturation ABG Base Excess FiO2 Sodium 135.6 L Potassium 3.6 Chloride 83 L Carbon Dioxide 44 H* Anion Gap 9 BUN 17 Creatinine 0.65 Est GFR ( Amer) > 60 Glucose 96 Calcium 8.7 06/24/19 06/24/19 04:45 05:26 WBC RBC Hgb Hct MCV MCH MCHC RDW Plt Count Seg Neutrophils % Retic Count (auto) 2.16 Carbonic Acid 1.44 H HCO3/H2CO3 Ratio 29:1 ABG pH 7.57 H ABG pCO2 47.7 H ABG pO2 97.5 ABG HCO3 42.4 H ABG O2 Saturation 98.1 H ABG Base Excess 18.4 FiO2 30% Sodium Potassium Chloride Carbon Dioxide Anion Gap BUN Creatinine Est GFR ( Amer) Glucose Calcium 06/23/19 06/23/19 06/23/19 05:39 06:38 06:38 Creatine Kinase Cancelled 37 CK-MB (CK-2) 2.89 Troponin I 0.029 NT-Pro-B Natriuret Pep 2550 H 06/24/19 04:45 Creatine Kinase CK-MB (CK-2) Troponin I NT-Pro-B Natriuret Pep 2920 H Impressions: Chest X-Ray 06/23/19 05:30 IMPRESSION: Pulmonary edema pattern with small bibasilar effusions copyright 2011 [employer]- All Rights Reserved Assessment & Plan - Diagnosis (1) Anemia Qualifiers: Anemia type: unspecified type Qualified Code(s): D64.9 - Anemia, unspecified Is this a current diagnosis for this admission?: Yes Plan: Today I sent iron studies, B12 folate levels, reticulocyte count. We will follow. - Time Time Spent: 50 to 70 Minutes
[2019-06-24 15:38] LABS: FOLATE 4.35 ng/mL (>2.76)
[2019-06-24 17:30] LABS: APPEARANCE,URINE CLEAR; BILIRUBIN,URINE NEGATIVE (NEGATIVE); COLOR,URINE YELLOW; GLUCOSE, URINE NEGATIVE (NEGATIVE); KETONES,URINE NEGATIVE (NEGATIVE); LEUKOCYTE ESTERASE,URINE NEGATIVE (NEGATIVE); NITRITE,URINE NEGATIVE (NEGATIVE); PROTEIN,URINE NEGATIVE (NEGATIVE); URINE SPECIFIC GRAVITY 1.018
[2019-06-24] MEDS: AZITHROMYCIN 500 MG in DEXTROSE 5%-WATER 250 ML IV SCH (18:18)
[2019-06-24] MEDS ORDERED: CARBOXYMETHYLCELLULOSE SOD 0.5% 0.4 ML DROPERETTE OU PRN (18:27)
[2019-06-24] MEDS: ATORVASTATIN CALCIUM 40 MG TABLET PO SCH (21:48)
[2019-06-25 06:21] LABS: INTERNATIONAL RATION (INR) 3.85; PROTHROMBIN TIME 38.8 SEC (11.4-15.4)
[2019-06-25 06:38] LABS: BLOOD UREA NITROGEN 18 mg/dL (7-20); CALCIUM 8.9 mg/dL (8.4-10.2); CHLORIDE 89 mmol/L (98-107); GLUCOSE 80 mg/dL (75-110); POTASSIUM 3.3 mmol/L (3.6-5.0)
[2019-06-25 06:50] LABS: ANION GAP 8 (5-19); CARBON DIOXIDE 42 mmol/L (22-30)
--- NOTE | 2019-06-25 07:43 | PDOC PROGRESS REPORT ---
Subjective Progress Note for:: 06/25/19 Subjective:: Due to COVID-19 restrictions, I have only performed a chart review today. Patient has not been examined. Her HGB continues to trend down. Her iron levels are a bit low, her INR is still going up and is supratherapeutic. Stool for occult blood has been ordered, but has not yet been obtained. I will place coumadin on hold until INR is <2.5 then resume at 1 mg po daily. Goal INR 2-3. I will start oral iron, if she can tolerate this. This may be anemia of chronic disease. Her Cr is normal, so she is not a candidate for EPO injections. Currently, no indications for blood transfusion, but may consider this if patient becomes orthostatic. Please call me with any questions or concerns. Reason For Visit: COPD EXACERBATION,CHRONIC ATRIAL FIB,HYPOXIA, Physical Exam Vital Signs: Temp Pulse Resp BP Pulse Ox 98.0 F 70 16 108/64 99 06/25/19 00:00 06/25/19 00:00 06/25/19 00:00 06/25/19 00:00 06/25/19 00:00 Intake & Output 06/24/19 06/25/19 06/26/19 06:59 06:59 06:59 Intake Total 940 700 Output Total 2400 1325 Balance -1460 -625 Weight 83.7 kg 83.3 kg Results Laboratory Results: 06/24/19 04:45 06/25/19 05:24 06/24/19 06/24/19 06/24/19 04:45 04:45 16:51 Retic Count (auto) 2.16 Sodium Potassium Chloride Carbon Dioxide Anion Gap BUN Creatinine Est GFR ( Amer) Glucose Calcium Iron 30.9 L TIBC 333 % Saturation 9 Ferritin 48.30 Vitamin B12 484.0 Folate 4.35 Urine Color YELLOW Urine Appearance CLEAR Urine pH 5.0 Ur Specific [place] 1.018 Urine Protein NEGATIVE Urine Glucose (UA) NEGATIVE Urine Ketones NEGATIVE Urine Blood SMALL H Urine Nitrite NEGATIVE Ur Leukocyte Esterase NEGATIVE Urine WBC (Auto) 5 Urine RBC (Auto) 4 06/25/19 05:24 Retic Count (auto) Sodium 138.5 Potassium 3.3 L Chloride 89 L Carbon Dioxide 42 H* Anion Gap 8 BUN 18 Creatinine 0.66 Est GFR ( Amer) > 60 Glucose 80 Calcium 8.9 Iron TIBC % Saturation Ferritin Vitamin B12 Folate Urine Color Urine Appearance Urine pH Ur Specific [place] Urine Protein Urine Glucose (UA) Urine Ketones Urine Blood Urine Nitrite Ur Leukocyte Esterase Urine WBC (Auto) Urine RBC (Auto) 06/23/19 06/23/19 06/23/19 05:39 06:38 06:38 Creatine Kinase Cancelled 37 CK-MB (CK-2) 2.89 Troponin I 0.029 NT-Pro-B Natriuret Pep 2550 H 06/24/19 06/25/19 04:45 05:24 Creatine Kinase CK-MB (CK-2) Troponin I NT-Pro-B Natriuret Pep 2920 H 2020 H Impressions: Chest X-Ray 06/23/19 05:30 IMPRESSION: Pulmonary edema pattern with small bibasilar effusions copyright 2011 [employer] [facility] [employer]- All Rights Reserved Assessment & Plan - Time Time Spent with patient: Less than 15 minutes
[2019-06-25] MEDS: LEVALBUTEROL HCL NEB 1.25 MG/3 ML AMPUL NEB PRN (09:17)
[2019-06-25] MEDS: DOCUSATE SODIUM 100 MG CAPSULE PO SCH (10:29)
[2019-06-25] MEDS: FUROSEMIDE INJ/PF 40 MG/4 ML SDV IV SCH ×2 (10:29→21:39)
[2019-06-25] MEDS: ASPIRIN 81 MG TABLET, ENT COATED PO SCH (10:29)
[2019-06-25] MEDS: POTASSIUM CHLORIDE 10 MEQ TABLET.ER PO SCH ×3 (10:30→21:40)
[2019-06-25] MEDS: ESCITALOPRAM OXALATE 10 MG TABLET PO SCH (10:30)
[2019-06-25] MEDS: METOPROLOL TARTRATE 50 MG TABLET PO SCH ×2 (10:30→21:55)
[2019-06-25] MEDS: FERROUS SULFATE 325 MG TABLET PO SCH (10:30)
[2019-06-25] MEDS: OXYCODONE-ACETAMINOPHEN 5-325 MG TABLET PO PRN ×3 (10:30→23:42)
[2019-06-25] MEDS: EZETIMIBE 10 MG TABLET PO SCH (10:30)
[2019-06-25] MEDS: SPIRONOLACTONE 25 MG TABLET PO SCH (10:30)
[2019-06-25] MEDS ORDERED: POTASSIUM CHLORIDE 10 MEQ TABLET.ER PO ONE (11:54)
--- NOTE | 2019-06-25 14:56 | PDOC PROGRESS REPORT ---
Subjective Progress Note for:: 06/25/19 Reason For Visit: COPD EXACERBATION,CHRONIC ATRIAL FIB,HYPOXIA, 06/25/2019 She was admitted through the emergency room for shortness of breath, CHF, atrial fib, probable obstructive sleep apnea Physical Exam Vital Signs: Temp Pulse Resp BP Pulse Ox 98.1 F 96 18 100/58 L 97 06/25/19 12:00 06/25/19 12:00 06/25/19 12:00 06/25/19 12:00 06/25/19 12:00 Intake & Output 06/24/19 06/25/19 06/26/19 06:59 06:59 06:59 Intake Total 940 700 240 Output Total 2400 1325 500 Balance -2350 -878 -634 Weight 83.7 kg 83.3 kg 83.3 kg General appearance: PRESENT: mild distress, other - States that she is feeling better with less shortness of breath today Respiratory exam: PRESENT: decreased breath sounds Cardiovascular exam: PRESENT: RRR. ABSENT: diastolic murmur, rubs, systolic murmur Neurological exam: PRESENT: alert, awake, oriented to person, oriented to place, oriented to time, oriented to situation, CN II-XII grossly intact. ABSENT: motor sensory deficit Psychiatric exam: PRESENT: appropriate affect, normal mood. ABSENT: homicidal ideation, suicidal ideation Results Laboratory Results: 06/24/19 04:45 06/25/19 05:24 06/24/19 06/24/19 06/25/19 04:45 16:51 05:24 Sodium 138.5 Potassium 3.3 L Chloride 89 L Carbon Dioxide 42 H* Anion Gap 8 BUN 18 Creatinine 0.66 Est GFR ( Amer) > 60 Glucose 80 Calcium 8.9 Iron 30.9 L TIBC 333 % Saturation 9 Ferritin 48.30 Vitamin B12 484.0 Folate 4.35 Urine Color YELLOW Urine Appearance CLEAR Urine pH 5.0 Ur Specific [place] 1.018 Urine Protein NEGATIVE Urine Glucose (UA) NEGATIVE Urine Ketones NEGATIVE Urine Blood SMALL H Urine Nitrite NEGATIVE Ur Leukocyte Esterase NEGATIVE Urine WBC (Auto) 5 Urine RBC (Auto) 4 06/23/19 06/23/19 06/23/19 05:39 06:38 06:38 Creatine Kinase Cancelled 37 CK-MB (CK-2) 2.89 Troponin I 0.029 NT-Pro-B Natriuret Pep 2550 H 06/24/19 06/25/19 04:45 05:24 Creatine Kinase CK-MB (CK-2) Troponin I NT-Pro-B Natriuret Pep 2920 H 2020 H Impressions: Chest X-Ray 06/23/19 05:30 IMPRESSION: Pulmonary edema pattern with small bibasilar effusions copyright 2011 [employer]- All Rights Reserved Assessment and Plan - Diagnosis (1) Acute and chronic respiratory failure with hypoxia Is this a current diagnosis for this admission?: Yes (2) Anticoagulated on Coumadin Is this a current diagnosis for this admission?: Yes (3) Congestive heart failure Qualifiers: Heart failure type: unspecified Heart failure chronicity: chronic Qualified Code(s): I50.9 - Heart failure, unspecified Is this a current diagnosis for this admission?: Yes (4) Coronary artery disease Is this a current diagnosis for this admission?: Yes (5) NILDA (obstructive sleep apnea) Is this a current diagnosis for this admission?: Yes - Plan Summary Summary: Patient received IV steroids and duo nebs in the emergency room she also received Lasix 100 mg IV x1. Patient put out 1600 mL's of urine from the Lasix. Going to put her on Zithromax IV and 40 mg q. 12 hour IV dose of Lasix. Chest x-ray to moderate interpretation shows a possible new right lower lobe infiltrate. 06/24/2019 Vital signs are stable temperature 98.7,pulse 87 which is much improved from yesterday's tachycardia, blood pressure is slightly low but normal for her 90/40, oxygen saturations 100% on 2 L nasal cannula Patient states she is feeling much better and clinically looks much better she is obviously less short of breath White blood cell count remains normal 7.1 Chemistry panel shows a slightly elevated carbon dioxide level of 44 on admission it was 39 BNP on admission was 2550 today is 2920 Blood cultures negative x24 hours Patient is on her normal dose of Aldactone 25 mg a day she is now on Lopressor 50 mg twice daily as well as Lasix 40 mg IV every 12 hours 06/25/2019 Patient's blood pressure seems to have stabilized around 100/58 She is maintaining a good oxygen saturation above 95% on 1 or 2 L of oxygen per nasal cannula On admission she was requiring 6 L On admission her BNP was 2920 today it is 2019 Potassium has drifted down slightly to 3.3, will add replacement potassium Hemoglobin will be repeated in the morning other labs, will follow trending levels Clinically patient is feeling better and looks better, numbers appear to be stabilizing and her oxygen saturation is improving with less supplemental oxygen Renal functions appear to be tolerating her IV Lasix - Time Time Spent with patient: 25-34 minutes
[2019-06-25] MEDS ORDERED: POTASSIUM CHLORIDE 10 MEQ TABLET.ER PO SCH (15:00)
[2019-06-25 15:46] LABS: ABSOLUTE EOSINOPHILS # (AUTO) 0.1 10^3/uL (0.0-0.6); ABSOLUTE LYMPHOCYTES (AUTO) 0.5 10^3/uL (0.5-4.7); ABSOLUTE MONOCYTES (AUTO) 0.9 10^3/uL (0.1-1.4); ABSOLUTE NEUT (AUTO) 5.2 10^3/uL (1.7-8.2); BASOPHILS % (AUTO) 0.5 % (0-2); EOSINOPHILS % (AUTO) 0.8 % (0-6); HEMATOCRIT 29.2 % (36.0-47.0); HEMOGLOBIN 9.8 g/dL (12.0-15.5); LYMPHOCYTES % (AUTO) 7.9 % (13-45); MEAN CORPUSCULAR HEMOGLOBIN 30.3 pg (27.0-33.4); MEAN CORPUSCULAR HGB CONC 33.6 g/dL (32.0-36.0); MEAN CORPUSCULAR VOLUME 90 fl (80-97); MONOCYTES % (AUTO) 12.9 % (3-13); PLATELET COUNT 235 10^3/uL (150-450); RED BLOOD COUNT 3.24 10^6/uL (3.72-5.28); RED CELL DISTRIBUTION WIDTH 15.6 % (11.5-14.0); SEGMENTED NEUTROPHILS % (AUTO) 77.9 % (42-78); TOTAL CELLS COUNTED % (AUTO) 100 %; WHITE BLOOD COUNT 6.7 10^3/uL (4.0-10.5)
[2019-06-25] MEDS: AZITHROMYCIN 500 MG in DEXTROSE 5%-WATER 250 ML IV SCH (17:27)
[2019-06-25 19:15] LABS: A TYPE INFLUENZA AG NEGATIVE (NEGATIVE); B INFLUENZA AG NEGATIVE (NEGATIVE)
--- NOTE | 2019-06-25 20:32 | PDOC PROGRESS REPORT ---
Subjective Progress Note for:: 06/25/19 Reason For Visit: COPD EXACERBATION,CHRONIC ATRIAL FIB,HYPOXIA, Due to COVID-19 restrictions, this is a chart review. Pt readmitted for RADHA presumably due to PNA vs CHF. Was initially placed on bipap and diuresed in the ER with Lasix IV 100mg. Initial NTBNP 2920, now has decreased to 2020. K fell to 3.3, ordered stat KCl 20meq dose this AM. Hg is beginning to come up, now 9.8. Hematology is following and did add Fe. Pt had hypotension following large diuresis but BP has stabilized and after holding Metoprolol and Lasix yesterday, she has been started back on it. As we expected to see, did have some mildly elevated HR this morning but has returned to good control with resumption of Metoprolol Physical Exam Vital Signs: Temp Pulse Resp BP Pulse Ox 98.3 F 81 18 107/40 L 98 06/25/19 15:21 06/25/19 15:21 06/25/19 15:21 06/25/19 15:21 06/25/19 15:21 Intake & Output 06/24/19 06/25/19 06/26/19 06:59 06:59 06:59 Intake Total 940 950 480 Output Total 2400 1325 500 Balance -1460 -375 -20 Weight 83.7 kg 83.3 kg 83.3 kg Results Laboratory Results: 06/25/19 15:16 06/25/19 05:24 06/25/19 06/25/19 05:24 15:16 WBC 6.7 RBC 3.24 L Hgb 9.8 L Hct 29.2 L MCV 90 MCH 30.3 MCHC 33.6 RDW 15.6 H Plt Count 235 Seg Neutrophils % 77.9 Sodium 138.5 Potassium 3.3 L Chloride 89 L Carbon Dioxide 42 H* Anion Gap 8 BUN 18 Creatinine 0.66 Est GFR ( Amer) > 60 Glucose 80 Calcium 8.9 06/23/19 06/23/19 06/23/19 05:39 06:38 06:38 Creatine Kinase Cancelled 37 CK-MB (CK-2) 2.89 Troponin I 0.029 NT-Pro-B Natriuret Pep 2550 H 06/24/19 06/25/19 04:45 05:24 Creatine Kinase CK-MB (CK-2) Troponin I NT-Pro-B Natriuret Pep 2920 H 2020 H Impressions: Chest X-Ray 06/23/19 05:30 IMPRESSION: Pulmonary edema pattern with small bibasilar effusions copyright 2011 [employer] [facility] [employer]- All Rights Reserved Assessment & Plan - Diagnosis (1) Atrial fibrillation Qualifiers: Atrial fibrillation type: unspecified chronic Qualified Code(s): I48.20 - Chronic atrial fibrillation, unspecified; I48.2 - Chronic atrial fibrillation Is this a current diagnosis for this admission?: Yes Plan: Maintain on Metoprolol 50mg bid (2) Congestive heart failure Qualifiers: Heart failure type: unspecified Heart failure chronicity: chronic Qualified Code(s): I50.9 - Heart failure, unspecified Is this a current diagnosis for this admission?: Yes Plan: Maintain on Lasix 40 bid, her NTBNP at 2020 is lowest it's been since her first admit (3) Acute and chronic respiratory failure with hypoxia Is this a current diagnosis for this admission?: Yes Plan: Per hospitalist, consult for pulmonary ordered (4) H/O mitral valve replacement with mechanical valve Is this a current diagnosis for this admission?: No Plan: INR supratherapeutic, coumadin suppose to be held this evening. (5) Anemia Qualifiers: Anemia type: unspecified type Qualified Code(s): D64.9 - Anemia, unspecified Is this a current diagnosis for this admission?: Yes Plan: Hg improved at 9.8 on Fe per Hem/onc. Appreciate their seeing patient.
[2019-06-25] MEDS: ATORVASTATIN CALCIUM 40 MG TABLET PO SCH (21:40)
[2019-06-26] MEDS: OXYCODONE-ACETAMINOPHEN 5-325 MG TABLET PO PRN ×4 (05:33→23:52)
[2019-06-26 05:55] LABS: INTERNATIONAL RATION (INR) 3.35; PROTHROMBIN TIME 34.7 SEC (11.4-15.4)
[2019-06-26 06:13] LABS: BLOOD UREA NITROGEN 14 mg/dL (7-20); CALCIUM 8.8 mg/dL (8.4-10.2); CHLORIDE 93 mmol/L (98-107); GLUCOSE 87 mg/dL (75-110)
[2019-06-26 06:15] LABS: POTASSIUM 4.1 mmol/L (3.6-5.0)
[2019-06-26 06:20] LABS: ANION GAP 7 (5-19)
[2019-06-26 06:25] LABS: CARBON DIOXIDE 37 mmol/L (22-30)
[2019-06-26] MEDS: SPIRONOLACTONE 25 MG TABLET PO SCH (09:13)
[2019-06-26] MEDS: DOCUSATE SODIUM 100 MG CAPSULE PO SCH (09:13)
[2019-06-26] MEDS: FERROUS SULFATE 325 MG TABLET PO SCH (09:14)
[2019-06-26] MEDS: ESCITALOPRAM OXALATE 10 MG TABLET PO SCH (09:14)
[2019-06-26] MEDS: ASPIRIN 81 MG TABLET, ENT COATED PO SCH (09:14)
[2019-06-26] MEDS: POTASSIUM CHLORIDE 10 MEQ TABLET.ER PO SCH ×2 (09:14→21:30)
[2019-06-26] MEDS: METOPROLOL TARTRATE 50 MG TABLET PO SCH ×2 (09:14→21:34)
[2019-06-26] MEDS: EZETIMIBE 10 MG TABLET PO SCH (09:14)
[2019-06-26] MEDS: FUROSEMIDE INJ/PF 40 MG/4 ML SDV IV SCH ×2 (09:14→21:31)
--- NOTE | 2019-06-26 13:25 | PDOC PROGRESS REPORT ---
Subjective Progress Note for:: 06/26/19 Reason For Visit: COPD EXACERBATION,CHRONIC ATRIAL FIB,HYPOXIA, 06/26/2019 Shortness of breath, CHF, history of atrial fib, anemia Physical Exam Vital Signs: Temp Pulse Resp BP Pulse Ox 98.2 F 101 H 18 100/42 L 99 06/26/19 08:04 06/26/19 08:04 06/26/19 08:04 06/26/19 08:04 06/26/19 09:53 Intake & Output 06/25/19 06/26/19 06/27/19 06:59 06:59 06:59 Intake Total 950 1130 Output Total 1325 2500 Balance -375 -1370 Weight 83.3 kg 82.4 kg General appearance: PRESENT: no acute distress Respiratory exam: PRESENT: clear to auscultation samaria. ABSENT: rales, rhonchi, wheezes Cardiovascular exam: PRESENT: RRR. ABSENT: diastolic murmur, rubs, systolic murmur Neurological exam: PRESENT: alert, awake, oriented to person, oriented to place, oriented to time, oriented to situation, CN II-XII grossly intact. ABSENT: motor sensory deficit Psychiatric exam: PRESENT: appropriate affect, normal mood. ABSENT: homicidal ideation, suicidal ideation Results Laboratory Results: 06/25/19 15:16 06/26/19 05:33 06/25/19 06/26/19 15:16 05:33 WBC 6.7 RBC 3.24 L Hgb 9.8 L Hct 29.2 L MCV 90 MCH 30.3 MCHC 33.6 RDW 15.6 H Plt Count 235 Seg Neutrophils % 77.9 Sodium 136.7 L Potassium 4.1 Chloride 93 L Carbon Dioxide 37 H Anion Gap 7 BUN 14 Creatinine 0.56 Est GFR ( Amer) > 60 Glucose 87 Calcium 8.8 06/23/19 06/23/19 06/23/19 05:39 06:38 06:38 Creatine Kinase Cancelled 37 CK-MB (CK-2) 2.89 Troponin I 0.029 NT-Pro-B Natriuret Pep 2550 H 06/24/19 06/25/19 06/26/19 04:45 05:24 05:33 Creatine Kinase CK-MB (CK-2) Troponin I NT-Pro-B Natriuret Pep 2920 H 2020 H 1950 H Impressions: Chest X-Ray 06/23/19 05:30 IMPRESSION: Pulmonary edema pattern with small bibasilar effusions copyright 2010 [employer]- All Rights Reserved Assessment and Plan - Diagnosis (1) Acute and chronic respiratory failure with hypoxia Is this a current diagnosis for this admission?: Yes (2) Anticoagulated on Coumadin Is this a current diagnosis for this admission?: Yes (3) Congestive heart failure Qualifiers: Heart failure type: unspecified Heart failure chronicity: chronic Qualified Code(s): I50.9 - Heart failure, unspecified Is this a current diagnosis for this admission?: Yes (4) Coronary artery disease Is this a current diagnosis for this admission?: Yes (5) NILDA (obstructive sleep apnea) Is this a current diagnosis for this admission?: Yes (6) Anemia Qualifiers: Anemia type: unspecified type Qualified Code(s): D64.9 - Anemia, unspecified Is this a current diagnosis for this admission?: Yes - Plan Summary Summary: Patient received IV steroids and duo nebs in the emergency room she also received Lasix 100 mg IV x1. Patient put out 1600 mL's of urine from the Lasix. Going to put her on Zithromax IV and 40 mg q. 12 hour IV dose of Lasix. Chest x-ray to moderate interpretation shows a possible new right lower lobe infiltrate. 06/24/2019 Vital signs are stable temperature 98.7,pulse 87 which is much improved from yesterday's tachycardia, blood pressure is slightly low but normal for her 90/40, oxygen saturations 100% on 2 L nasal cannula Patient states she is feeling much better and clinically looks much better she is obviously less short of breath White blood cell count remains normal 7.1 Chemistry panel shows a slightly elevated carbon dioxide level of 44 on admission it was 39 BNP on admission was 2550 today is 2920 Blood cultures negative x24 hours Patient is on her normal dose of Aldactone 25 mg a day she is now on Lopressor 50 mg twice daily as well as Lasix 40 mg IV every 12 hours 06/25/2019 Patient's blood pressure seems to have stabilized around 100/58 She is maintaining a good oxygen saturation above 95% on 1 or 2 L of oxygen per nasal cannula On admission she was requiring 6 L On admission her BNP was 2920 today it is 2019 Potassium has drifted down slightly to 3.3, will add replacement potassium Hemoglobin will be repeated in the morning other labs, will follow trending levels Clinically patient is feeling better and looks better, numbers appear to be stabilizing and her oxygen saturation is improving with less supplemental oxygen Renal functions appear to be tolerating her IV Lasix 06/26/2019 Patient states she is feeling much better, never got less shortness of breath Pulse is averaging around 90 Blood pressure approximately 100/50 Oxygen saturations are in the upper 90s on 2 L nasal cannula Patient's hemoglobin is back to up to 9.8 INR is back in the therapeutic range 3.35 Name continues to remain normal 0.56 BNP is trending downward slowly Medications appear to be appropriate Discharge planning has mentioned the possibility of [place] [facility] facility I will speak to the patient about this - Time Time Spent with patient: 25-34 minutes
[2019-06-26 16:41] LABS: APPEARANCE,URINE CLEAR; BILIRUBIN,URINE NEGATIVE (NEGATIVE); COLOR,URINE YELLOW; GLUCOSE, URINE NEGATIVE (NEGATIVE); KETONES,URINE NEGATIVE (NEGATIVE); LEUKOCYTE ESTERASE,URINE NEGATIVE (NEGATIVE); NITRITE,URINE NEGATIVE (NEGATIVE); PROTEIN,URINE NEGATIVE (NEGATIVE); URINE SPECIFIC GRAVITY 1.011
[2019-06-26] MEDS: AZITHROMYCIN 500 MG in DEXTROSE 5%-WATER 250 ML IV SCH (17:20)
[2019-06-26 18:04] LABS: HEMATOCRIT 32.2 % (36.0-47.0); HEMOGLOBIN 10.5 g/dL (12.0-15.5); MEAN CORPUSCULAR HEMOGLOBIN 29.9 pg (27.0-33.4); MEAN CORPUSCULAR HGB CONC 32.6 g/dL (32.0-36.0); MEAN CORPUSCULAR VOLUME 92 fl (80-97); PLATELET COUNT 241 10^3/uL (150-450); RED BLOOD COUNT 3.52 10^6/uL (3.72-5.28); RED CELL DISTRIBUTION WIDTH 15.7 % (11.5-14.0)
--- NOTE | 2019-06-26 21:16 | PDOC PROGRESS REPORT ---
Subjective Progress Note for:: 06/26/19 Reason For Visit: COPD EXACERBATION,CHRONIC ATRIAL FIB,HYPOXIA, This is a chart review note secondary to Covid-19 restrictions. The patient was not physically examined today. Reports are that she is feeling better. Have noticed that it has been documented that she has refused her Metoprolol a couple of times. She will be discharged soon, appears they will discuss with her SNF after discharge. Physical Exam Vital Signs: Temp Pulse Resp BP Pulse Ox 98.2 F 110 H 18 98/60 L 100 06/26/19 19:44 06/26/19 19:44 06/26/19 19:44 06/26/19 19:44 06/26/19 19:44 Intake & Output 06/25/19 06/26/19 06/27/19 06:59 06:59 06:59 Intake Total 950 1130 1170 Output Total 1325 2500 1600 Balance -375 -0563 -430 Weight 83.3 kg 82.4 kg Results Laboratory Results: 06/26/19 17:40 06/26/19 05:33 06/26/19 06/26/19 06/26/19 05:33 15:45 17:40 WBC 5.0 RBC 3.52 L Hgb 10.5 L Hct 32.2 L MCV 92 MCH 29.9 MCHC 32.6 RDW 15.7 H Plt Count 241 Sodium 136.7 L Potassium 4.1 Chloride 93 L Carbon Dioxide 37 H Anion Gap 7 BUN 14 Creatinine 0.56 Est GFR ( Amer) > 60 Glucose 87 Calcium 8.8 Urine Color YELLOW Urine Appearance CLEAR Urine pH 8.0 Ur Specific [place] 1.011 Urine Protein NEGATIVE Urine Glucose (UA) NEGATIVE Urine Ketones NEGATIVE Urine Blood SMALL H Urine Nitrite NEGATIVE Ur Leukocyte Esterase NEGATIVE Urine WBC (Auto) 6 Urine RBC (Auto) 13 06/23/19 06/23/19 06/23/19 05:39 06:38 06:38 Creatine Kinase Cancelled 37 CK-MB (CK-2) 2.89 Troponin I 0.029 NT-Pro-B Natriuret Pep 2550 H 06/24/19 06/25/19 06/26/19 04:45 05:24 05:33 Creatine Kinase CK-MB (CK-2) Troponin I NT-Pro-B Natriuret Pep 2920 H 2020 H 1950 H Impressions: Chest X-Ray 06/23/19 05:30 IMPRESSION: Pulmonary edema pattern with small bibasilar effusions copyright 2011 [employer]- All Rights Reserved Assessment & Plan - Diagnosis (1) Atrial fibrillation Qualifiers: Atrial fibrillation type: unspecified chronic Qualified Code(s): I48.20 - Chronic atrial fibrillation, unspecified; I48.2 - Chronic atrial fibrillation Is this a current diagnosis for this admission?: Yes Plan: Noted that pt has refused her Metoprolol a couple of times, not sure why this is happening but not communicated to us. Was held at one point due to hypotension which has resolved. Needs to be advised strongly to take her Metoprolol to prevent RVR, (2) Congestive heart failure Qualifiers: Heart failure type: unspecified Heart failure chronicity: chronic Qualified Code(s): I50.9 - Heart failure, unspecified Is this a current diagnosis for this admission?: Yes Plan: NTBNP 1950, much improved from previous. Cont current Lasix 40mg bid. (3) Acute and chronic respiratory failure with hypoxia Is this a current diagnosis for this admission?: Yes (4) H/O mitral valve replacement with mechanical valve Is this a current diagnosis for this admission?: No (5) Anemia Qualifiers: Anemia type: unspecified type Qualified Code(s): D64.9 - Anemia, unspecified Is this a current diagnosis for this admission?: Yes
[2019-06-26] MEDS: ATORVASTATIN CALCIUM 40 MG TABLET PO SCH (21:30)
[2019-06-27] MEDS: OXYCODONE-ACETAMINOPHEN 5-325 MG TABLET PO PRN ×4 (05:29→23:55)
[2019-06-27 06:51] LABS: INTERNATIONAL RATION (INR) 3.04; PROTHROMBIN TIME 32.1 SEC (11.4-15.4)
[2019-06-27 07:01] LABS: BLOOD UREA NITROGEN 14 mg/dL (7-20); CHLORIDE 91 mmol/L (98-107); GLUCOSE 88 mg/dL (75-110); POTASSIUM 4.1 mmol/L (3.6-5.0)
[2019-06-27 07:05] LABS: ANION GAP 6 (5-19)
[2019-06-27 07:11] LABS: CARBON DIOXIDE 40 mmol/L (22-30)
[2019-06-27] MEDS: DOCUSATE SODIUM 100 MG CAPSULE PO SCH (10:29)
[2019-06-27] MEDS: FERROUS SULFATE 325 MG TABLET PO SCH (10:30)
[2019-06-27] MEDS: EZETIMIBE 10 MG TABLET PO SCH (10:30)
[2019-06-27] MEDS: FUROSEMIDE INJ/PF 40 MG/4 ML SDV IV SCH ×2 (10:30→22:36)
[2019-06-27] MEDS: METOPROLOL TARTRATE 50 MG TABLET PO SCH ×2 (10:30→22:36)
[2019-06-27] MEDS: ASPIRIN 81 MG TABLET, ENT COATED PO SCH (10:30)
[2019-06-27] MEDS: POTASSIUM CHLORIDE 10 MEQ TABLET.ER PO SCH ×2 (10:30→22:39)
[2019-06-27] MEDS: SPIRONOLACTONE 25 MG TABLET PO SCH (10:30)
[2019-06-27] MEDS: ESCITALOPRAM OXALATE 10 MG TABLET PO SCH (10:30)
--- NOTE | 2019-06-27 10:49 | PDOC PROGRESS REPORT ---
Subjective Progress Note for:: 06/27/19 Reason For Visit: COPD EXACERBATION,CHRONIC ATRIAL FIB,HYPOXIA, 06/27/2019 Patient admitted with shortness of breath, chronic atrial fib, anemia Physical Exam Vital Signs: Temp Pulse Resp BP Pulse Ox 98.3 F 118 H 22 H 120/52 L 100 06/27/19 08:00 06/27/19 08:00 06/27/19 08:00 06/27/19 08:00 06/27/19 08:00 Intake & Output 06/26/19 06/27/19 06/28/19 06:59 06:59 06:59 Intake Total 1130 1170 Output Total 0604 3475 Balance -1370 -2305 Weight 82.4 kg 81.1 kg General appearance: PRESENT: no acute distress, other - Sitting up in bed speaking in full sentences with no respiratory distress Respiratory exam: PRESENT: wheezes Cardiovascular exam: PRESENT: RRR. ABSENT: diastolic murmur, rubs, systolic murmur Neurological exam: PRESENT: alert, awake, oriented to person, oriented to place, oriented to time, oriented to situation, CN II-XII grossly intact. ABSENT: motor sensory deficit Psychiatric exam: PRESENT: appropriate affect, normal mood. ABSENT: homicidal ideation, suicidal ideation Results Laboratory Results: 06/26/19 17:40 06/27/19 05:27 06/26/19 06/26/19 06/27/19 15:45 17:40 05:27 WBC 5.0 RBC 3.52 L Hgb 10.5 L Hct 32.2 L MCV 92 MCH 29.9 MCHC 32.6 RDW 15.7 H Plt Count 241 Sodium 137.4 Potassium 4.1 Chloride 91 L Carbon Dioxide 40 H* Anion Gap 6 BUN 14 Creatinine 0.62 Est GFR ( Amer) > 60 Glucose 88 Calcium 9.0 Urine Color YELLOW Urine Appearance CLEAR Urine pH 8.0 Ur Specific [place] 1.011 Urine Protein NEGATIVE Urine Glucose (UA) NEGATIVE Urine Ketones NEGATIVE Urine Blood SMALL H Urine Nitrite NEGATIVE Ur Leukocyte Esterase NEGATIVE Urine WBC (Auto) 6 Urine RBC (Auto) 13 06/23/19 06/23/19 06/23/19 05:39 06:38 06:38 Creatine Kinase Cancelled 37 CK-MB (CK-2) 2.89 Troponin I 0.029 NT-Pro-B Natriuret Pep 2550 H 06/24/19 06/25/19 06/26/19 04:45 05:24 05:33 Creatine Kinase CK-MB (CK-2) Troponin I NT-Pro-B Natriuret Pep 2920 H 2020 H 1950 H Impressions: Chest X-Ray 06/23/19 05:30 IMPRESSION: Pulmonary edema pattern with small bibasilar effusions copyright 2011 [employer]- All Rights Reserved Assessment and Plan - Diagnosis (1) Acute and chronic respiratory failure with hypoxia Is this a current diagnosis for this admission?: Yes (2) Anticoagulated on Coumadin Is this a current diagnosis for this admission?: Yes (3) Congestive heart failure Qualifiers: Heart failure type: unspecified Heart failure chronicity: chronic Qualified Code(s): I50.9 - Heart failure, unspecified Is this a current diagnosis for this admission?: Yes (4) Coronary artery disease Is this a current diagnosis for this admission?: Yes (5) NILDA (obstructive sleep apnea) Is this a current diagnosis for this admission?: Yes (6) Anemia Qualifiers: Anemia type: unspecified type Qualified Code(s): D64.9 - Anemia, unspecified Is this a current diagnosis for this admission?: Yes - Plan Summary Summary: Patient received IV steroids and duo nebs in the emergency room she also received Lasix 100 mg IV x1. Patient put out 1600 mL's of urine from the Lasix. Going to put her on Zithromax IV and 40 mg q. 12 hour IV dose of Lasix. Chest x-ray to moderate interpretation shows a possible new right lower lobe infiltrate. 06/24/2019 Vital signs are stable temperature 98.7,pulse 87 which is much improved from yesterday's tachycardia, blood pressure is slightly low but normal for her 90/40, oxygen saturations 100% on 2 L nasal cannula Patient states she is feeling much better and clinically looks much better she is obviously less short of breath White blood cell count remains normal 7.1 Chemistry panel shows a slightly elevated carbon dioxide level of 44 on admission it was 39 BNP on admission was 2550 today is 2920 Blood cultures negative x24 hours Patient is on her normal dose of Aldactone 25 mg a day she is now on Lopressor 50 mg twice daily as well as Lasix 40 mg IV every 12 hours 06/25/2019 Patient's blood pressure seems to have stabilized around 100/58 She is maintaining a good oxygen saturation above 95% on 1 or 2 L of oxygen per nasal cannula On admission she was requiring 6 L On admission her BNP was 2920 today it is 2019 Potassium has drifted down slightly to 3.3, will add replacement potassium Hemoglobin will be repeated in the morning other labs, will follow trending levels Clinically patient is feeling better and looks better, numbers appear to be stabilizing and her oxygen saturation is improving with less supplemental oxygen Renal functions appear to be tolerating her IV Lasix 06/26/2019 Patient states she is feeling much better, never got less shortness of breath Pulse is averaging around 90 Blood pressure approximately 100/50 Oxygen saturations are in the upper 90s on 2 L nasal cannula Patient's hemoglobin is back to up to 9.8 INR is back in the therapeutic range 3.35 creatinine continues to remain normal 0.56 BNP is trending downward slowly Medications appear to be appropriate Discharge planning has mentioned the possibility of [place] [facility] I will speak to the patient about this 06/27/2019 Patient with no complaints Patient's heart rate continues to have episodes where it will go up into the low 100s. This morning it was around 87 and then went up to 118 Blood pressure remained stable during that time 120/52 Oxygen saturation remains high on 2 L we will try to wean her back to 1 L. This morning INR is down to 3.04. Coumadin is currently on hold per pharmacy Blood cultures no growth in 4 days Hemoglobin stable at 10.5 Day 5 of IV Zithromax Repeat BNP in the morning Patient is medically stable for disposition - Time Time Spent with patient: 25-34 minutes
--- NOTE | 2019-06-27 14:15 | PDOC CONSULTATION ---
Consultation Consult Date: 06/27/19 Attending physician:: DUKE HAYS Provider Consulted: АЛЕКСАНДР MONGE Consult reason:: hypoxic/hypercapni res failure History of Present Illness Admission Date/PCP: 06/23/19 09:39 KRUPA VANCE PA-C History of Present Illness: SOFIA MISTRY is a 74 year old female presented emergency room with increasing shortness of breath dates family members are ill and she was attempting to avoid them pressure progress her shortness of breath progressed to the point only presented to the ED she has multiple medical problems including atrial fibrillation chronic. Congestive heart failure hypertension obstructive sleep apnea. She denies a hemoptysis PPD status is unknown no history chronic lung disease as a child or adolescent. No pets no recent travel no angina-like chest pain sleeps on 3 pillows occasional PND occasional nocturnal cough chronic edema. She was also noted to be increasingly anemic Past Medical History Cardiac Medical History: Reports: Atrial Fibrillation, Congestive Heart Failure, Coronary Artery Disease, Hyperlipidema, Hypertension - MEDS Denies: Myocardial Infarction Pulmonary Medical History: Reports: Chronic Obstructive Pulmonary Disease ( COPD), Respiratory Failure Denies: Asthma, Bronchitis, Pneumonia Neurological Medical History: Denies: Seizures Endocrine Medical History: Denies: Hypothyroidism GI Medical History: Denies: Hepatitis, Hiatal Hernia Musculoskeltal Medical History: Reports: Arthritis Psychiatric Medical History: Reports: Depression Hematology: Reports: Anemia Denies: Sickle Cell Disease Infectious Medical History: Reports: Methicillin-Resistant Staph Aureus Past Surgical History Past Surgical History: Reports: Cardiac Catheterization, Coronary Artery Bypass Graft, Valve Replacement Denies: Amputation, Hysterectomy, Mastectomy, Pacemaker Social History Information Source: Patient, [facility] Records Lives with: Family Smoking Status: Former Smoker Passive smoke exposure as: Both Frequency of Alcohol Use: None Hx Recreational Drug Use: No - previously Drugs: None Hx Prescription Drug Abuse: No Have you had any respiratory illnesses as a child?: No Have you been exposed to any sick contacts recently?: Yes Have you had any recent respiratory illnesses?: Yes Have you travelled outside of [place] in the past 12 months?: No - Advance Directive Resuscitation Status: Full Code Family History Family History: CVA, DM Parental Family History Reviewed: Yes Children Family History Reviewed: Yes Sibling(s) Family History Reviewed.: Yes Medication/Allergy Home Medications: Atorvastatin Calcium [Lipitor 40 mg Tablet] 40 mg PO QHS 01/08/12 Baclofen [Baclofen 10 mg Tablet] 10 mg PO Q8HP PRN 01/08/12 Ezetimibe [Zetia 10 mg Tablet] 10 mg PO DAILY 02/06/13 Cholecalciferol (Vitamin D3) [Vitamin D3 1000 Unit Tablet] 5,000 unit PO DAILY 06/16/19 Escitalopram Oxalate [Lexapro 10 mg Tablet] 10 mg PO DAILY 06/16/19 Oxycodone HCl/Acetaminophen [Oxycodone-Acetaminophen 10-325] 1 each PO Q8HP PRN 06/16/19 Oxycodone Myristate [Xtampza ER] 9 mg PO BID 06/16/19 Aspirin [Ecotrin 81 mg EC Tablet] 81 mg PO DAILY #30 tabec 06/22/19 Furosemide [Lasix 80 mg Tablet] 80 mg PO DAILY #30 tablet 06/22/19 Metoprolol Tartrate [Lopressor 50 mg Tablet] 50 mg PO Q12 #60 tablet 06/22/19 Potassium Chloride [Klor-Con 10 Meq Tablet ER] 20 meq PO DAILY #60 tablet.er 06/22/19 Spironolactone [Aldactone 25 mg Tablet] 25 mg PO DAILY #30 tablet 06/22/19 Warfarin Sodium [Coumadin 1 mg Tablet] 1 mg PO QHS tablet 06/22/19 Allergies/Adverse Reactions: JANUSZ Inhibitors [Janusz Inhibitors] Allergy (Verified 06/23/19 07:17) Rash fish derived [Fish derived] Allergy (Verified 06/23/19 07:17) RASH latex Allergy (Verified 06/23/19 07:17) NSAIDS (Non-Steroidal Anti-Inflamma [Nsaids] Allergy (Verified 06/23/19 07:17) RASH tramadol [Tramadol] Allergy (Verified 06/23/19 07:17) RASH Review of Systems All systems: reviewed and no additional remarkable complaints except as stated Physical Exam Vital Signs: Temp Pulse Resp BP Pulse Ox 98.0 F 100 22 H 92/28 L 98 06/27/19 12:00 06/27/19 12:00 06/27/19 12:00 06/27/19 12:00 06/27/19 12:00 Intake & Output 06/26/19 06/27/19 06/28/19 06:59 06:59 06:59 Intake Total 1130 1170 240 Output Total 9250 3475 Balance -1370 -2305 240 Weight 82.4 kg 81.1 kg General appearance: PRESENT: no acute distress, cooperative, disheveled, well- developed, well-nourished Head exam: PRESENT: atraumatic, normocephalic Eye exam: PRESENT: conjunctiva pale, EOMI. ABSENT: nystagmus, periorbital swelling, scleral icterus Mouth exam: PRESENT: dry mucosa, neck supple, tongue midline Neck exam: ABSENT: carotid bruit, full ROM, JVD, lymphadenopathy, meningismus, tenderness, thyromegaly, tracheal deviation, tracheostomy, other Respiratory exam: PRESENT: decreased breath sounds, prolonged expiratory phas, rhonchi, unlabored. ABSENT: retraction, stridor, tachypnea Cardiovascular exam: PRESENT: irregular rhythm Pulses: PRESENT: normal radial pulses GI/Abdominal exam: PRESENT: soft. ABSENT: distended, guarding, mass, rebound, tenderness Extremities exam: ABSENT: calf tenderness, clubbing, joint swelling, tenderness Musculoskeletal exam: ABSENT: deformity, dislocation Neurological exam: PRESENT: awake Psychiatric exam: PRESENT: flat affect Skin exam: PRESENT: dry, warm Results Laboratory Results: 06/26/19 17:40 06/27/19 05:27 06/26/19 06/26/19 06/27/19 15:45 17:40 05:27 WBC 5.0 RBC 3.52 L Hgb 10.5 L Hct 32.2 L MCV 92 MCH 29.9 MCHC 32.6 RDW 15.7 H Plt Count 241 Sodium 137.4 Potassium 4.1 Chloride 91 L Carbon Dioxide 40 H* Anion Gap 6 BUN 14 Creatinine 0.62 Est GFR ( Amer) > 60 Glucose 88 Calcium 9.0 Urine Color YELLOW Urine Appearance CLEAR Urine pH 8.0 Ur Specific [place] 1.011 Urine Protein NEGATIVE Urine Glucose (UA) NEGATIVE Urine Ketones NEGATIVE Urine Blood SMALL H Urine Nitrite NEGATIVE Ur Leukocyte Esterase NEGATIVE Urine WBC (Auto) 6 Urine RBC (Auto) 13 06/23/19 06/23/19 06/23/19 05:39 06:38 06:38 Creatine Kinase Cancelled 37 CK-MB (CK-2) 2.89 Troponin I 0.029 NT-Pro-B Natriuret Pep 2550 H 06/24/19 06/25/19 06/26/19 04:45 05:24 05:33 Creatine Kinase CK-MB (CK-2) Troponin I NT-Pro-B Natriuret Pep 2920 H 2020 H 1950 H Impressions: Chest X-Ray 06/23/19 05:30 IMPRESSION: Pulmonary edema pattern with small bibasilar effusions copyright 2011 [employer]- All Rights Reserved Assessment & Plan - Diagnosis (1) Atrial fibrillation Qualifiers: Atrial fibrillation type: unspecified chronic Qualified Code(s): I48.20 - Chronic atrial fibrillation, unspecified; I48.2 - Chronic atrial fibrillation Is this a current diagnosis for this admission?: Yes Plan: Per cardiology (2) Congestive heart failure Qualifiers: Heart failure type: unspecified Heart failure chronicity: chronic Qualified Code(s): I50.9 - Heart failure, unspecified Is this a current diagnosis for this admission?: Yes Plan: Gentle diuresis (3) Acute and chronic respiratory failure with hypoxia Is this a current diagnosis for this admission?: Yes Plan: Noninvasive positive pressure ventilation however would limit inspiratory pressures and tidal volume so as not to blow off excessive carbon dioxide and create an respiratory alkalosis (4) NILDA (obstructive sleep apnea) Is this a current diagnosis for this admission?: Yes Plan: BiPAP as needed - Time Time Spent with patient: 55
[2019-06-27] MEDS: AZITHROMYCIN 500 MG in DEXTROSE 5%-WATER 250 ML IV SCH (17:31)
[2019-06-27] MEDS: ATORVASTATIN CALCIUM 40 MG TABLET PO SCH (22:40)
[2019-06-28] MEDS: OXYCODONE-ACETAMINOPHEN 5-325 MG TABLET PO PRN ×2 (05:46→11:46)
[2019-06-28 06:26] LABS: PROTHROMBIN TIME 30.1 SEC (11.4-15.4)
[2019-06-28 06:41] LABS: BLOOD UREA NITROGEN 12 mg/dL (7-20); CALCIUM 9.2 mg/dL (8.4-10.2); CARBON DIOXIDE 39 mmol/L (22-30); CHLORIDE 93 mmol/L (98-107); GLUCOSE 89 mg/dL (75-110); POTASSIUM 4.2 mmol/L (3.6-5.0)
[2019-06-28 06:48] LABS: ANION GAP 4 (5-19)
[2019-06-28 09:51] LABS: ARTERIAL BLOOD BASE EXCESS 8.1 mmol/L; ARTERIAL BLOOD H2CO3 1.47 mmol/L (1.05-1.35); ARTERIAL BLOOD HCO3 33.2 mmol/L (20-24); ARTERIAL BLOOD O2 SATURATION 93.4 % (94-98); ARTERIAL BLOOD PCO2 48.8 mmHg (35-45); ARTERIAL BLOOD PH 7.45 (7.35-7.45); ARTERIAL BLOOD PO2 65.1 mmHg (80-100); ARTERIAL BLOOD TOTAL CO2 34.7 mmol/L (21-25)
[2019-06-28 09:52] LABS: ARTERIAL BLOOD FIO2 21%
[2019-06-28] MEDS: ASPIRIN 81 MG TABLET, ENT COATED PO SCH (10:35)
[2019-06-28] MEDS: POTASSIUM CHLORIDE 10 MEQ TABLET.ER PO SCH (10:35)
[2019-06-28] MEDS: EZETIMIBE 10 MG TABLET PO SCH (10:35)
[2019-06-28] MEDS: METOPROLOL TARTRATE 50 MG TABLET PO SCH (10:35)
[2019-06-28] MEDS: ESCITALOPRAM OXALATE 10 MG TABLET PO SCH (10:35)
[2019-06-28] MEDS: DOCUSATE SODIUM 100 MG CAPSULE PO SCH (10:35)
[2019-06-28] MEDS: SPIRONOLACTONE 25 MG TABLET PO SCH (10:36)
[2019-06-28] MEDS: FERROUS SULFATE 325 MG TABLET PO SCH (10:36)
[2019-06-28] MEDS: FUROSEMIDE INJ/PF 40 MG/4 ML SDV IV SCH (10:36)
[2019-06-28 12:19] VITALS: BP 122/65
--- NOTE | 2019-07-08 14:29 | PDOC DISCHARGE SUMMARY ---
Impression - Admit/DC Date/PCP Admission Date/Primary Care Provider: 06/23/19 09:39 KRUPA VANCE PA-C Discharge Date: 06/28/19 - Discharge Diagnosis (1) Acute and chronic respiratory failure with hypoxia Is this a current diagnosis for this admission?: Yes (2) Anticoagulated on Coumadin Is this a current diagnosis for this admission?: Yes (3) Congestive heart failure Is this a current diagnosis for this admission?: Yes (4) Coronary artery disease Is this a current diagnosis for this admission?: Yes (5) NILDA (obstructive sleep apnea) Is this a current diagnosis for this admission?: Yes (6) Anemia Is this a current diagnosis for this admission?: Yes - Assessment Summary: Patient received IV steroids and duo nebs in the emergency room she also received Lasix 100 mg IV x1. Patient put out 1600 mL's of urine from the Lasix. Going to put her on Zithromax IV and 40 mg q. 12 hour IV dose of Lasix. Chest x-ray to moderate interpretation shows a possible new right lower lobe infiltrate. 06/24/2019 Vital signs are stable temperature 98.7,pulse 87 which is much improved from yesterday's tachycardia, blood pressure is slightly low but normal for her 90/ 40, oxygen saturations 100% on 2 L nasal cannula Patient states she is feeling much better and clinically looks much better she is obviously less short of breath White blood cell count remains normal 7.1 Chemistry panel shows a slightly elevated carbon dioxide level of 44 on admission it was 39 BNP on admission was 2550 today is 2920 Blood cultures negative x24 hours Patient is on her normal dose of Aldactone 25 mg a day she is now on Lopressor 50 mg twice daily as well as Lasix 40 mg IV every 12 hours 06/25/2019 Patient's blood pressure seems to have stabilized around 100/58 She is maintaining a good oxygen saturation above 95% on 1 or 2 L of oxygen per nasal cannula On admission she was requiring 6 L On admission her BNP was 2920 today it is 2019 Potassium has drifted down slightly to 3.3, will add replacement potassium Hemoglobin will be repeated in the morning other labs, will follow trending levels Clinically patient is feeling better and looks better, numbers appear to be stabilizing and her oxygen saturation is improving with less supplemental oxygen Renal functions appear to be tolerating her IV Lasix 06/26/2019 Patient states she is feeling much better, never got less shortness of breath Pulse is averaging around 90 Blood pressure approximately 100/50 Oxygen saturations are in the upper 90s on 2 L nasal cannula Patient's hemoglobin is back to up to 9.8 INR is back in the therapeutic range 3.35 creatinine continues to remain normal 0.56 BNP is trending downward slowly Medications appear to be appropriate Discharge planning has mentioned the possibility of [facility] facility I will speak to the patient about this 06/27/2019 Patient with no complaints Patient's heart rate continues to have episodes where it will go up into the low 100s. This morning it was around 87 and then went up to 118 Blood pressure remained stable during that time 120/52 Oxygen saturation remains high on 2 L we will try to wean her back to 1 L. This morning INR is down to 3.04. Coumadin is currently on hold per pharmacy Blood cultures no growth in 4 days Hemoglobin stable at 10.5 Day 5 of IV Zithromax Repeat BNP in the morning Patient is medically stable for disposition 06/28/2019 Patient is medically stable for discharge today Patient was discharged home on iron tablets 325 daily Lasix 40 mg twice daily and potassium 20 mEq twice daily loss her regular medications. Patient is to follow-up next week with her primary care provider for repeat PT/INR. Patient will be discharged on her Coumadin 1 mg nightly Need to follow-up with cardiology and pulmonology as recommended Patient will use her home oxygen as needed Final diagnosis acute on chronic respiratory failure with hypoxia #2 anticoagulated on Coumadin No. 3 congestive heart failure, unspecified #4 vincent ry artery disease #5 obstructive sleep apnea #6 anemia Patient was admitted to the hospital after just having been discharged the night before 1900 hrs. for COPD exacerbation. Going home she went to a local hotel because her son and were sick at home with cough and cold-like symptoms. In the morning that she return she was short of breath back in the emergency room. She received IV antibiotics, IV diuretics as well as steroids and improved dramatically during this hospitalization. - Additional Information Resuscitation Status: Full Code Discharge Diet: Cardiac, Diabetic Discharge Activity: Activity As Tolerated, Balance Activity w/Rest, Weigh Daily Referrals: KRUPA VANCE PA-C [Primary Care Provider] - 06/29/19 9:15 am Prescriptions: Ferrous Sulfate [Feosol 325 mg Tablet] 325 mg PO DAILY 30 Days #30 tablet Furosemide [Lasix 40 mg Tablet] 40 mg PO BID 30 Days #60 tablet Potassium Chloride 20 meq PO BID 30 Days #60 tablet.er Home Medications: Atorvastatin Calcium [Lipitor 40 mg Tablet] 40 mg PO QHS 01/08/12 Baclofen [Baclofen 10 mg Tablet] 10 mg PO Q8HP PRN 01/08/12 Ezetimibe [Zetia 10 mg Tablet] 10 mg PO DAILY 02/06/13 Cholecalciferol (Vitamin D3) [Vitamin D3 1000 Unit Tablet] 5,000 unit PO DAILY 06/16/19 Escitalopram Oxalate [Lexapro 10 mg Tablet] 10 mg PO DAILY 06/16/19 Oxycodone HCl/Acetaminophen [Oxycodone-Acetaminophen 10-325] 1 each PO Q8HP PRN 06/16/19 Oxycodone Myristate [Xtampza ER] 9 mg PO BID 06/16/19 Aspirin [Ecotrin 81 mg EC Tablet] 81 mg PO DAILY #30 tabec 06/22/19 Metoprolol Tartrate [Lopressor 50 mg Tablet] 50 mg PO Q12 #60 tablet 06/22/19 Spironolactone [Aldactone 25 mg Tablet] 25 mg PO DAILY #30 tablet 06/22/19 Carboxymethylcellulose Sodium [Refresh Plus 0.5% Oph Soln 0.4 ml Droperette] 1 drop OU Q4HP PRN droperette 06/28/19 Docusate Sodium [Colace 100 mg Capsule] 100 mg PO DAILY capsule 06/28/19 Ferrous Sulfate [Feosol 325 mg Tablet] 325 mg PO DAILY 30 Days #30 tablet 06/28/19 Furosemide [Lasix 40 mg Tablet] 40 mg PO BID 30 Days #60 tablet 06/28/19 Potassium Chloride 20 meq PO BID 30 Days #60 tablet.er 06/28/19 Warfarin Sodium [Coumadin 1 mg Tablet] 1 mg PO QHS tablet 06/28/19 Nitrofurantoin Monohyd/M-Cryst [Macrobid 100 mg Capsule] 100 mg PO BID #14 cap 07/04/19 History of Present Illiness History of Present Illness: SOFIA MISTRY is a 74 year old female was discharged from the hospital last night at 1900 hrs. following a COPD exacerbation. Patient had been in the hospital about 6 days for the complaint. When patient was discharged she went to a local hotel because her son and were sick at home with a cough and cold-like symptoms. Patient states she did not want to be exposed to them. However this morning she woke up and said she was once again short of breath so she came back to the emergency room. She had not had a chance to get any of her discharge medications. Patient is on BiPAP in the emergency room and says she feels much better following her treatments which included Solu-Medrol and DuoNeb. Patient will be readmitted to the hospital for IV diuretics, and IV antibiotics. It does not appear patient was on antibiotics during her last admission, at that time was primarily due to CHF exacerbation. Physical Exam Vital Signs: Temp Pulse Resp BP Pulse Ox 98.2 F 115 H 19 104/50 L 99 06/28/19 11:51 06/28/19 11:51 06/28/19 11:51 06/28/19 11:51 06/28/19 11:51 Results Laboratory Results: WBC 5.0 10^3/uL (4.0-10.5) 06/26/19 17:40 RBC 3.52 10^6/uL (3.72-5.28) L 06/26/19 17:40 Hgb 10.5 g/dL (12.0-15.5) L 06/26/19 17:40 Hct 32.2 % (36.0-47.0) L 06/26/19 17:40 MCV 92 fl (80-97) 06/26/19 17:40 MCH 29.9 pg (27.0-33.4) 06/26/19 17:40 MCHC 32.6 g/dL (32.0-36.0) 06/26/19 17:40 RDW 15.7 % (11.5-14.0) H 06/26/19 17:40 Plt Count 241 10^3/uL (150-450) 06/26/19 17:40 Lymph % (Auto) 7.9 % (13-45) L 06/25/19 15:16 [place] % (Auto) 12.9 % (3-13) 06/25/19 15:16 Eos % (Auto) 0.8 % (0-6) 06/25/19 15:16 Baso % (Auto) 0.5 % (0-2) 06/25/19 15:16 Reticulocyte # 0.065 10^6/uL (0.028-0.122) 06/24/19 04:45 Absolute Neuts (auto) 5.2 10^3/uL (1.7-8.2) 06/25/19 15:16 Absolute Lymphs (auto) 0.5 10^3/uL (0.5-4.7) 06/25/19 15:16 Absolute Monos (auto) 0.9 10^3/uL (0.1-1.4) 06/25/19 15:16 Absolute Eos (auto) 0.1 10^3/uL (0.0-0.6) 06/25/19 15:16 Absolute Basos (auto) 0.0 10^3/uL (0.0-0.2) 06/25/19 15:16 Total Counted 100 06/24/19 04:45 Seg Neutrophils % 77.9 % (42-78) 06/25/19 15:16 Seg Neuts % (Manual) 93 % (42-78) H 06/24/19 04:45 Lymphocytes % (Manual) 5 % (13-45) L 06/24/19 04:45 Monocytes % (Manual) 2 % (3-13) L 06/24/19 04:45 Eosinophils % (Manual) 0 % (0-6) 06/24/19 04:45 Basophils % (Manual) 0 % (0-2) 06/24/19 04:45 Abs Neuts (Manual) 6.6 10^3/uL (1.7-8.2) 06/24/19 04:45 Abs Lymphs (Manual) 0.4 10^3/uL (0.5-4.7) L 06/24/19 04:45 Abs Monocytes (Manual) 0.1 10^3/uL (0.1-1.4) 06/24/19 04:45 Absolute Eos (Manual) 0.0 10^3/uL (0.0-0.6) 06/24/19 04:45 Abs Basophils (Manual) 0.0 10^3/uL (0.0-0.2) 06/24/19 04:45 Toxic Granulation 1+ 06/23/19 05:39 Platelet Comment ADEQUATE 06/24/19 04:45 Poikilocytosis SLIGHT 06/23/19 05:39 Anisocytosis 1+ 06/24/19 04:45 Ovalocytes SLIGHT 06/24/19 04:45 Kavitha Cells SLIGHT 06/23/19 05:39 Retic Count (auto) 2.16 % (0.66-2.85) 06/24/19 04:45 PT 30.1 SEC (11.4-15.4) H 06/28/19 05:44 INR 2.80 06/28/19 05:44 APTT 58.2 SEC (23.5-35.8) H 06/24/19 04:45 Carbonic Acid 1.47 mmol/L (1.05-1.35) H 06/28/19 09:40 HCO3/H2CO3 Ratio 22:1 06/28/19 09:40 ABG pH 7.45 (7.35-7.45) 06/28/19 09:40 ABG pCO2 48.8 mmHg (35-45) H 06/28/19 09:40 ABG pO2 65.1 mmHg (80-100) L 06/28/19 09:40 ABG HCO3 33.2 mmol/L (20-24) H 06/28/19 09:40 ABG Total CO2 34.7 mmol/L (21-25) H 06/28/19 09:40 ABG O2 Saturation 93.4 % (94-98) L 06/28/19 09:40 ABG Base Excess 8.1 mmol/L 06/28/19 09:40 FiO2 21% 06/28/19 09:40 Sodium 136.0 mmol/L (137-145) L 06/28/19 05:44 Potassium 4.2 mmol/L (3.6-5.0) 06/28/19 05:44 Chloride 93 mmol/L (98-107) L 06/28/19 05:44 Carbon Dioxide 39 mmol/L (22-30) H 06/28/19 05:44 Anion Gap 4 (5-19) L 06/28/19 05:44 BUN 12 mg/dL (7-20) 06/28/19 05:44 Creatinine 0.65 mg/dL (0.52-1.25) 06/28/19 05:44 Est GFR ( Amer) > 60 (>60) 06/28/19 05:44 Est GFR (Non-Af Amer) Cancelled 06/23/19 05:39 Est GFR (MDRD) Non-Af > 60 (>60) 06/28/19 05:44 Glucose 89 mg/dL (75-110) 06/28/19 05:44 Calcium 9.2 mg/dL (8.4-10.2) 06/28/19 05:44 Iron 30.9 ug/dL (37-170) L 06/24/19 04:45 TIBC 333 ug/dL (250-450) 06/24/19 04:45 % Saturation 9 % 06/24/19 04:45 Ferritin 48.30 ng/mL (11.1-264.0) 06/24/19 04:45 Total Bilirubin 0.8 mg/dL (0.2-1.3) 06/23/19 06:38 Direct Bilirubin 0.1 mg/dL (0.0-0.4) 06/23/19 06:38 Neonat Total Bilirubin Not Reportable 06/23/19 06:38 Neonat Direct Bilirubin Not Reportable 06/23/19 06:38 Neonat Indirect Bili Not Reportable 06/23/19 06:38 AST 42 U/L (14-36) H 06/23/19 06:38 ALT 31 U/L (<35) 06/23/19 06:38 Alkaline Phosphatase 115 U/L (38-126) 06/23/19 06:38 Creatine Kinase 37 U/L (30-135) 06/23/19 06:38 CK-MB (CK-2) 2.89 ng/mL (<4.55) 06/23/19 06:38 Troponin I 0.029 ng/mL 06/23/19 06:38 NT-Pro-B Natriuret Pep 1400 pg/mL (<125) H 06/28/19 05:44 Total Protein 6.4 g/dL (6.3-8.2) 06/23/19 06:38 Albumin 3.7 g/dL (3.5-5.0) 06/23/19 06:38 EGFR Cancelled 06/23/19 05:39 Vitamin B12 484.0 pg/mL (239-931) 06/24/19 04:45 Folate 4.35 ng/mL (>2.76) 06/24/19 04:45 Urine Color YELLOW 06/26/19 15:45 Urine Appearance CLEAR 06/26/19 15:45 Urine pH 8.0 (5.0-9.0) 06/26/19 15:45 Ur Specific [place] 1.011 06/26/19 15:45 Urine Protein NEGATIVE mg/dL (NEGATIVE) 06/26/19 15:45 Urine Glucose (UA) NEGATIVE mg/dL (NEGATIVE) 06/26/19 15:45 Urine Ketones NEGATIVE mg/dL (NEGATIVE) 06/26/19 15:45 Urine Blood SMALL (NEGATIVE) H 06/26/19 15:45 Urine Nitrite NEGATIVE (NEGATIVE) 06/26/19 15:45 Urine Bilirubin NEGATIVE (NEGATIVE) 06/26/19 15:45 Urine Urobilinogen 2.0 mg/dL (<2.0) H 06/26/19 15:45 Ur Leukocyte Esterase NEGATIVE (NEGATIVE) 06/26/19 15:45 Urine WBC (Auto) 6 /HPF 06/26/19 15:45 Urine RBC (Auto) 13 /HPF 06/26/19 15:45 U Hyaline Cast (Auto) 1 /LPF 06/26/19 15:45 Urine Bacteria (Auto) TRACE /HPF 06/26/19 15:45 Squamous Epi Cells Auto <1 /HPF 06/24/19 16:51 Urine Mucus (Auto) RARE /LPF 06/26/19 15:45 Urine Yeast (Budding) PRESENT /HPF 06/26/19 15:45 Urine Ascorbic Acid NEGATIVE (NEGATIVE) 06/26/19 15:45 Influenza A (Rapid) NEGATIVE (NEGATIVE) 06/25/19 18:35 Influenza B (Rapid) NEGATIVE (NEGATIVE) 06/25/19 18:35 Group A Strep Rapid NEGATIVE (NEGATIVE) 06/25/19 18:35 06/23/19 06/24/19 06/25/19 06:38 04:45 05:24 CK-MB (CK-2) 2.89 Troponin I 0.029 NT-Pro-B Natriuret Pep 2550 H 2920 H 2020 H 06/26/19 06/28/19 05:33 05:44 CK-MB (CK-2) Troponin I NT-Pro-B Natriuret Pep 1950 H 1400 H Impressions: Chest X-Ray 06/23/19 05:30 IMPRESSION: Pulmonary edema pattern with small bibasilar effusions copyright 2011 [employer]- All Rights Reserved Stroke Is this a Stroke Patient?: No Acute Heart Failure - Is this a Heart Failure Patient?: Yes Documentation of LVEF assessment?: Yes LVEF < 40%?: No- if no continue to question #3 3. Anticoagulant therapy for permanect/persistent/paraoxysmal Afib or Aflutter: Yes Follow-up Appointment scheduled within 7 days?: Yes
== END 2019-06-28 12:37 | disposition home or self-care (01) | DRG 190 ==
LOC: ER 05:03 → EH 09:39 → 4S 10:34
PROVIDERS: ADMIT Internal Medicine; ATTEND Physician Assistant
PROC: 5A09457 Assistance with Respiratory Ventilation, 24-96 Consecutive Hours, Continuous Positive Airway Pressure (ICD-10-PCS; principal; 2019-06-23)
DX: J44.1 Chronic obstructive pulmonary disease with (acute) exacerbation (principal); J96.21 Acute and chronic respiratory failure with hypoxia; I48.20 Chronic atrial fibrillation, unspecified; I11.0 Hypertensive heart disease with heart failure; I50.9 Heart failure, unspecified; G47.33 Obstructive sleep apnea (adult) (pediatric); I25.10 Atherosclerotic heart disease of native coronary artery without angina pectoris; E78.5 Hyperlipidemia, unspecified; F32.9 Major depressive disorder, single episode, unspecified; D64.9 Anemia, unspecified; I95.2 Hypotension due to drugs; T50.1X5A Adverse effect of loop [high-ceiling] diuretics, initial encounter; Z99.81 Dependence on supplemental oxygen; Z86.14 Personal history of Methicillin resistant Staphylococcus aureus infection; Z95.5 Presence of coronary angioplasty implant and graft; Z87.891 Personal history of nicotine dependence; Z79.899 Other long term (current) drug therapy; Z88.8 Allergy status to other drugs, medicaments and biological substances; Z88.6 Allergy status to analgesic agent; Z91.040 Latex allergy status; Z91.013 Allergy to seafood; Z95.1 Presence of aortocoronary bypass graft; Z95.2 Presence of prosthetic heart valve; Z79.01 Long term (current) use of anticoagulants; Z79.82 Long term (current) use of aspirin; Y92.9 Unspecified place or not applicable; Z79.891 Long term (current) use of opiate analgesic
CPT/HCPCS: 36415; 36600; 51702; 71045; 80048; 80053; 81001; 82550; 82553; 82607; 82728; 82746; 82803; 83540; 83550; 83880; 84484; 85025; 85027; 85045; 85610; 85730; 87040; 87070; 87804; 87880; 93005; 93010; 94640; 94660; 96374; 99291; J0456; J1940; J2550; J3490; J7060; J7620

== ENCOUNTER → 2019-07-03 | Outpatient (CLI) | payer MEDICARE, MEDICAID ==
[2019-07-03 10:33] LABS: INTERNATIONAL RATION (INR) 2.02; PROTHROMBIN TIME 23.2 SEC (11.4-15.4)
== END ==
LOC: OD 09:14
PROVIDERS: ATTEND Internal Medicine Cardiovascular Disease
DX: I48.20 Chronic atrial fibrillation, unspecified (principal); Z79.01 Long term (current) use of anticoagulants
CPT/HCPCS: 36415; 85610

== ENCOUNTER 2019-07-04 15:13 | Emergency (ER) | payer MEDICARE, MEDICAID ==
--- NOTE | 2019-07-04 15:28 | ER Document Report ---
ED Medical Screen (RME) - General Chief Complaint: Leg Swelling Stated Complaint: URINARY ISSUES Primary Care Provider: OTTO ALLEN MD [Primary Care Provider] - Follow up as needed Notes: Patient is a 74-year-old white female with a recent past medical history of pneumonia who was admitted here to the hospital, hypertension, COPD and CHF who presents with a chief complaint of suspected fluid retention. States her daughter is been keeping track of her vital signs and weight since discharge and noticed a fluctuants of her weight between the 140s and 150s kilogram leticia. Also reports some gradual decrease in her blood pressure over the past week. Patient states that she feels okay, asymptomatic. Denies any specific areas of water retention such as the lower extremities. Denies any chest pain or shortness of breath. No lower extremity pain or swelling. I have treated and performed a rapid initial assessment of this patient. A comprehensive ED assessment and evaluation of the patient, analysis of test results and completion of medical decision making process will be conducted by additional ED providers. PHYSICAL EXAMINATION: GENERAL: Well-appearing, well-nourished and in no acute distress. A&Ox4. Answers questions appropriately. TRAVEL OUTSIDE OF THE [place] IN LAST 30 DAYS: No - Related Data Allergies/Adverse Reactions: JANUSZ Inhibitors [Janusz Inhibitors] Allergy (Verified 07/04/19 15:25) Rash fish derived [Fish derived] Allergy (Verified 07/04/19 15:25) RASH latex Allergy (Verified 07/04/19 15:25) NSAIDS (Non-Steroidal Anti-Inflamma [Nsaids] Allergy (Verified 07/04/19 15:25) RASH tramadol [Tramadol] Allergy (Verified 07/04/19 15:25) RASH Past Medical History - Past Medical History Cardiac Medical History: Reports: Hx Atrial Fibrillation, Hx Congestive Heart Failure, Hx Coronary Artery Disease, Hx Hypercholesterolemia, Hx Hypertension - MEDS Denies: Hx Heart Attack Pulmonary Medical History: Reports: Hx COPD, Hx Respiratory Failure Denies: Hx Asthma, Hx Bronchitis, Hx Pneumonia Neurological Medical History: Denies: Hx Cerebrovascular Accident, Hx Seizures Endocrine Medical History: Denies: Hx Hypothyroidism Renal/ Medical History: Denies: Hx Peritoneal Dialysis GI Medical History: Denies: Hx Hepatitis, Hx Hiatal Hernia, Hx Ulcer Musculoskeltal Medical History: Reports Hx Arthritis Psychiatric Medical History: Reports: Hx Depression Infectious Medical History: Reports: Hx MRSA. Denies: Hx Hepatitis Past Surgical History: Reports: Hx Cardiac Catheterization, Hx Cardiac Surgery, Hx Coronary Artery Bypass Graft, Hx Open Heart Surgery - CABG X2, VALVE REPLACEMENT, Hx Valve Replacement. Denies: Hx Hysterectomy, Hx Mastectomy, Hx Pacemaker - Immunizations Hx Diphtheria, Pertussis, Tetanus Vaccination: No Physical Exam - Vital signs Vitals: Temp Pulse Resp BP Pulse Ox 97.6 F 100 18 111/65 91 L 07/04/19 15:19 07/04/19 15:19 07/04/19 15:19 07/04/19 15:19 07/04/19 15:19 Course - Vital Signs Vital signs: Temp Pulse Resp BP Pulse Ox 97.6 F 100 18 111/65 91 L 07/04/19 15:19 07/04/19 15:19 07/04/19 15:19 07/04/19 15:19 07/04/19 15:19 Doctor's Discharge - Discharge Referrals: OTTO ALLEN MD [Primary Care Provider] - Follow up as needed
[2019-07-04 15:49] LABS: ABSOLUTE BASOPHILS # (AUTO) 0.1 10^3/uL (0.0-0.2); ABSOLUTE EOSINOPHILS # (AUTO) 0.1 10^3/uL (0.0-0.6); ABSOLUTE LYMPHOCYTES (AUTO) 0.7 10^3/uL (0.5-4.7); ABSOLUTE MONOCYTES (AUTO) 0.6 10^3/uL (0.1-1.4); ABSOLUTE NEUT (AUTO) 3.8 10^3/uL (1.7-8.2); EOSINOPHILS % (AUTO) 1.4 % (0-6); HEMATOCRIT 33.8 % (36.0-47.0); HEMOGLOBIN 11.2 g/dL (12.0-15.5); LYMPHOCYTES % (AUTO) 13.6 % (13-45); MEAN CORPUSCULAR HEMOGLOBIN 30.3 pg (27.0-33.4); MEAN CORPUSCULAR VOLUME 92 fl (80-97); MONOCYTES % (AUTO) 11.5 % (3-13); PLATELET COUNT 245 10^3/uL (150-450); RED BLOOD COUNT 3.69 10^6/uL (3.72-5.28); RED CELL DISTRIBUTION WIDTH 17.2 % (11.5-14.0); SEGMENTED NEUTROPHILS % (AUTO) 72.5 % (42-78); TOTAL CELLS COUNTED % (AUTO) 100 %; WHITE BLOOD COUNT 5.2 10^3/uL (4.0-10.5)
[2019-07-04 16:03] LABS: ALBUMIN 4.1 g/dL (3.5-5.0); ALKALINE PHOSPHATASE 91 U/L (38-126); ANION GAP 10 (5-19); ASPARTATE AMINO TRANSFERASE 40 U/L (14-36); BILIRUBIN,DIRECT 0.2 mg/dL (0.0-0.4); BILIRUBIN,TOTAL 0.5 mg/dL (0.2-1.3); BLOOD UREA NITROGEN 17 mg/dL (7-20); CALCIUM 9.4 mg/dL (8.4-10.2); CARBON DIOXIDE 32 mmol/L (22-30); CHLORIDE 94 mmol/L (98-107); GLUCOSE 113 mg/dL (75-110)
--- NOTE | 2019-07-04 16:16 | ER Document Report ---
Entered by MARY LOBO SCRIBE 07/04/19 1559 Acting as scribe for:VANNA CARVER MD ED General - General Chief Complaint: Leg Swelling Stated Complaint: URINARY ISSUES Time Seen by Provider: 07/04/19 15:30 Mode of Arrival: Ambulatory Information source: Patient Notes: This 74 year old female patient presents to the emergency department today with complaints of possible fluid retention. Patient's daughter has been weighing her daily and she reported a fluctuation between "140 to 150 kg" per triage note, although this is likely to be pounds and not kilograms. This patient was admitted to this facility from and then again on for CHF exacerbation. When the patient was seen here on 06/22 she was noted to have compression stockings on and she had 1+ pitting edema to bilateral lower extremities, whereas today she is not wearing any stockings and she has trace edema bilaterally. The patient herself has no complaints. TRAVEL OUTSIDE OF THE [place] IN LAST 30 DAYS: No - Related Data Allergies/Adverse Reactions: JANUSZ Inhibitors [Janusz Inhibitors] Allergy (Verified 07/04/19 15:25) Rash fish derived [Fish derived] Allergy (Verified 07/04/19 15:25) RASH latex Allergy (Verified 07/04/19 15:25) NSAIDS (Non-Steroidal Anti-Inflamma [Nsaids] Allergy (Verified 07/04/19 15:25) RASH tramadol [Tramadol] Allergy (Verified 07/04/19 15:25) RASH Past Medical History - General Information source: Patient, [facility] Records - Social History Smoking Status: Never Smoker Cigarette use (# per day): No Frequency of alcohol use: None Drug Abuse: None Lives with: Family Family History: CVA, DM Patient has suicidal ideation: No Patient has homicidal ideation: No - Past Medical History Cardiac Medical History: Reports: Hx Atrial Fibrillation, Hx Congestive Heart Fa ilure, Hx Coronary Artery Disease, Hx Hypercholesterolemia, Hx Hypertension Pulmonary Medical History: Reports: Hx COPD, Hx Respiratory Failure Musculoskeletal Medical History: Reports Hx Arthritis Psychiatric Medical History: Reports: Hx Depression Infectious Medical History: Reports: Hx MRSA Past Surgical History: Reports: Hx Cardiac Catheterization, Hx Cardiac Surgery - The patient had a Medtronic mitral valve annuloplasty ring placed in 2010., Hx Coronary Artery Bypass Graft - Immunizations Hx Diphtheria, Pertussis, Tetanus Vaccination: No Hx Pneumococcal Vaccination: 12/08/11 Review of Systems - Review of Systems Constitutional: See HPI, Weight gain EENT: No symptoms reported Cardiovascular: No symptoms reported Respiratory: No symptoms reported Gastrointestinal: No symptoms reported Genitourinary: No symptoms reported Female Genitourinary: No symptoms reported Musculoskeletal: No symptoms reported Skin: No symptoms reported Hematologic/Lymphatic: No symptoms reported Neurological/Psychological: No symptoms reported -: Yes All other systems reviewed and negative Physical Exam - Vital signs Vitals: Temp Pulse Resp BP Pulse Ox 97.6 F 100 18 111/65 91 L 07/04/19 15:19 07/04/19 15:19 07/04/19 15:19 07/04/19 15:19 07/04/19 15:19 - Notes Notes: Physical Exam: General: Alert, appears age-appropriate. HEENT: Normocephalic. Atraumatic. PERRL. Extraocular movements intact. Oropharynx clear. Neck: Supple. Non-tender. Respiratory: No respiratory distress. Clear and equal breath sounds bilaterally. Cardiovascular: Regular rate and rhythm. Abdominal: Normal Inspection. Non-tender. No distension. Normal Bowel Sounds. Back: No gross abnormalities. Extremities: Moves all four extremities. Upper extremities: Normal inspection. Normal ROM. Lower extremities: Trace pitting edema bilaterally which has improved since her 1+ pitting edema on 06/23/19 Neurological: Normal cognition. AAOx4. Normal speech. Psychological: Normal affect. Normal Mood. Skin: Warm. Dry. Normal color. Course - Re-evaluation Re-evalutation: 07/04/19 18:59 The patient's pulse ox is 92% on 2 L nasal cannula. She states her breathing feels normal for her. There is minimal edema to the left lower extremity, that is a chronic problem ever since she had veins removed for coronary artery bypass grafting. There is no edema to the right lower extremity. The patient states she is really not quite sure why she is here and she has not noticed any signs of weight fluctuating. We did discuss the need to be sure to 0 out the scale every day and to wear the same clothing when she gets on it every day. She did mention that she is having problems with her new CPAP that she was sent home with. I told her to have her daughter get the make and model number off the box and look it up on [employer] and or find a [employer] video that explains how to set it up and use it properly. The patient's urinalysis does suggest urinary tract infection today. She will be started on Macrodantin and culture will be obtained. - Vital Signs Vital signs: Temp Pulse Resp BP Pulse Ox 97.6 F 100 18 111/65 91 L 07/04/19 15:19 07/04/19 15:19 07/04/19 15:19 07/04/19 15:19 07/04/19 15:19 - Laboratory Result Diagrams: 07/04/19 15:33 07/04/19 15:33 Laboratory results interpreted by me: 07/04/19 07/04/19 07/04/19 15:33 15:33 15:33 RBC 3.69 L Hgb 11.2 L Hct 33.8 L RDW 17.2 H PT Sodium 136.0 L Chloride 94 L Carbon Dioxide 32 H Glucose 113 H AST 40 H NT-Pro-B Natriuret Pep 1580 H Urine Blood Leukocyte Esterase Rfl 07/04/19 07/04/19 15:33 17:08 RBC Hgb Hct RDW PT 20.0 H Sodium Chloride Carbon Dioxide Glucose AST NT-Pro-B Natriuret Pep Urine Blood MODERATE H Leukocyte Esterase Rfl LARGE H - Diagnostic Test Radiology reviewed: Image reviewed, Reports reviewed - Chest x-ray shows COPD with no acute changes. The small bibasilar effusions seen on 06/23/2019 are no longer present. Discharge - Discharge Clinical Impression: Inadequate anticoagulation COPD (chronic obstructive pulmonary disease) Qualifiers: COPD type: unspecified COPD Qualified Code(s): J44.9 - Chronic obstructive pulmonary disease, unspecified Chronic CHF (congestive heart failure) Qualifiers: Heart failure type: unspecified Qualified Code(s): I50.9 - Heart failure, unspecified Urinary tract infection Qualifiers: Urinary tract infection type: site unspecified Hematuria presence: with hematuria Qualified Code(s): N39.0 - Urinary tract infection, site not specified Condition: Stable Disposition: HOME, SELF-CARE Additional Instructions: Urinary Tract Infection Your evaluation indicates that you have a urinary tract infection. This is due to germs growing in the bladder. This is a common problem. This infection usually responds quickly to antibiotics. Your antibiotic should be taken exactly as prescribed. Drink plenty of fluids -- three to four quarts a day. Occasionally, a bladder anesthetic will be prescribed to help stop the feeling of urgency until the antibiotic has a chance to clear the infection. This may cause your urine to be dark orange. Certain urine infections require a culture. If the doctor obtained a culture, the results will be back in two days. You should call to see if a change in treatment is needed. A repeat urinalysis after you finish treatment is often recommended. The physician will let you know if further testing is required. Call the doctor if you develop fever, chills, flank pain, inability to urinate, or blood in the urine. Your evaluation today does not show any signs of fluid retention. You do not have any edema to your lower extremities, and your chest x-ray is clear. Even the small pleural effusions that were present on 06/23/2019, are now gone. Your evaluation does suggest that you have a urinary tract infection. You will be started on antibiotics for that now and the urine will be cultured. You should follow-up with your primary care provider on Saturday to check on the urine culture to see if you need to continue the antibiotics. The weight fluctuations that were reported do not sound accurate given your medications, and your physical findings today. Be sure that someone zeros out the scale every day and it is on a firm flat surface. Also be sure you are wearing the same type and amount of clothing and shoes when you step on the scale every day. Follow-up with your primary care provider if you notice that you are starting to have increased swelling to your legs and ankles. RETURN TO THE EMERGENCY ROOM IF ANY NEW OR WORSENING SYMPTOMS. Prescriptions: Nitrofurantoin Monohyd/M-Cryst [Macrobid 100 mg Capsule] 100 mg PO BID #14 cap I personally performed the services described in the documentation, reviewed and edited the documentation which was dictated to the scribe in my presence, and it accurately records my words and actions.
--- NOTE | 2019-07-04 16:20 | RADIOLOGY REPORT (SQ) ---
EXAM DESCRIPTION: CHEST 2 VIEWS IMAGES COMPLETED DATE/TIME: 07/04/2019 3:53 pm REASON FOR STUDY: ? CHF COMPARISON: 06/23/2019 NUMBER OF VIEWS: Two view. TECHNIQUE: Frontal and lateral radiographic views of the chest acquired. LIMITATIONS: None. FINDINGS: LUNGS AND PLEURA: No opacities, masses or pneumothorax. No pleural effusion. Attenuated bl ood vessels and flattened fatou-diaphragms. MEDIASTINUM AND HILAR STRUCTURES: Stable postoperative contours. Intact sternal wires. HEART AND VASCULAR STRUCTURES: Stable heart size. BONES: Osteopenic. HARDWARE: None in the chest. OTHER: No other significant finding. IMPRESSION: COPD. NO ACUTE RADIOGRAPHIC FINDING IN THE CHEST. TECHNICAL DOCUMENTATION: JOB ID: [id number] 2010 [employer]- All Rights Reserved Reading location - IP/workstation name: [email or web address]
[2019-07-04 16:28] LABS: INTERNATIONAL RATION (INR) 1.68
[2019-07-04 17:45] LABS: APPEARANCE,URINE SLIGHTLY-CLOUDY; BILIRUBIN,URINE NEGATIVE (NEGATIVE); COLOR,URINE YELLOW; GLUCOSE, URINE NEGATIVE (NEGATIVE); KETONES,URINE NEGATIVE (NEGATIVE); PROTEIN,URINE NEGATIVE (NEGATIVE); URINE SPECIFIC GRAVITY 1.016; UROBILINOGEN,URINE NEGATIVE mg/dL (<2.0)
[2019-07-04] MEDS ORDERED: CEPHALEXIN 500 MG CAPSULE PO ONE (19:14)
[2019-07-04] MEDS ORDERED: NITROFURANTOIN MONOHYD/M-CRYST 100 MG CAPSULE PO ONE (19:15)
[2019-07-04 19:51] VITALS: BP 116/54
== END 2019-07-04 19:50 | disposition home or self-care (01) ==
LOC: ER 15:13
DX: J44.9 Chronic obstructive pulmonary disease, unspecified (principal); N39.0 Urinary tract infection, site not specified; R79.89 Other specified abnormal findings of blood chemistry; M79.89 Other specified soft tissue disorders; I50.9 Heart failure, unspecified; I11.0 Hypertensive heart disease with heart failure; I48.91 Unspecified atrial fibrillation; E78.00 Pure hypercholesterolemia, unspecified; Z91.040 Latex allergy status; Z86.14 Personal history of Methicillin resistant Staphylococcus aureus infection; Z95.1 Presence of aortocoronary bypass graft; Z95.2 Presence of prosthetic heart valve
CPT/HCPCS: 99284; 36415; 87086; 85025; 85610; 87088; 80053; 81001; 87186; 83880; 71046; A9270; J8499

== ENCOUNTER → 2019-07-13 | Outpatient (CLI) | payer MEDICARE, MEDICAID ==
[2019-07-13 13:47] LABS: ABSOLUTE EOSINOPHILS # (AUTO) 0.1 10^3/uL (0.0-0.6); ABSOLUTE LYMPHOCYTES (AUTO) 0.4 10^3/uL (0.5-4.7); ABSOLUTE MONOCYTES (AUTO) 0.3 10^3/uL (0.1-1.4); ABSOLUTE NEUT (AUTO) 3.7 10^3/uL (1.7-8.2); BASOPHILS % (AUTO) 0.5 % (0-2); EOSINOPHILS % (AUTO) 1.6 % (0-6); HEMOGLOBIN 11.5 g/dL (12.0-15.5); LYMPHOCYTES % (AUTO) 9.5 % (13-45); MEAN CORPUSCULAR HEMOGLOBIN 30.5 pg (27.0-33.4); MEAN CORPUSCULAR HGB CONC 32.9 g/dL (32.0-36.0); MEAN CORPUSCULAR VOLUME 93 fl (80-97); MONOCYTES % (AUTO) 6.5 % (3-13); PLATELET COUNT 177 10^3/uL (150-450); RED BLOOD COUNT 3.78 10^6/uL (3.72-5.28); RED CELL DISTRIBUTION WIDTH 17.3 % (11.5-14.0); SEGMENTED NEUTROPHILS % (AUTO) 81.9 % (42-78); TOTAL CELLS COUNTED % (AUTO) 100 %; WHITE BLOOD COUNT 4.5 10^3/uL (4.0-10.5)
[2019-07-13 13:49] LABS: INTERNATIONAL RATION (INR) 1.77; PROTHROMBIN TIME 20.8 SEC (11.4-15.4)
[2019-07-13 14:02] LABS: ALBUMIN 3.5 g/dL (3.5-5.0); ALKALINE PHOSPHATASE 87 U/L (38-126); ASPARTATE AMINO TRANSFERASE 72 U/L (14-36); BILIRUBIN,TOTAL 0.4 mg/dL (0.2-1.3); BLOOD UREA NITROGEN 13 mg/dL (7-20); CHLORIDE 92 mmol/L (98-107); GLUCOSE 170 mg/dL (75-110); POTASSIUM 3.8 mmol/L (3.6-5.0); TOTAL PROTEIN 6.2 g/dL (6.3-8.2)
[2019-07-13 14:09] LABS: ANION GAP 6 (5-19); CARBON DIOXIDE 39 mmol/L (22-30)
== END ==
LOC: OD 13:02
PROVIDERS: ATTEND Internal Medicine Cardiovascular Disease
DX: I48.20 Chronic atrial fibrillation, unspecified (principal); I11.0 Hypertensive heart disease with heart failure; I50.9 Heart failure, unspecified
CPT/HCPCS: 36415; 80053; 83880; 85025; 85610

== ENCOUNTER → 2019-07-27 | Outpatient (CLI) | payer MEDICARE, MEDICAID ==
[2019-07-27 09:32] LABS: HEMATOCRIT 42.2 % (36.0-47.0); HEMOGLOBIN 13.8 g/dL (12.0-15.5); MEAN CORPUSCULAR HEMOGLOBIN 30.3 pg (27.0-33.4); MEAN CORPUSCULAR HGB CONC 32.6 g/dL (32.0-36.0); MEAN CORPUSCULAR VOLUME 93 fl (80-97); PLATELET COUNT 249 10^3/uL (150-450); RED BLOOD COUNT 4.54 10^6/uL (3.72-5.28); RED CELL DISTRIBUTION WIDTH 17.3 % (11.5-14.0); WHITE BLOOD COUNT 4.4 10^3/uL (4.0-10.5)
[2019-07-27 09:54] LABS: ANION GAP 10 (5-19); BLOOD UREA NITROGEN 18 mg/dL (7-20); CALCIUM 9.7 mg/dL (8.4-10.2); CARBON DIOXIDE 32 mmol/L (22-30); CHLORIDE 95 mmol/L (98-107); GLUCOSE 112 mg/dL (75-110); POTASSIUM 3.9 mmol/L (3.6-5.0)
== END ==
LOC: OD 08:31
PROVIDERS: ATTEND Physician Assistant
DX: R06.02 Shortness of breath (principal); I48.20 Chronic atrial fibrillation, unspecified; Z79.899 Other long term (current) drug therapy
CPT/HCPCS: 36415; 80048; 83880; 85027

== ENCOUNTER → 2019-07-28 | Outpatient (CLI) | payer MEDICARE, MEDICAID ==
[2019-07-28 10:42] LABS: INTERNATIONAL RATION (INR) 3.64; PROTHROMBIN TIME 37.1 SEC (11.4-15.4)
== END ==
LOC: OD 09:38
PROVIDERS: ATTEND Internal Medicine Cardiovascular Disease
DX: I48.20 Chronic atrial fibrillation, unspecified (principal)
CPT/HCPCS: 36415; 85610

== ENCOUNTER → 2019-08-05 | Outpatient (CLI) | payer MEDICARE, MEDICAID ==
[2019-08-05 10:35] LABS: INTERNATIONAL RATION (INR) 3.54; PROTHROMBIN TIME 36.3 SEC (11.4-15.4)
== END ==
LOC: OD 09:54
PROVIDERS: ATTEND Internal Medicine Cardiovascular Disease
DX: I48.20 Chronic atrial fibrillation, unspecified (principal)
CPT/HCPCS: 36415; 85610

== ENCOUNTER → 2019-08-15 | Outpatient (CLI) | payer MEDICARE, MEDICAID ==
[2019-08-15 11:05] LABS: HEMATOCRIT 42.4 % (36.0-47.0); HEMOGLOBIN 14.2 g/dL (12.0-15.5); MEAN CORPUSCULAR HGB CONC 33.4 g/dL (32.0-36.0); MEAN CORPUSCULAR VOLUME 93 fl (80-97); PLATELET COUNT 171 10^3/uL (150-450); RED BLOOD COUNT 4.57 10^6/uL (3.72-5.28); RED CELL DISTRIBUTION WIDTH 16.5 % (11.5-14.0); WHITE BLOOD COUNT 3.5 10^3/uL (4.0-10.5)
[2019-08-15 11:13] LABS: ALBUMIN 4.4 g/dL (3.5-5.0); ALKALINE PHOSPHATASE 63 U/L (38-126); ANION GAP 8 (5-19); ASPARTATE AMINO TRANSFERASE 37 U/L (14-36); BILIRUBIN,TOTAL 0.5 mg/dL (0.2-1.3); BLOOD UREA NITROGEN 20 mg/dL (7-20); CARBON DIOXIDE 36 mmol/L (22-30); CHLORIDE 94 mmol/L (98-107); CHOLESTEROL 151.11 mg/dL (0-200); GLUCOSE 103 mg/dL (75-110); INTERNATIONAL RATION (INR) 2.29; POTASSIUM 4.7 mmol/L (3.6-5.0); PROTHROMBIN TIME 25.6 SEC (11.4-15.4); TOTAL PROTEIN 6.9 g/dL (6.3-8.2); TRIGLYCERIDES 91 mg/dL (<150)
[2019-08-15 11:24] LABS: DIRECT LDL 80 mg/dL (<100)
== END ==
LOC: OD 08:47
PROVIDERS: ATTEND Physician Assistant
DX: E78.00 Pure hypercholesterolemia, unspecified (principal); I48.20 Chronic atrial fibrillation, unspecified; R06.02 Shortness of breath; Z79.899 Other long term (current) drug therapy
CPT/HCPCS: 36415; 80048; 80061; 80076; 83880; 85027; 85610

== ENCOUNTER → 2019-08-28 | Outpatient (CLI) | payer MEDICARE, MEDICAID ==
[2019-08-28 09:47] LABS: HEMATOCRIT 43.7 % (36.0-47.0); HEMOGLOBIN 14.3 g/dL (12.0-15.5); MEAN CORPUSCULAR HEMOGLOBIN 30.5 pg (27.0-33.4); MEAN CORPUSCULAR HGB CONC 32.8 g/dL (32.0-36.0); MEAN CORPUSCULAR VOLUME 93 fl (80-97); PLATELET COUNT 187 10^3/uL (150-450); RED CELL DISTRIBUTION WIDTH 15.8 % (11.5-14.0); WHITE BLOOD COUNT 3.7 10^3/uL (4.0-10.5)
[2019-08-28 09:53] LABS: INTERNATIONAL RATION (INR) 2.05; PROTHROMBIN TIME 23.4 SEC (11.4-15.4)
[2019-08-28 10:18] LABS: ANION GAP 6 (5-19); BLOOD UREA NITROGEN 21 mg/dL (7-20); CALCIUM 9.8 mg/dL (8.4-10.2); CARBON DIOXIDE 38 mmol/L (22-30); CHLORIDE 95 mmol/L (98-107); GLUCOSE 99 mg/dL (75-110); POTASSIUM 4.3 mmol/L (3.6-5.0)
== END ==
LOC: OD 08:59
PROVIDERS: ATTEND Physician Assistant
DX: E87.6 Hypokalemia (principal); I48.20 Chronic atrial fibrillation, unspecified; R06.02 Shortness of breath; D64.9 Anemia, unspecified
CPT/HCPCS: 36415; 80048; 83880; 85027; 85610

== ENCOUNTER → 2019-09-12 | Outpatient (CLI) | payer MEDICARE, MEDICAID ==
[2019-09-12 09:24] LABS: HEMATOCRIT 41.7 % (36.0-47.0); HEMOGLOBIN 13.6 g/dL (12.0-15.5); MEAN CORPUSCULAR HEMOGLOBIN 30.1 pg (27.0-33.4); MEAN CORPUSCULAR HGB CONC 32.6 g/dL (32.0-36.0); MEAN CORPUSCULAR VOLUME 92 fl (80-97); PLATELET COUNT 159 10^3/uL (150-450); RED BLOOD COUNT 4.52 10^6/uL (3.72-5.28); RED CELL DISTRIBUTION WIDTH 15.2 % (11.5-14.0)
[2019-09-12 09:49] LABS: INTERNATIONAL RATION (INR) 1.93; PROTHROMBIN TIME 22.3 SEC (11.4-15.4)
[2019-09-12 09:51] LABS: ALBUMIN 4.1 g/dL (3.5-5.0); ALKALINE PHOSPHATASE 69 U/L (38-126); ANION GAP 6 (5-19); ASPARTATE AMINO TRANSFERASE 29 U/L (14-36); BILIRUBIN,TOTAL 0.5 mg/dL (0.2-1.3); BLOOD UREA NITROGEN 22 mg/dL (7-20); CALCIUM 9.5 mg/dL (8.4-10.2); CARBON DIOXIDE 35 mmol/L (22-30); CHLORIDE 96 mmol/L (98-107); CHOLESTEROL 125.57 mg/dL (0-200); GLUCOSE 97 mg/dL (75-110); POTASSIUM 4.2 mmol/L (3.6-5.0); TOTAL PROTEIN 6.5 g/dL (6.3-8.2); TRIGLYCERIDES 62 mg/dL (<150)
[2019-09-12 10:02] LABS: DIRECT LDL 70 mg/dL (<100)
== END ==
LOC: OD 08:38
PROVIDERS: ATTEND Internal Medicine Cardiovascular Disease
DX: E78.00 Pure hypercholesterolemia, unspecified (principal); I10 Essential (primary) hypertension; D64.9 Anemia, unspecified; R06.02 Shortness of breath; I48.20 Chronic atrial fibrillation, unspecified; Z79.899 Other long term (current) drug therapy
CPT/HCPCS: 36415; 80048; 80061; 80076; 83880; 85027; 85610

== ENCOUNTER → 2019-09-25 | Outpatient (CLI) | payer MEDICARE, MEDICAID ==
[2019-09-25 10:23] LABS: INTERNATIONAL RATION (INR) 2.61; PROTHROMBIN TIME 28.5 SEC (11.4-15.4)
== END ==
LOC: OD 08:59
PROVIDERS: ATTEND Internal Medicine Cardiovascular Disease
DX: I48.20 Chronic atrial fibrillation, unspecified (principal)
CPT/HCPCS: 36415; 85610

== ENCOUNTER → 2019-10-28 | Outpatient (CLI) | payer MEDICARE, MEDICAID ==
[2019-10-28 11:22] LABS: HEMATOCRIT 40.6 % (36.0-47.0); HEMOGLOBIN 13.4 g/dL (12.0-15.5); MEAN CORPUSCULAR HEMOGLOBIN 30.9 pg (27.0-33.4); MEAN CORPUSCULAR VOLUME 94 fl (80-97); PLATELET COUNT 163 10^3/uL (150-450); RED BLOOD COUNT 4.33 10^6/uL (3.72-5.28); RED CELL DISTRIBUTION WIDTH 14.5 % (11.5-14.0); WHITE BLOOD COUNT 4.5 10^3/uL (4.0-10.5)
[2019-10-28 11:23] LABS: APPEARANCE,URINE CLEAR; BILIRUBIN,URINE NEGATIVE (NEGATIVE); COLOR,URINE STRAW; GLUCOSE, URINE NEGATIVE (NEGATIVE); KETONES,URINE NEGATIVE (NEGATIVE); LEUKOCYTE ESTERASE,URINE SMALL (NEGATIVE); NITRITE,URINE NEGATIVE (NEGATIVE); PROTEIN,URINE NEGATIVE (NEGATIVE); URINE SPECIFIC GRAVITY 1.006; UROBILINOGEN,URINE NEGATIVE mg/dL (<2.0)
[2019-10-28 11:38] LABS: ALBUMIN 4.2 g/dL (3.5-5.0); ALKALINE PHOSPHATASE 79 U/L (38-126); ANION GAP 9 (5-19); ASPARTATE AMINO TRANSFERASE 30 U/L (14-36); BILIRUBIN,TOTAL 0.6 mg/dL (0.2-1.3); BLOOD UREA NITROGEN 19 mg/dL (7-20); CALCIUM 9.2 mg/dL (8.4-10.2); CARBON DIOXIDE 33 mmol/L (22-30); CHLORIDE 93 mmol/L (98-107); GLUCOSE 99 mg/dL (75-110); POTASSIUM 4.5 mmol/L (3.6-5.0); TOTAL PROTEIN 6.7 g/dL (6.3-8.2)
== END ==
LOC: OD 10:17
PROVIDERS: ATTEND Physician Assistant
DX: I48.20 Chronic atrial fibrillation, unspecified (principal); R06.02 Shortness of breath; Z79.01 Long term (current) use of anticoagulants; Z79.899 Other long term (current) drug therapy
CPT/HCPCS: 36415; 80048; 80076; 81001; 82272; 83880; 85027; 85730

== ENCOUNTER 2019-11-07 18:57 | Emergency (ER) | payer MEDICARE, MEDICAID ==
--- NOTE | 2019-11-07 20:31 | ER Document Report ---
ED General - General Chief Complaint: Abdominal Pain Stated Complaint: ABDOMINAL PAIN Time Seen by Provider: 11/07/19 20:26 Primary Care Provider: BRETT LEIVA PA-C [Primary Care Provider] - Follow up as needed Mode of Arrival: Ambulatory Information source: Patient Notes: 74-year-old female patient presents emergency department chief complaint of right upper and right lower quadrant abdominal pain that began yesterday. She also reports 3 episodes of loose stools. Denies any nausea, vomiting, fever or chills. Denies any concern for COVID-19, has not had any exposure to any known positive persons. Has never had pain like this before. Patient denies any history of abdominal surgeries. Her primary care provider is Mirna pleitez. TRAVEL OUTSIDE OF THE [place] IN LAST 30 DAYS: No - Related Data Allergies/Adverse Reactions: JANUSZ Inhibitors [Janusz Inhibitors] Allergy (Verified 07/04/19 15:25) Rash fish derived [Fish derived] Allergy (Verified 07/04/19 15:25) RASH latex Allergy (Verified 07/04/19 15:25) NSAIDS (Non-Steroidal Anti-Inflamma [Nsaids] Allergy (Verified 07/04/19 15:25) RASH tramadol [Tramadol] Allergy (Verified 07/04/19 15:25) RASH Home Medications: HTN med. Antiplatelet. Oxtcodone. injection q2 weeks Past Medical History - General Information source: Patient - Social History Smoking Status: Former Smoker Chew tobacco use (# tins/day): No Frequency of alcohol use: None Family History: CVA, DM Patient has homicidal ideation: No - Past Medical History Cardiac Medical History: Reports: Hx Atrial Fibrillation, Hx Congestive Heart Failure, Hx Coronary Artery Disease, Hx Hypercholesterolemia, Hx Hypertension Denies: Hx Heart Attack Pulmonary Medical History: Reports: Hx COPD, Hx Respiratory Failure Denies: Hx Asthma, Hx Bronchitis, Hx Pneumonia Neurological Medical History: Denies: Hx Cerebrovascular Accident, Hx Seizures Endocrine Medical History: Denies: Hx Hypothyroidism Renal/ Medical History: Denies: Hx Peritoneal Dialysis GI Medical History: Denies: Hx Hepatitis, Hx Hiatal Hernia, Hx Ulcer Musculoskeletal Medical History: Reports Hx Arthritis Psychiatric Medical History: Reports: Hx Depression Infectious Medical History: Reports: Hx MRSA. Denies: Hx Hepatitis Past Surgical History: Reports: Hx Cardiac Catheterization, Hx Cardiac Surgery - The patient had a [employer] mitral valve annuloplasty ring placed in 2010., Hx Coronary Artery Bypass Graft, Hx Open Heart Surgery - CABG X2, VALVE REPLACEMENT, Hx Valve Replacement. Denies: Hx Hysterectomy, Hx Mastectomy, Hx Pacemaker - Immunizations Hx Diphtheria, Pertussis, Tetanus Vaccination: No Hx Pneumococcal Vaccination: 12/08/11 Review of Systems - Review of Systems Constitutional: No symptoms reported EENT: No symptoms reported Cardiovascular: No symptoms reported Respiratory: No symptoms reported Gastrointestinal: Abdominal pain, Diarrhea. denies: Nausea, Vomiting Genitourinary: No symptoms reported Female Genitourinary: No symptoms reported Musculoskeletal: No symptoms reported Skin: No symptoms reported Hematologic/Lymphatic: No symptoms reported Neurological/Psychological: No symptoms reported Physical Exam - Notes Notes: PHYSICAL EXAMINATION: GENERAL: Well-appearing, well-nourished and in no acute distress. HEAD: Atraumatic, normocephalic. EYES: Pupils equal round and reactive to light, extraocular movements intact, c onjunctiva are normal. ENT: Nares patent, oropharynx clear without exudates. Moist mucous membranes. NECK: Normal range of motion, supple without lymphadenopathy LUNGS: Breath sounds clear to auscultation bilaterally and equal. No wheezes rales or rhonchi. HEART: Regular rate and rhythm without murmurs ABDOMEN: Soft, nontender, nondistended abdomen. No guarding, no rebound. No masses appreciated. Female : deferred Musculoskeletal: Normal range of motion, no pitting or edema. No cyanosis. NEUROLOGICAL: Cranial nerves grossly intact. Normal speech. Normal sensory, motor exams PSYCH: Normal mood, normal affect. SKIN: Warm, Dry, normal turgor, no rashes or lesions noted. Course - Re-evaluation Re-evalutation: Laboratory 11/07/19 11/07/19 11/07/19 20:06 20:06 20:34 WBC 13.3 H RBC 4.43 Hgb 13.7 Hct 41.7 MCV 94 MCH 30.8 MCHC 32.7 RDW 14.4 H Plt Count 166 Lymph % (Auto) Not Reportable [place] % (Auto) Not Reportable Eos % (Auto) Not Reportable Baso % (Auto) Not Reportable Absolute Neuts (auto) Not Reportable Absolute Lymphs (auto) Not Reportable Absolute Monos (auto) Not Reportable Absolute Eos (auto) Not Reportable Absolute Basos (auto) Not Reportable Total Counted 100 Seg Neutrophils % Not Reportable Seg Neuts % (Manual) 90 H Band Neutrophils % 2 L Lymphocytes % (Manual) 3 L Monocytes % (Manual) 5 Eosinophils % (Manual) 0 Basophils % (Manual) 0 Abs Neuts (Manual) 12.2 H Abs Lymphs (Manual) 0.4 L Abs Monocytes (Manual) 0.7 Absolute Eos (Manual) 0.0 Abs Basophils (Manual) 0.0 Platelet Comment ADEQUATE RBC Morph Comment NORMO-CYTIC/CHROMIC Sodium 133.1 L Potassium 4.2 Chloride 93 L Carbon Dioxide 34 H Anion Gap 6 BUN 20 Creatinine 0.82 Est GFR ( Amer) > 60 Est GFR (MDRD) Non-Af > 60 Glucose 130 H Calcium 9.4 Total Bilirubin 1.2 Direct Bilirubin 0.0 Neonat Total Bilirubin Not Reportable Neonat Direct Bilirubin Not Reportable Neonat Indirect Bili Not Reportable AST 28 ALT 16 Alkaline Phosphatase 85 Total Protein 6.5 Albumin 4.1 Lipase 61.4 Urine Color YELLOW Urine Appearance SLIGHTLY-CLOUDY Urine pH 6.0 Ur Specific [place] 1.012 Urine Protein NEGATIVE Urine Glucose (UA) NEGATIVE Urine Ketones NEGATIVE Urine Blood LARGE H Urine Nitrite POSITIVE H Urine Bilirubin NEGATIVE Urine Urobilinogen NEGATIVE Ur Leukocyte Esterase LARGE H Urine WBC (Auto) 69 Urine RBC (Auto) 8 U Hyaline Cast (Auto) 1 Urine Bacteria (Auto) 3+ Squamous Epi Cells Auto 1 Urine Ascorbic Acid NEGATIVE Abdomen/Pelvis CT 11/07/19 21:08 IMPRESSION: Artifact from the patient's arm. Imaging is degraded by patient motion, with resultant artifact. The best possible images were obtained. Colitis involving the right and transverse colon. Patient appears well, nontoxic, urinalysis consistent with urinary tract infection, culture pending. CT the abdomen pelvis shows colitis. Patient has not had a fever, she appears well she is an appropriate candidate for outpatient antibiotic therapy. Patient feels comfortable with this plan. She will be discharged home with strict ED return precautions. - Laboratory Result Diagrams: 11/07/19 20:06 11/07/19 20:06 Laboratory results interpreted by me: 11/07/19 11/07/19 11/07/19 20:06 20:06 20:34 WBC 13.3 H RDW 14.4 H Seg Neuts % (Manual) 90 H Band Neutrophils % 2 L Lymphocytes % (Manual) 3 L Abs Neuts (Manual) 12.2 H Abs Lymphs (Manual) 0.4 L Sodium 133.1 L Chloride 93 L Carbon Dioxide 34 H Glucose 130 H Urine Blood LARGE H Urine Nitrite POSITIVE H Ur Leukocyte Esterase LARGE H - Diagnostic Test Radiology reviewed: Image reviewed, Reports reviewed - EKG Interpretation by Me EKG shows normal: Sinus rhythm - rate 124, no ST segment elevations or depressions Rate: Tachycardia Rhythm: A.Fib When compared to previous EKG there are: No significant change Discharge - Discharge Clinical Impression: Colitis UTI (urinary tract infection) Qualifiers: Urinary tract infection type: site unspecified Hematuria presence: with hematuria Qualified Code(s): N39.0 - Urinary tract infection, site not specified Condition: Stable Disposition: HOME, SELF-CARE Additional Instructions: Colitis, Nonspecific Colitis is an inflammatory disease of the large intestine which affects the lining of the bowel. The cause is uncertain, though it is often caused by an infection. In some cases, the symptoms resolve and can return again in the future. Colitis is characterized by abdominal pain, often nausea and vomiting, and either diarrhea or difficulty with bowel movements. Sometimes blood will be present in the bowel movements. Fever is often present as well. Milder cases of colitis can be managed as an outpatient with medications for nausea and vomiting and pain, oral fluid therapy, and perhaps antibiotics, if a bacterial origin is suspected. Antidiarrhea medicine should usually be avoided in colitis. If you have increasing abdominal pain, repeated vomiting, fever, rectal bleeding, or worsening diarrhea, you should return for re-evaluation. Urinary Tract Infection Your evaluation indicates that you have a urinary tract infection. This is due to germs growing in the bladder. This is a common problem. This infection usually responds quickly to antibiotics. Your antibiotic should be taken exactly as prescribed. Drink plenty of fluids -- three to four quarts a day. Occasionally, a bladder anesthetic will be prescribed to help stop the feeling of urgency until the antibiotic has a chance to clear the infection. This may cause your urine to be dark orange. Certain urine infections require a culture. If the doctor obtained a culture, the results will be back in two days. You should call to see if a change in treatment is needed. A repeat urinalysis after you finish treatment is often recommended. The physician will let you know if further testing is required. Call the doctor if you develop fever, chills, flank pain, inability to urinate, or blood in the urine. Please take medications as prescribed. It is very important that you follow-up with your doctor within the next 2 to 3 days for follow-up. Call them Saturday to schedule this. Return to the emergency department with any new or worsening symptoms or if you begin vomiting and are unable to hold down your medications. Prescriptions: Ciprofloxacin HCl [Cipro 500 mg Tablet] 500 mg PO BID #14 tablet Metronidazole [Flagyl 500 mg Tablet] 500 mg PO Q6H #28 tablet Ondansetron [Zofran Odt 4 mg Tablet] 1 - 2 tab PO Q4H PRN #15 tab.rapdis PRN Reason: For Nausea/Vomiting Referrals: BRETT LEIVA PA-C [Primary Care Provider] - Follow up as needed
[2019-11-07 20:47] LABS: HEMATOCRIT 41.7 % (36.0-47.0); HEMOGLOBIN 13.7 g/dL (12.0-15.5); MEAN CORPUSCULAR HEMOGLOBIN 30.8 pg (27.0-33.4); MEAN CORPUSCULAR HGB CONC 32.7 g/dL (32.0-36.0); MEAN CORPUSCULAR VOLUME 94 fl (80-97); PLATELET COUNT 166 10^3/uL (150-450); RED BLOOD COUNT 4.43 10^6/uL (3.72-5.28); RED CELL DISTRIBUTION WIDTH 14.4 % (11.5-14.0); WHITE BLOOD COUNT 13.3 10^3/uL (4.0-10.5)
[2019-11-07 20:51] LABS: ALBUMIN 4.1 g/dL (3.5-5.0); ALKALINE PHOSPHATASE 85 U/L (38-126); ANION GAP 6 (5-19); ASPARTATE AMINO TRANSFERASE 28 U/L (14-36); BILIRUBIN,TOTAL 1.2 mg/dL (0.2-1.3); BLOOD UREA NITROGEN 20 mg/dL (7-20); CALCIUM 9.4 mg/dL (8.4-10.2); CARBON DIOXIDE 34 mmol/L (22-30); CHLORIDE 93 mmol/L (98-107); GLUCOSE 130 mg/dL (75-110); POTASSIUM 4.2 mmol/L (3.6-5.0); TOTAL PROTEIN 6.5 g/dL (6.3-8.2)
[2019-11-07 21:01] LABS: APPEARANCE,URINE SLIGHTLY-CLOUDY; BILIRUBIN,URINE NEGATIVE (NEGATIVE); COLOR,URINE YELLOW; GLUCOSE, URINE NEGATIVE (NEGATIVE); KETONES,URINE NEGATIVE (NEGATIVE); LEUKOCYTE ESTERASE,URINE LARGE (NEGATIVE); NITRITE,URINE POSITIVE (NEGATIVE); PROTEIN,URINE NEGATIVE (NEGATIVE); URINE SPECIFIC GRAVITY 1.012; UROBILINOGEN,URINE NEGATIVE mg/dL (<2.0)
--- NOTE | 2019-11-07 21:06 | EKG REPORT ---
SEVERITY:- ABNORMAL ECG - SINUS TACHYCARDIA NONSPECIFIC IVCD WITH LAD LVH WITH SECONDARY REPOLARIZATION ABNORMALITY : Confirmed by: Linnea Diaz MD 07-Nov-2019 21:05:43
[2019-11-07] MEDS ORDERED: FENTANYL CITRATE INJ/PF 100 MCG/2 ML AMPUL IV ONE (21:08)
[2019-11-07 21:14] LABS: ABSOLUTE LYMPHOCYTES# (MANUAL) 0.4 10^3/uL (0.5-4.7); ABSOLUTE MONOCYTES # (MANUAL) 0.7 10^3/uL (0.1-1.4); BAND NEUTROPHILS % (MANUAL) 2 % (3-5); BASOPHILS % (MANUAL) 0 % (0-2); EOSINOPHILS % (MANUAL) 0 % (0-6); LYMPHOCYTES % (MANUAL) 3 % (13-45); MONOCYTES % (MANUAL) 5 % (3-13); PLATELET COMMENT ADEQUATE; RBC MORPHOLOGY COMMENT NORMO-CYTIC/CHROMIC; SEGMENTED NEUTROPHILS % (MAN) 90 % (42-78); TOTAL CELLS COUNTED 100
[2019-11-07] MEDS ORDERED: CEFTRIAXONE 1 GM/D5W RTU 50 ML IV ONE (21:27)
[2019-11-07] MEDS ORDERED: CEFTRIAXONE 1 GM/D5W RTU 1 GM/50 ML RTUPB IV ONE (21:59)
[2019-11-07] MEDS ORDERED: NORMAL SALINE 500 ML IV ONE (22:12)
--- NOTE | 2019-11-08 00:31 | RADIOLOGY REPORT (SQ) ---
CLINICAL INDICATION: R side abd pain. . TECHNIQUE: Contrast enhanced spiral axial CT imaging was obtained of the abdomen and pelvis with multiplanar reconstructions. This exam was performed according to our departmental dose-optimization program, which includes automated exposure control, adjustment of the mA and/or kV according to patient size and/or use of iterative reconstruction techniques. COMPARISON: None. CORRELATION: None. FINDINGS: Abdomen: The lung bases are grossly clear. The heart is prominent with postsurgical change. No evidence of pleural or pericardial fluid. The liver is homogeneous. The gallbladder is nondistended without inflammatory change. The pancreas is unremarkable. The spleen is unremarkable. The adrenals are unremarkable. The kidneys demonstrate atrophy of the left kidney. There is no evidence of free air. No free fluid. No bulky adenopathy. Abdominal aorta is calcified but nonaneurysmal. Pelvis: The bowel is nonobstructed. The bowel is unopacified with oral contrast. Pelvic contents are unremarkable. The appendix is normal. Inflammatory change of the right hemicolon extending to transverse colon. Diverticulosis. No acute diverticulitis. Visualized bones demonstrate scoliosis. Osteoarthritis. IMPRESSION: Artifact from the patient's arm. Imaging is degraded by patient motion, with resultant artifact. The best possible images were obtained. Colitis involving the right and transverse colon.
[2019-11-08] MEDS ORDERED: METRONIDAZOLE 500 MG TABLET PO ONE (00:48)
[2019-11-08] MEDS ORDERED: CIPROFLOXACIN HCL 500 MG TABLET PO ONE (00:48)
[2019-11-08] MEDS ORDERED: HYDROCODONE/ACETAMINOPHEN 5-325 MG (6 TAB/ER DISP) PO PRN (01:17)
[2019-11-08] MEDS ORDERED: ONDANSETRON 4 MG TAB.RAPDIS PO ONE (04:48)
[2019-11-08] MEDS ORDERED: HYDROCODONE/ACETAMINOPHEN 5-325 MG TABLET PO ONE (04:48)
[2019-11-08 07:57] VITALS: BP 112/59
== END 2019-11-08 07:53 | disposition home or self-care (01) ==
LOC: ER 18:57
DX: N39.0 Urinary tract infection, site not specified (principal); K52.9 Noninfective gastroenteritis and colitis, unspecified; R10.11 Right upper quadrant pain; R10.31 Right lower quadrant pain; Z88.8 Allergy status to other drugs, medicaments and biological substances; Z79.899 Other long term (current) drug therapy; Z87.891 Personal history of nicotine dependence; I48.91 Unspecified atrial fibrillation; I50.9 Heart failure, unspecified; I25.10 Atherosclerotic heart disease of native coronary artery without angina pectoris; I10 Essential (primary) hypertension; J44.9 Chronic obstructive pulmonary disease, unspecified
CPT/HCPCS: 93005; 99284; 96361; 96375; 96365; 36415; 87086; 83690; 85025; 87088; 80053; 81001; 87186; 74177; 93010; A9270 ×5; J3010; J7040; J0696; S0119

== ENCOUNTER → 2020-01-13 | Outpatient (CLI) | payer MEDICARE, MEDICAID ==
[2020-01-13 13:36] LABS: HEMATOCRIT 41.9 % (36.0-47.0); HEMOGLOBIN 14.3 g/dL (12.0-15.5); MEAN CORPUSCULAR HEMOGLOBIN 32.3 pg (27.0-33.4); MEAN CORPUSCULAR VOLUME 95 fl (80-97); PLATELET COUNT 168 10^3/uL (150-450); RED BLOOD COUNT 4.42 10^6/uL (3.72-5.28); RED CELL DISTRIBUTION WIDTH 13.1 % (11.5-14.0); WHITE BLOOD COUNT 4.8 10^3/uL (4.0-10.5)
[2020-01-13 13:45] LABS: APPEARANCE,URINE CLEAR; BILIRUBIN,URINE NEGATIVE (NEGATIVE); COLOR,URINE YELLOW; GLUCOSE, URINE NEGATIVE (NEGATIVE); KETONES,URINE NEGATIVE (NEGATIVE); LEUKOCYTE ESTERASE,URINE LARGE (NEGATIVE); NITRITE,URINE NEGATIVE (NEGATIVE); PROTEIN,URINE NEGATIVE (NEGATIVE); URINE SPECIFIC GRAVITY 1.005; UROBILINOGEN,URINE NEGATIVE mg/dL (<2.0)
[2020-01-13 14:00] LABS: ALBUMIN 4.4 g/dL (3.5-5.0); ALKALINE PHOSPHATASE 100 U/L (38-126); ANION GAP 11 (5-19); ASPARTATE AMINO TRANSFERASE 34 U/L (14-36); BILIRUBIN,DIRECT 0.3 mg/dL (0.0-0.4); BILIRUBIN,TOTAL 0.7 mg/dL (0.2-1.3); BLOOD UREA NITROGEN 17 mg/dL (7-20); CALCIUM 9.5 mg/dL (8.4-10.2); CARBON DIOXIDE 33 mmol/L (22-30); CHLORIDE 94 mmol/L (98-107); GLUCOSE 113 mg/dL (75-110); POTASSIUM 4.9 mmol/L (3.6-5.0); TOTAL PROTEIN 6.9 g/dL (6.3-8.2)
== END ==
LOC: OD 12:37
PROVIDERS: ATTEND Physician Assistant
DX: R06.02 Shortness of breath (principal); I48.20 Chronic atrial fibrillation, unspecified; Z79.01 Long term (current) use of anticoagulants; Z79.899 Other long term (current) drug therapy
CPT/HCPCS: 36415; 80048; 80076; 81001; 82272; 83880; 85027; 85730

== ENCOUNTER → 2020-04-13 | Outpatient (CLI) | payer MEDICARE, MEDICAID ==
[2020-04-13 11:50] LABS: HEMOGLOBIN 13.8 g/dL (12.0-15.5); MEAN CORPUSCULAR HEMOGLOBIN 31.6 pg (27.0-33.4); MEAN CORPUSCULAR HGB CONC 33.7 g/dL (32.0-36.0); MEAN CORPUSCULAR VOLUME 94 fl (80-97); PLATELET COUNT 200 10^3/uL (150-450); RED BLOOD COUNT 4.37 10^6/uL (3.72-5.28); RED CELL DISTRIBUTION WIDTH 13.3 % (11.5-14.0); WHITE BLOOD COUNT 5.9 10^3/uL (4.0-10.5)
[2020-04-13 12:16] LABS: APPEARANCE,URINE SLIGHTLY-CLOUDY; BILIRUBIN,URINE NEGATIVE (NEGATIVE); COLOR,URINE YELLOW; GLUCOSE, URINE NEGATIVE (NEGATIVE); KETONES,URINE NEGATIVE (NEGATIVE); LEUKOCYTE ESTERASE,URINE LARGE (NEGATIVE); NITRITE,URINE NEGATIVE (NEGATIVE); PROTEIN,URINE NEGATIVE (NEGATIVE); URINE SPECIFIC GRAVITY 1.006; UROBILINOGEN,URINE NEGATIVE mg/dL (<2.0)
[2020-04-13 12:18] LABS: ALBUMIN 4.1 g/dL (3.5-5.0); ALKALINE PHOSPHATASE 87 U/L (38-126); ANION GAP 7 (5-19); ASPARTATE AMINO TRANSFERASE 31 U/L (14-36); BILIRUBIN,DIRECT 0.2 mg/dL (0.0-0.4); BILIRUBIN,TOTAL 0.8 mg/dL (0.2-1.3); BLOOD UREA NITROGEN 20 mg/dL (7-20); CALCIUM 9.3 mg/dL (8.4-10.2); CARBON DIOXIDE 36 mmol/L (22-30); CHLORIDE 93 mmol/L (98-107); GLUCOSE 98 mg/dL (75-110); POTASSIUM 4.4 mmol/L (3.6-5.0); TOTAL PROTEIN 6.8 g/dL (6.3-8.2)
== END ==
LOC: OD 10:38
PROVIDERS: ATTEND Physician Assistant
DX: I48.20 Chronic atrial fibrillation, unspecified (principal); R06.02 Shortness of breath; Z79.01 Long term (current) use of anticoagulants; Z79.899 Other long term (current) drug therapy
CPT/HCPCS: 36415; 80048; 80076; 81001; 82272; 83880; 85027; 85730